=== PATIENT | male | born 1955 | race African-American/Black ===

== ENCOUNTER 2017-02-03 13:48 | Inpatient (IN) | payer OTHER ==
[~2017-02-03] VITALS: Ht 180.3 cm; Wt 88.6 kg
--- NOTE | ~2017-02-03 | CT57 ---
[facility] A Service of [facility] & [facility] RADIOLOGY TEXT RESULTS PATIENT: JOSUE RODRÍGUEZ LOCATION: [address]-18 : 55 UNIT #: [id number] AGE: [address]: Morenita Caballero MD SEX: M ORDER DR: [id number] [facility] [address] [facility]. [place], [place] [address] [id number] I MR#: [id number] Acc #: [id number] NAME: JOSUE RODRÍGUEZ : 1955 SEX: M STUDY DATE/TIME: 02/14/2017 11:12 UNIT: [facility] ROOM: [facility] STUDY DESCRIPTION: CT Chest Wo Cont Attending Physician: Morenita Caballero M.D. Ordering Physician: Morenita Caballero M.D. Primary Care Physician: Primary Care Physician No MEDICAL IMAGING REPORT This report is preliminary unless electronic signature is present EXAM CT of the chest without contrast INDICATIONS Respiratory failure since February 08, 2017. TECHNIQUE Axial CT images were obtained from the thoracic inlet through the dome of the diaphragm. No intravenous contrast material was administered. This CT exam was performed with one or more of the following radiation dose reduction techniques: automatic control, adjustment of mA and/or kV according to patient size, and iterative reconstruction. FINDINGS Endotracheal tube terminates at the level of the juanito. The thyroid gland appears unremarkable. Patient has a weighted enteric feeding tube which is seen extending at least as far as the stomach. There is a right subclavian central venous line as well as a right internal jugular vein catheter. Thoracic aorta measures within normal size limits. Main pulmonary artery is dilated as can be seen in the setting of pulmonary arterial hypertension. This was not present on February 03, 2017. Patient is noted to have a small pericardial effusion also new when compared to that examination. Patient does have patchy multifocal infiltrates seen throughout both lungs as well as dense bibasilar consolidation small bilateral pleural effusions. These are new when compared to the exam from February 03, 2017. Patient's CT of the abdomen and pelvis will be dictated separately. Patient is noted to have some body wall edema which is new when compared to the prior exam. No aggressive osseous abnormalities are seen. IMPRESSION 1. Patient is noted to have patchy multifocal infiltrates, within STS. [facility] A Service of [facility] & [facility] RADIOLOGY TEXT RESULTS PATIENT: JOSUE RODRÍGUEZ LOCATION: [facility]3-18 : 55 UNIT #: [id number] AGE: [address]: Morenita Caballero MD SEX: M ORDER DR: both lungs as well as bibasilar consolidation; some of the appearance may simply reflect some atelectasis but the possibility of multifocal pneumonia should be considered. ARDS would be another consideration in the appropriate clinical setting. 2. Enlargement of the main pulmonary artery new when compared to the prior study. The appearance can be seen in the setting of pulmonary arterial hypertension. Please see the separately dictated report for findings within the abdomen and pelvis Dictated by... Comfort Henderson M.D. THIS IS AN ELECTRONICALLY VERIFIED REPORT Comfort Henderson M.D. at 02/15/2017 6:09 PM AFF/rnr TD: 02/14/2017 17:16 JOB #: [id number] MEDICAL IMAGING REPORT Page 1 of 1 COPY
--- NOTE | ~2017-02-03 | CR72 ---
[facility] A Service of [facility] RADIOLOGY TEXT RESULTS PATIENT: JOSUE RODRÍGUEZ LOCATION: [facility]-29 : 55 UNIT #: [id number] AGE: [address]: Morenita Caballero MD SEX: M ORDER DR: [id number] [address] [address] [id number] I MR#: [id number] Acc #: [id number] NAME: JOSUE RODRÍGUEZ : 1955 SEX: M STUDY DATE/TIME: 02/17/2017 6:26 UNIT: [facility] ROOM: [facility] STUDY DESCRIPTION: CR Chest Single View Portable Attending Physician: Morenita Caballero M.D. Ordering Physician: Matias Michaud M.D. Primary Care Physician: Primary Care Physician No MEDICAL IMAGING REPORT This report is preliminary unless electronic signature is present EXAM Portable chest INDICATION Respiratory failure today. PROCEDURE Frontal view chest. COMPARISON 02/16/2017. FINDINGS Heart size stable. ET tube unchanged. Interstitial and alveolar opacity in both lungs is minimally increased. No visible pleural fluid or pneumothorax. IMPRESSION Slightly increased interstitial and alveolar opacity in both lungs, suspicious for edema but could also represent worsening pneumonia. Otherwise stable. Dictated by... Mike Wise M.D. THIS IS AN ELECTRONICALLY VERIFIED REPORT Mike Wise M.D. at 02/18/2017 8:16 AM EED/mattie TD: 02/17/2017 07:43 JOB #: [id number] [facility] A Service of [facility] RADIOLOGY TEXT RESULTS PATIENT: JOSUE RODRÍGUEZ LOCATION: [facility]09-29 : 55 UNIT #: [id number] AGE: [address]: Morenita Caballero MD SEX: M ORDER DR: MEDICAL IMAGING REPORT Page 1 of 1 COPY
--- NOTE | ~2017-02-03 | CO ---
Unit #: [id number] #: [id number] Patient: JOSUE RODRÍGUEZ [id number] [facility] [address] [facility]. [place], [place] [address] [id number] I MR#: [id number] NAME: JOSUE RODRÍGUEZ ROOM: [facility] Age: 61 Sex: M Admission Date: 02/03/2017 : 1955 Attending Physician: Morenita Caballero M.D. Primary Care Physician: Milli Primary Care Physician Consultation Date: 02/07/2017 CONSULTATION REPORT REASON FOR CONSULTATION Agitation, confusion, delirium. HISTORY OF PRESENT ILLNESS Mr. Josue Rodríguez is a 61-year-old male seen in CCU 2, bed 8 on 02/07/[address] [facility]. Patient became agitated this morning, aggressive, and hostile and security was called. Code (1) was called. Patient was given Haldol 5 and Cogentin 0.5 intramuscularly, which was repeated after an hour. Patient received Geodon 10 mg, which was ineffective. Patient also received Ativan 1 mg IM. Patient was confused and unable to give any information. Agitated and aggressive. Patient unable to give any reliable information. Most of the information obtained from the nursing staff as well as from the chart. Patient continues to be agitated and needed restraint of bilateral arms. Patient was admitted with shortness of air and respiratory failure. Patient was admitted on 02/03. Patient, according to the reports, no history of any alcohol abuse, drug abuse, depression/anxiety. Patient's vital signs: 103, 133, 155/95, and oxygen saturation 95%. PAST PSYCHIATRIC HISTORY Unremarkable for history of depression, anxiety, or any substance abuse. MEDICAL HISTORY AND MEDICATION HISTORY Medical history is remarkable for history of coronary artery disease diagnosed recently and history of depression. Medications: Patient is on: 1. Lopressor 75 mg b.i.d. 2. Hydralazine. 3. Wellbutrin XL 150 mg daily. 4. Ambien 5 mg q.h.s. p.r.n. for sleep. FAMILY HISTORY AND SOCIAL HISTORY Patient has a good support system. No history of abuse. No history of any substance abuse known at this time. REVIEW OF SYSTEMS Complete review of systems unremarkable, except as mentioned above. MENTAL STATUS EXAMINATION VITAL SIGNS: Please see above. GENERAL APPEARANCE: Patient dressed in hospital attire. Needing restraint. Agitated. Incoherent. ATTENTION SPAN AND CONCENTRATION: Poor. Unit #: [id number] #: [id number] Patient: JOSUE RODRÍGUEZ SPEECH: Unable to assess. ORIENTATION: Unable to assess. MOOD AND AFFECT: Labile. THOUGHT PROCESS/THOUGHT CONTENT: Unable to assess. RECENT AND REMOTE MEMORY/LANGUAGE/FUND OF KNOWLEDGE/INSIGHT AND JUDGEMENT: Impaired. DIAGNOSES PSYCHIATRIC: Delirium, F05. SECONDARY DIAGNOSIS: Deferred. MEDICAL DIAGNOSIS: Please refer to H and P. STRESSORS: Psychosocial stressor. ASSESSMENT/PLAN Advised to continue with the current treatment in CCU 2, bed 8. Patient received Haldol, Cogentin, and Geodon this morning. Patient is on CINM protocol. We will try to obtain collateral information. If needed, consider further adjustment of medication. Dictated by... Otilia Philip/lisandra TD: 02/08/2017 08:47 JOB #: [id number] CONSULTATION REPORT Page 1 of 1 X Ismael Navarro MD X CONSULTATION REPORT
--- NOTE | ~2017-02-03 | CR7 ---
[facility] A Service of [facility] & [facility] RADIOLOGY TEXT RESULTS PATIENT: JOSUE RODRÍGUEZ [address] UNIT #: [id number] AGE: [address]: Morenita Caballero MD SEX: M ORDER DR: [id number] [facility] [address] [facility]. [place], [place] [address] [id number] I MR#: [id number] Acc #: [id number] NAME: JOSUE RODRÍGUEZ : 1955 SEX: M STUDY DATE/TIME: 02/18/2017 15:43 [facility] STUDY DESCRIPTION: CR Abdomen Single AP View Attending Physician: Morenita Caballero M.D. Ordering Physician: Morenita Caballero M.D. Primary Care Physician: Primary Care Physician No MEDICAL IMAGING REPORT This report is preliminary unless electronic signature is present EXAM KUB INDICATIONS Abdominal pain and distension since February 18, 2017. FINDINGS Weighted enteric feeding tube is identified which probably is located within the proximal body of the stomach. Patient has some gaseous distension of loops of bowel, although the bowel gas pattern is certainly not frankly obstructive. Ospina catheter is present within the urinary bladder. Dictated by... Comfort Henderson M.D. THIS IS AN ELECTRONICALLY VERIFIED REPORT Comfort Henderson M.D. at 02/20/2017 4:22 PM AFF/psc TD: 02/19/2017 02:00 JOB #: [id number] MEDICAL IMAGING REPORT Page 1 of 1 COPY
--- NOTE | ~2017-02-03 | NM21 ---
[facility] A Service of [facility] & [facility] RADIOLOGY TEXT RESULTS PATIENT: JOSUE RODRÍGUEZ LOCATION: [facility] 548- : 55 UNIT #: [id number] AGE: [address]: Morenita Caballero MD SEX: M ORDER DR: [id number] [facility] [address] [facility]. [place], [place] [address] [id number] I MR#: [id number] Acc #: [id number] NAME: JOSUE RODRÍGUEZ : 1955 SEX: M STUDY DATE/TIME: 02/21/2017 18:40 [facility] STUDY DESCRIPTION: NM Hepatobiliary W GB Attending Physician: Morenita Caballero M.D. Ordering Physician: Morenita Caballero M.D. Primary Care Physician: Primary Care Physician No MEDICAL IMAGING REPORT This report is preliminary unless electronic signature is present EXAM Hepatobiliary scan HISTORY Abdominal pain and elevated liver enzymes; symptom duration is [address] abdomen and pelvis dated 02/14/2017. FINDINGS There is prompt uptake by hepatocytes, clearance from the blood pool, excretion of the biliary tree and filling of small bowel. There is no filling of the gallbladder. IMPRESSION Nonfilling of the gallbladder suggesting cystic duct obstruction. Dictated by... Caesar Barroso M.D. THIS IS AN ELECTRONICALLY VERIFIED REPORT Caesar Barroso M.D. at 03/01/2017 4:55 PM TEV/psc TD: 02/22/2017 02:26 JOB #: [id number] MEDICAL IMAGING REPORT Page 1 of 1 COPY
--- NOTE | ~2017-02-03 | CR6 ---
[facility] A Service of [facility] & [facility] RADIOLOGY TEXT RESULTS PATIENT: JOSUE RODRÍGUEZ LOCATION: [address]18 : 55 UNIT #: [id number] AGE: [address]: Morenita Caballero MD SEX: M ORDER DR: [id number] [facility] [address] [facility]. [place], [place] [address] [id number] I MR#: [id number] Acc #: [id number] NAME: JOSUE RODRÍGUEZ : 1955 SEX: M STUDY DATE/TIME: 02/17/2017 9:20 UNIT: [facility] ROOM: [facility] STUDY DESCRIPTION: CR Abdomen Portable Sng View Attending Physician: Morenita Caballero M.D. Ordering Physician: Matias Michaud M.D. Primary Care Physician: Primary Care Physician No MEDICAL IMAGING REPORT This report is preliminary unless electronic signature is present EXAM Abdominal radiograph INDICATION Dobbhoff tube placement. Abdominal distension since 02/13/2017. FINDINGS The enteric tube is stable in position positioned in the proximal stomach. Nonobstructive pattern. IMPRESSION Stable from 02/16/2017 with enteric tube in the proximal stomach. Dictated by... Mike Wise M.D. THIS IS AN ELECTRONICALLY VERIFIED REPORT Mike Wise M.D. at 02/18/2017 8:15 AM PRISCA/mattie TD: 02/17/2017 09:44 JOB #: [id number] MEDICAL IMAGING REPORT Page 1 of 1 COPY
--- NOTE | ~2017-02-03 | CO ---
Unit #: [id number] #: [id number] Patient: JOSUE RODRÍGUEZ [id number] [address] [place], [place] [address] [id number] I MR#: [id number] NAME: JOSUE RODRÍGUEZ ROOM: 549 Age: 61 Sex: M Admission Date: 02/03/2017 : 1955 Attending Physician: Morenita Caballero M.D. Primary Care Physician: No Primary Care Physician Consultation Date: 02/06/2017 CONSULTATION REPORT REASON FOR CONSULTATION Gross hematuria and urinary retention. HISTORY This 61-year-old man presented to the emergency department with chest pain. He was heparinized and the following day, 2 days ago, proceeded to cardiac catheterization with significant coronary disease, for which he received 3 XIENCE stents. Candie-procedurally he had catheter placed, which was subsequently removed yesterday. After the catheterization, there was brief gross hematuria, which spontaneously resolved. He has had no hematuria before. He does have a significant smoking history of 45 years, always less than a pack per day, most recently 8 cigarettes per day, and he decides that he will never smoke again. He has no history of kidney stones or urinary tract infection. CT scans as noted below. He does complain of more difficulty urinating now than before hospitalization with the sense of straining, but he is going good amounts, clear. He denies any hesitancy or trouble emptying but does have some increased frequency. At home, he has nocturia 2 to 3 times nightly but good stream, no hesitancy, no frequency or urgency by day. PAST MEDICAL HISTORY Coronary disease now diagnosed. No chronic prehospital illnesses. SURGERIES None. MEDICATIONS None on admission. ALLERGIES None known. FAMILY HISTORY Father diagnosed with prostate cancer, age 88. SOCIAL HISTORY Smoking, as noted. REVIEW OF SYSTEMS Chest pain, resolved, in addition to the history of present illness. Unit #: [id number] #: [id number] Patient: JOSUE RODRÍGUEZ PHYSICAL EXAMINATION GENERAL: The patient is lying in bed in the ICU, alert, comfortable. ABDOMEN: Abdomen is large, soft, full. No masses, tenderness, hernias or scars. GENITALIA: Phallus normal circumcised. Testes and epididymides normal, descended. RECTAL: He refuses a digital examination. EXTREMITIES: No edema. NEUROLOGIC: Intact. VITAL SIGNS: Temperature 98.8, pulse 97, blood pressure 143/72, respirations 25. Height 5'11", weight 194 pounds. DIAGNOSTIC STUDIES LABORATORY: Urinalysis shows 50-100 red cells, 2-5 white cells, no bacteria. BUN 26, creatinine 1.1, improved from admission values. Hemoglobin 12.5, WBC 9.1, platelets 249. Urine culture, preliminary - No growth. X-RAYS: CT angiogram on 02/03 urologically notable for a questionable right adrenal nodule. No pulmonary embolus. CT scan of the abdomen and pelvis without and with IV contrast with thin cuts from 02/05 rules out an adrenal nodule, although there may be some adrenal hyperplasia. Large prostate is noted. Otherwise is urologically normal. Films personally reviewed. Specifically, no masses or filling defects in the urinary system. Again, some BPH noted. IMPRESSION 1. Gross hematuria secondary to Ospina catheter placement and anticoagulation and has probably resolved. 2. Mild lower urinary tract symptoms consistent with BPH. 3. Family history of prostate cancer at an advanced age. 4. Noncompliance with examination and cystoscopy recommendations. PLAN Will check a PSA and start him on tamsulosin. Will follow up on culture results. Follow urinalysis. At some appropriate also to rule out stronger indication for cystoscopic exam in the future. He is advised, certainly, to have this done should the hematuria reoccur even if while chronically anticoagulated. Thank you, Morenita, for the consult. We will follow with you. Dictated by... Marlon Deleon M.D. HEMALATHA/arcelia TD: 02/07/2017 08:35 JOB #: [id number] Unit #: [id number] #: [id number] Patient: JOSUE RODRÍGUEZ CONSULTATION REPORT Page 1 of 1 X Marlon Deleon MD X CONSULTATION REPORT
--- NOTE | ~2017-02-03 | CR72 ---
[facility] A Service of [facility] RADIOLOGY TEXT RESULTS PATIENT: JOSUE RODRÍGUEZ LOCATION: [address] : 55 UNIT #: [id number] AGE: [address]: Morenita Caballero MD SEX: M ORDER DR: [id number] [facility] [address] [facility]. [place], [place] [address] [id number] I MR#: [id number] Acc #: [id number] NAME: JOSUE RODRÍGUEZ : 1955 SEX: M STUDY DATE/TIME: UNIT: [facility] ROOM: [facility] STUDY DESCRIPTION: CR Chest Single View Portable Attending Physician: Morenita Caballero M.D. Ordering Physician: Matias Michaud M.D. Primary Care Physician: Primary Care Physician No MEDICAL IMAGING REPORT This report is preliminary unless electronic signature is present EXAM Chest portable 02/21/2017 0628 hours HISTORY 61-year-old with 1-month history of respiratory failure, shortness of air, atrial fibrillation, hypertension and coronary stents. COMPARISON 02/21/2017 FINDINGS 2 upright portable views demonstrate a stable right PICC line and right-sided pacer wire. There is an enteric tube present with tip extending to the mid body of the stomach. There is stable cardiomegaly and tortuous aorta. Lung volumes are improved with interval decrease in bilateral mixed interstitial and airspace changes suggesting improved edema. No pneumothorax or effusion. IMPRESSION 1. Stable satisfactory positioning of support equipment. 2. Stable cardiomegaly. 3. Improved lung volumes with decrease in bilateral parenchymal changes likely improving edema. No effusion or pneumothorax. Dictated by... Carlene Gallegos M.D. THIS IS AN ELECTRONICALLY VERIFIED REPORT Carlene Gallegos M.D. at 02/22/2017 9:32 AM SMM/to TD: 02/21/2017 16:11 JOB #: [id number] [facility] A Service of [facility] RADIOLOGY TEXT RESULTS PATIENT: JOSUE RODRÍGUEZ LOCATION: [address]05 : 55 UNIT #: [id number] AGE: [address]: Morenita Caballero MD SEX: M ORDER DR: MEDICAL IMAGING REPORT Page 1 of 1 COPY
--- NOTE | ~2017-02-03 | CR72 ---
[facility] A Service of [facility] RADIOLOGY TEXT RESULTS PATIENT: JOSUE RODRÍGUEZ LOCATION: [address]-18 : 55 UNIT #: [id number] AGE: [address]: Morenita Caballero MD SEX: M ORDER DR: [id number] [facility] [address] [facility]. [place], [place] [address] [id number] I MR#: [id number] Acc #: [id number] NAME: JOSUE RODRÍGUEZ : 1955 SEX: M STUDY DATE/TIME: 02/13/2017 20:15 UNIT: [facility] ROOM: [facility] STUDY DESCRIPTION: CR Chest Single View Portable Attending Physician: Morenita Caballero M.D. Ordering Physician: Erik Brown M.D. MEDICAL IMAGING REPORT This report is preliminary unless electronic signature is present EXAM Chest portable, 02/13/2017 2015 hours CLINICAL HISTORY Respiratory failure. Shortness of air, chest pain. Postop pacemaker placement for atrial fibrillation today. COMPARISON 02/13/2017 at O230 hours. FINDINGS Portable upright chest demonstrates an endotracheal tube 2.5 cm above the juanito. There is a right subclavian pacer wire present with tip at the right ventricle. There is a right IJ catheter with tip at junction of SVC and right atrium. There is bilateral interstitial change which is stable. There is no pneumothorax. IMPRESSION 1. Endotracheal tube 2.5 cm above the juanito. There is a right subclavian pacer wire present with tip terminating over the right ventricle. There is a right IJ catheter unchanged with tip at junction of SVC and right atrium. There is an enteric tube with tip in the proximal stomach. 2. Stable cardiomegaly and bilateral interstitial changes. 3. No pleural effusion or pneumothorax. Dictated by... Carlene Gallegos M.D. THIS IS AN ELECTRONICALLY VERIFIED REPORT Carlene Gallegos M.D. at 02/14/2017 2:38 PM [facility] A Service of [facility] RADIOLOGY TEXT RESULTS PATIENT: JOSUE RODRÍGUEZ LOCATION: [facility]3-18 : 55 UNIT #: [id number] AGE: [address]: Morenita Caballero MD SEX: M ORDER DR: Luanne TD: 02/13/2017 21:11 JOB #: [id number] MEDICAL IMAGING REPORT Page 1 of 1 COPY
--- NOTE | ~2017-02-03 | CR7 ---
[facility] A Service of [facility] & [facility] RADIOLOGY TEXT RESULTS PATIENT: JOSUE RODRÍGUEZ LOCATION: [facility] 548-01 : 55 UNIT #: [id number] AGE: [address]: Morenita Caballero MD SEX: M ORDER DR: [id number] [facility] [address] [facility]. [place], [place] [address] [id number] I MR#: [id number] Acc #: [id number] NAME: JOSUE RODRÍGUEZ : 1955 SEX: M STUDY DATE/TIME: 02/24/2017 5:43 UNIT: [facility] ROOM: [facility] STUDY DESCRIPTION: CR Abdomen Single AP View Attending Physician: Morenita Caballero M.D. Ordering Physician: Morenita Caballero M.D. Primary Care Physician: Primary Care Physician No MEDICAL IMAGING REPORT This report is preliminary unless electronic signature is present EXAM Abdomen AP single view HISTORY Feeding tube placement, second of two x-rays. COMMENT Supine view of the upper abdomen shows a feeding tube terminating expected location mid stomach directed laterally. The film is timed 05:43 on 02/24/2017. Visualized bowel gas pattern is unremarkable. Cardiac silhouette enlargement is partly seen with serafin of pacemaker leads. IMPRESSION Feeding tube terminates expected location of mid stomach directed laterally on film timed 05:43 on 02/24/2017. Dictated by... Frida Silveira M.D. THIS IS AN ELECTRONICALLY VERIFIED REPORT Frida Silveira M.D. at 02/25/2017 4:50 PM SWAPNA/mamta TD: 02/24/2017 22:27 JOB #: [id number] MEDICAL IMAGING REPORT Page 1 of 1 COPY
--- NOTE | ~2017-02-03 | CR72 ---
[facility] A Service of [facility] RADIOLOGY TEXT RESULTS PATIENT: JOSUE RODRÍGUEZ LOCATION: [facility] : 55 UNIT #: [id number] AGE: [address]: Morenita Caballero MD SEX: M ORDER DR: [id number] [facility] [address] [facility]. [place], [place] [address] [id number] I MR#: [id number] Acc #: [id number] NAME: JOSUE RODRÍGUEZ : 1955 SEX: M STUDY DATE/TIME: 02/05/2017 8:03 UNIT: [facility] ROOM: [facility] STUDY DESCRIPTION: CR Chest Single View Portable Attending Physician: Morenita Caballero M.D. Ordering Physician: Morenita Caballero M.D. Primary Care Physician: No Primary Care Physician MEDICAL IMAGING REPORT This report is preliminary unless electronic signature is present EXAM AP portable chest. Date: 02/05/2017. HISTORY Chest pain, shortness breath since 02/03/2017. COMPARISON AP portable chest 02/03/2017, CT chest 02/03/2017. FINDINGS Stable ouwt-gv-ftjdakju cardiac enlargement. New right basilar airspace disease has developed, favored to represent atelectasis. Left lung appears clear. No pleural effusion. Stable asymmetric elevation right hemidiaphragm. IMPRESSION 1. Development mild right basilar airspace disease, favored to represent atelectasis. 2. Stable cardiomegaly without overt changes of pulmonary edema at this time. Dictated by... Torie Jackson M.D. THIS IS AN ELECTRONICALLY VERIFIED REPORT Torie Jackson M.D. at 02/06/2017 11:56 AM LLH/gz TD: 02/05/2017 13:58 JOB #: [id number] [facility] A Service of [facility] RADIOLOGY TEXT RESULTS PATIENT: JOSUE RODRÍGUEZ LOCATION: [facility] : 55 UNIT #: [id number] AGE: [address]: Morenita Caballero MD SEX: M ORDER DR: MEDICAL IMAGING REPORT Page 1 of 1 COPY
--- NOTE | ~2017-02-03 | EKG ---
PATIENT: JOSUE RODRÍGUEZ UNIT #: [id number] Ventricular Rate: 82 BPM Atrial Rate: 74 BPM QRS Duration: 86 ms Q-T Interval: 368 ms QTC Calculation(Bezet): 429 ms Calculated R [place]: 58 degrees Calculated T [place]: 42 degrees Diagnosis Line: Atrial fibrillation Diagnosis Line: Left ventricular hypertrophy Diagnosis Line: Marked T wave abnormality, consider lateral Diagnosis Line: ischemia Diagnosis Line: Abnormal ECG Diagnosis Line: When compared with ECG of 04-FEB-2017 06:14, Diagnosis Line: (unconfirmed) Diagnosis Line: QT has shortened Diagnosis Line: Confirmed by ORQUIDEA PAULSON MD ([id number]) on Diagnosis Line: 02/04/2017 8:30:36 PM INTERPRETING MD: CARLIN
--- NOTE | ~2017-02-03 | EKG ---
PATIENT: JOSUE RODRÍGUEZ UNIT #: [id number] Ventricular Rate: 109 BPM Atrial Rate: 111 BPM QRS Duration: 94 ms Q-T Interval: 306 ms QTC Calculation(Bezet): 412 ms Calculated R Lincoln: 80 degrees Calculated T Lincoln: -103 degrees Diagnosis Line: Atrial fibrillation with rapid ventricular Diagnosis Line: response Diagnosis Line: Left ventricular hypertrophy Diagnosis Line: ST and T wave abnormality, consider inferolateral Diagnosis Line: ischemia Diagnosis Line: Abnormal ECG Diagnosis Line: Diagnosis Line: Confirmed by ANTOINETTE BOWIE MD ([id number]) on 02/13/2017 Diagnosis Line: 7:28:05 AM INTERPRETING MD: JAMIR TEAGUE
--- NOTE | ~2017-02-03 | CR72 ---
[facility] A Service of [facility] RADIOLOGY TEXT RESULTS PATIENT: JOSUE RODRÍGUEZ LOCATION: [address] : 55 UNIT #: [id number] AGE: [address]: Morenita Caballero MD SEX: M ORDER DR: [id number] [facility] [address]. [place], [place] [address] [id number] I MR#: [id number] Acc #: [id number] NAME: JOSUE RODRÍGUEZ : 1955 SEX: M STUDY DATE/TIME: 02/23/2017 04:27 UNIT: [facility] ROOM: [facility] STUDY DESCRIPTION: CR Chest Single View Portable Attending Physician: Morenita Caballero M.D. Ordering Physician: Matias Michaud M.D. Primary Care Physician: No Primary Care Physician MEDICAL IMAGING REPORT This report is preliminary unless electronic signature is present EXAM Portable chest 02/23 at 04:27 INDICATIONS Respiratory failure, shortness of air for 20 days. FINDINGS AP portable chest compared with 02/22/2017. FINDINGS Cardiomegaly stable. Bilateral interstitial infiltrates are stable probably reflect mild edema. Right arm PICC in the right atrial level. Transvenous pacing lead is projecting over the RV. No pneumothorax. Dictated by... Marlon Urrutia Jr., M.D. THIS IS AN ELECTRONICALLY VERIFIED REPORT Marlon Urrutia Jr., M.D. at 02/24/2017 4:57 AM NANCY/jin TD: 02/23/2017 23:45 JOB #: [id number] MEDICAL IMAGING REPORT Page 1 of 1 COPY
--- NOTE | ~2017-02-03 | CR6 ---
[facility] A Service of [facility] RADIOLOGY TEXT RESULTS PATIENT: JOSUE RODRÍGUEZ LOCATION: [facility] 548-01 : 55 UNIT #: [id number] AGE: [address]: Morenita Caballero MD SEX: M ORDER DR: [id number] [facility] [address] [facility]. [place], [place] [address] [id number] I MR#: [id number] Acc #: [id number] NAME: JOSUE RODRÍGUEZ : 1955 SEX: M STUDY DATE/TIME: 02/25/2017 18:00 UNIT: [facility] ROOM: [facility] STUDY DESCRIPTION: CR Abdomen Portable Sng View Attending Physician: Morenita Caballero M.D. Ordering Physician: Morenita Caballero M.D. Primary Care Physician: No Primary Care Physician MEDICAL IMAGING REPORT This report is preliminary unless electronic signature is present EXAM Portable abdomen HISTORY Dobbhoff tube placement. Abdomen pain today. FINDINGS Portable radiograph of the mid and upper abdomen demonstrates feeding tube is curled in the left upper quadrant with its tip in the proximal gastric body 13 cm beyond the EG junction. Moderate amount of contrast material in the partly visualized colon and small amount of contrast in mid abdominal small bowel. No bowel dilatation is identified. Dictated by... Zaid Queen M.D. THIS IS AN ELECTRONICALLY VERIFIED REPORT Zaid Queen M.D. at 02/26/2017 11:42 PM DFL/df TD: 02/26/2017 08:20 JOB #: [id number] MEDICAL IMAGING REPORT Page 1 of 1 COPY
--- NOTE | ~2017-02-03 | CO ---
Unit #: [id number] #: [id number] Patient: JOSUE RODRÍGUEZ [id number] [address] [place], [place] [address] [id number] I MR#: [id number] NAME: JOSEU RODRÍGUEZ ROOM: [facility] Age: 61 Sex: M Admission Date: 02/03/2017 : 1955 Attending Physician: Morenita Caballero M.D. Primary Care Physician: No Primary Care Physician CONSULTATION REPORT REASON FOR CONSULTATION Shortness of breath, respiratory failure. HISTORY OF PRESENT ILLNESS The patient is a 61-year-old gentleman who denies any past medical history, really has not seen a physician. Presents with chest pain and ultimately found to have an acute DE, has undergone cardiac catheterization with percutaneous intervention. He has had increasing shortness of breath and increasing oxygen needs. CT angiogram was performed. Unfortunately, that study is unavailable for me to review because the DR system is malfunctioning. However, according to the report, there was a question of right lower lobe pneumonitis. There was no PE. CT of the abdomen performed today I was allowed to view the images, and there is an apparent right lower lobe area of consolidation consistent with pneumonia. He really denies sputum production. He does have some chest discomfort when breathing; however, it is mainly on the left side and anterior. No wheezing or hemoptysis. PAST MEDICAL HISTORY He denies lung disease, heart disease, diabetes, cancer of any type, hypertension. MEDICINES AT HOME None. ALLERGIES None. SOCIAL HISTORY He does smoke. 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 FAMILY HISTORY Brother of lung cancer. REVIEW OF SYSTEMS No fever, chills, weight loss. Did have shortness of breath. Pulmonary review of systems as above. No anginal chest pain. Did have some chest discomfort anteriorly related to deep breathing and movement. No abdominal pain, melena, hematochezia. He did have some hematuria. Urology is consulted. No focal weakness, paraesthesias, leg pain, swelling. He had no wheezing, chronic cough, sputum production prior to this. He did state in the spring he had one episode of "a severe cold" with cough and sputum but he got over it with ostd-ezf-lzeuxpy remedies. Unit #: [id number] #: [id number] Patient: JOSUE RODRÍGUEZ PHYSICAL EXAMINATION GENERAL: Examination reveals a gentleman who is in no acute distress. He is on a 50% face mask. VITAL SIGNS: He is afebrile. Pulse is 102, respiratory rate 21, blood pressure 168/98. Height 5 foot 11 inches, weight 194 pounds. BMI is 27. HEENT: Pupils equal, round, and reactive to light. Sclerae anicteric. Head atraumatic. Mucous membranes moist. He does have natural teeth. They are in good dentition. NECK: Supple. No supraclavicular or cervical adenopathy appreciated. CHEST: No wheeze, stridor. He does have egophony, right lower lobe. CARDIAC: Reveals an irregular rhythm. Soft murmur. No gallop. ABDOMEN: Soft, nontender. No hepatomegaly or rebound. EXTREMITIES: Reveal no clubbing, cyanosis, or edema. No calf tenderness. SKIN: Warm and dry without rash or diaphoresis. NEUROLOGIC: Grossly intact. No focal muscle or sensory deficits. DIAGNOSTIC STUDIES LABORATORY: BUN 31, creatinine 1.5, sodium 129. Troponin 11.88. BNP 191. INR normal. White blood cell count 11.8, hemoglobin 11.9, platelet count normal. Urine culture pending. I do not see a urinalysis, although urology has been consulted. IMAGING: Radiographs as above. IMPRESSION 1. Acute myocardial infarction. 2. Acute hypoxemic respiratory failure. 3. Right lower lobe pneumonia. 4. Tobacco use, consider possible underlying chronic obstructive pulmonary disease. 5. Atrial fibrillation. 6. Hematuria. PLAN Certainly, no smoking is of great benefit. This has been discussed with the patient. Will start antibiotics NADIA. I think he fits the risk category of community-acquired pneumonia. Oxygen to maintain adequate saturations. I will check a strep and legionella urinary antigen as well as a urine for urinalysis. Ultimately, he would benefit from outpatient PFTs and insurance that this infiltrate clears. Thank you very much for allowing me to participate in the care of Mr. Rodríguez. ADDITIONAL JOB #: [id number] Dictated by... Matias Michaud M.D. YEE/rosalie TD: 02/06/2017 10:31 JOB #: [id number] Unit #: [id number] #: [id number] Patient: JOSUE RODRÍGUEZ CONSULTATION REPORT Page 1 of 1 X Matias Michaud MD CONSULTATION REPORT
--- NOTE | ~2017-02-03 | MR122 ---
[facility] A Service of [facility] RADIOLOGY TEXT RESULTS PATIENT: JOSUE RODRÍGUEZ LOCATION: [address] : 55 UNIT #: [id number] AGE: [address]: Morenita Caballero MD SEX: M ORDER DR: [id number] [facility] [address] [place], [place] [address] [id number] I MR#: [id number] Acc #: [id number] NAME: JOSUE RODRÍGUEZ : 1955 SEX: M STUDY DATE/TIME: 02/12/2017 20:44 UNIT: [facility] ROOM: [facility] STUDY DESCRIPTION: MR MRA Head Wo Contrast Attending Physician: Morenita Caballero M.D. Ordering Physician: Alexandria Puri A.P.R.N. Primary Care Physician: No Primary Care Physician MRI CENTER REPORT This report is preliminary unless electronic signature is present. EXAM MR angiogram brain, without contrast. HISTORY Left-side weakness for 3 days. Decreased level of consciousness. FINDINGS MR angiogram of the brain was performed without contrast. Exam sensitivity is partly limited by motion. No major intracranial arterial occlusion is identified. There are questionable areas of short segment dazn-qf-jsaqpozp arterial stenosis in the distal right P2, in the proximal left P2, and in the M1 segments bilaterally and in the left proximal and distal A1 segment. These findings could alternatively be artifactual secondary to motion. No aneurysm or vascular malformation is identified, but again sensitivity is limited by motion. The intracranial internal carotid arteries and distal intracranial vertebral arteries and basilar artery are patent with no major stenosis. IMPRESSION 1. No major intracranial arterial occlusion. 2. Questionable yjjr-ek-ulsijgnx multifocal short segment stenoses as detailed above, could be artifactual secondary to the patient motion. 3. No major vessel displacement. Dictated by... Zaid Queen M.D. THIS IS AN ELECTRONICALLY VERIFIED REPORT Zaid Queen M.D. at 02/13/2017 3:19 PM CARLOS EDUARDO/seble STS. [facility] A Service of [facility] RADIOLOGY TEXT RESULTS PATIENT: JOSUE RODRÍGUEZ LOCATION: [facility]3-18 : 55 UNIT #: [id number] AGE: [address]: Morenita Caballero MD SEX: M ORDER DR: TD: 02/13/2017 00:38 JOB #: [id number] MRI CENTER REPORT Page 1 of 1 COPY
--- NOTE | ~2017-02-03 | CT15 ---
[facility] A Service of [facility] RADIOLOGY TEXT RESULTS PATIENT: JOSUE RODRÍGUEZ LOCATION: [address]18 : 55 UNIT #: [id number] AGE: [address]: Morenita Caballero MD SEX: M ORDER DR: [id number] [facility] [address] [facility]. [place], [place] [address] [id number] I MR#: [id number] Acc #: [id number] NAME: JOSUE RODRÍGUEZ : 1955 SEX: M STUDY DATE/TIME: 02/03/2017 15:49 UNIT: [facility] ROOM: [facility] STUDY DESCRIPTION: CT Angio Chest Attending Physician: Morenita Caballero M.D. Ordering Physician: Steven Barnes D.O. Primary Care Physician: Primary Care Physician No MEDICAL IMAGING REPORT This report is preliminary unless electronic signature is present EXAM CT chest PE protocol HISTORY Chest pain since 2 o'clock this morning. FINDINGS Axial images performed through the chest following IV contrast. 3-D multiplanar reconstructions. TECHNIQUE This CT exam was performed with one or more of the following radiation dose reduction techniques: automatic exposure control, adjustment of mA and/or kV according to patient size, and iterative reconstruction. FINDINGS Ground-glass opacity noted in the dependent aspect of the right lower lobe probably represents atelectasis or less likely focal pneumonitis. No dense consolidation or effusions. Mild prominence of the peripheral interstitium and thickening of the interlobular septa could reflect mild CHF. There is cardiomegaly. No evidence of pulmonary embolus. No significant adenopathy. Aorta free of dissection or aneurysm. Upper abdomen unremarkable except for a small right adrenal nodule measuring about 1.2 cm, indeterminate by CT. Osseous structures and thoracic inlet appear normal. IMPRESSION 1. No evidence of pulmonary embolus. 2. Parenchymal opacity dependent aspect right lower lobe with a ground-glass opacity. This may be related atelectasis though an area of focal pneumonitis not excluded. Due to its nonsegmental distribution and dependent distribution I suspect this represents [facility] A Service of [facility] RADIOLOGY TEXT RESULTS PATIENT: JOSUE RODRÍGUEZ LOCATION: [facility]3 [facility]3-18 : 55 UNIT #: [id number] AGE: [address]: Morenita Caballero MD SEX: M ORDER DR: atelectasis. 3. Mild interstitial prominence and cardiomegaly could reflect early CHF but no overt signs of heart failure. 4. Incidental right adrenal nodule indeterminate on this contrasted CT. Dictated by... Jc Rod M.D. THIS IS AN ELECTRONICALLY VERIFIED REPORT Jc Rod M.D. at 02/04/2017 7:15 AM IZA/mamta TD: 02/04/2017 03:40 JOB #: [id number] MEDICAL IMAGING REPORT Page 1 of 1 COPY
--- NOTE | ~2017-02-03 | CT4 ---
[facility] A Service of [facility] RADIOLOGY TEXT RESULTS PATIENT: JOSUE RODRÍGUEZ LOCATION: [facility]318 : 55 UNIT #: [id number] AGE: [address]: Morenita Caballero MD SEX: M ORDER DR: [id number] [facility] [address] [facility]. [place], [place] [address] [id number] I MR#: [id number] Acc #: [id number] NAME: JOSUE RODRÍGUEZ : 1955 SEX: M STUDY DATE/TIME: 02/14/2017 11:12 UNIT: [facility] ROOM: [facility] STUDY DESCRIPTION: CT Abd and Pelv Wo Cont Attending Physician: Morenita Caballero M.D. Ordering Physician: Matias Michaud M.D. Primary Care Physician: No Primary Care Physician MEDICAL IMAGING REPORT This report is preliminary unless electronic signature is present EXAM CT abdomen and pelvis without contrast. INDICATION Recent myocardial infarction. Abdominal distension today. PROCEDURE Unenhanced CT abdomen and pelvis. This CT exam was performed with one or more of the following radiation dose reduction techniques: automatic exposure control, adjustment of mA and/or kV according to patient size, and iterative reconstruction. COMPARISON 02/05/2017 FINDINGS Refer to the separately dictated chest CT for thoracic findings. ABDOMEN WITHOUT CONTRAST: The liver, spleen, kidneys, adrenal glands, pancreas show no acute abnormality. There is high-attenuation material in the gallbladder similar to the prior. No CT evidence for acute inflammation. An enteric tube is in the stomach. Bowel loops are nondilated. Moderate colonic stool. PELVIS WITHOUT CONTRAST: Ospina catheter in the bladder. There is a small to moderate amount of urine in the bladder. No pelvic mass or free fluid. No aggressive appearing bone lesions. IMPRESSION 1. High-attenuation material in the gallbladder similar to the prior but no CT evidence for acute inflammation. 2. Moderate colonic stool burden. [facility] A Service of [facility] RADIOLOGY TEXT RESULTS PATIENT: JOSUE RODRÍGUEZ LOCATION: [facility]318 : 55 UNIT #: [id number] AGE: [address]: Morenita Caballero MD SEX: M ORDER DR: 3. Ospina catheter in the bladder. Small to moderate amount of urine in the bladder. Correlate with catheter function. 4. Refer to the separately dictated chest CT. Dictated by... Mike Wise M.D. THIS IS AN ELECTRONICALLY VERIFIED REPORT Mike Wise M.D. at 02/18/2017 8:20 AM PRISCA/efrain TD: 02/14/2017 15:23 JOB #: [id number] MEDICAL IMAGING REPORT Page 1 of 1 COPY
--- NOTE | ~2017-02-03 | CO ---
Unit #: [id number] #: [id number] Patient: JOSUE RODRÍGUEZ [id number] [address] [place], [place] [address] [id number] I MR#: [id number] NAME: JOSUE RODRÍGUEZ ROOM: [facility] Age: 61 Sex: M Admission Date: 02/03/2017 : 1955 Attending Physician: Morenita Caballero M.D. Primary Care Physician: Primary Care Physician No Consultation Date: 02/21/2017 CONSULTATION REPORT REASON FOR CONSULTATION Leukocytosis. HISTORY OF PRESENT ILLNESS The patient is a 61-year-old male, who is very lethargic, unable to give any specifics on the history, all of this is from the chart. Apparently, the patient was admitted with shortness of breath, pulmonary symptoms, found to have acute myocardial infarction, underwent cardiac cath with percutaneous intervention, also had rapid rate atrial fibrillation and now has a transvenous pacemaker. As mentioned above, he went into respiratory failure, requiring mechanical ventilation. At one point, he had acute kidney injury. There were some questions of pneumonia. He has gotten bilateral pulmonary infiltrates. His multiple sputum and blood cultures have been negative. He had been on steroids since the 3rd of this month. His WBC count is increasing. He had some right upper quadrant tenderness. HIDA scan is ordered. A CT scan in the past has been negative for any gallbladder disease. Today is, I think, day 17 of . He has a sputum culture that came back positive for Fariba, so high dose fluconazole was started yesterday. At some point, he had also been on vancomycin and doxycycline, which had been stopped since. Infectious Disease consultation is requested for further evaluation and antibiotic management. PAST MEDICAL HISTORY Unremarkable. SOCIAL HISTORY Noncontributory. FAMILY HISTORY Noncontributory. ALLERGIES No known drug allergies. CURRENT MEDICATIONS List reviewed. Antibiotics, as noted above. PHYSICAL EXAMINATION GENERAL: Awake, but lethargic. VITAL SIGNS: Temperature 99.1, pulse 85, respirations 13, blood pressure 143/77. HEENT: Unremarkable. NECK: Supple. Pupils are round, regular, and reactive to light and Unit #: [id number] #: [id number] Patient: JOSUE RODRÍGUEZ accommodation. CHEST: Clear to auscultation. Good air movements bilaterally. HEART: Normal S1, S2. No S3, S4. No murmurs appreciated. ABDOMEN: Soft, nontender. Bowel sounds positive. No organomegaly. Some discomfort on the right upper quadrant, but was much less pronounced when he was engaged in conversation. EXTREMITIES: Show trace bipedal edema. He has a Cordis in the subclavian on the right side for his transvenous pacemaker. He has right upper extremity PICC line. DIAGNOSTIC STUDIES IMAGING STUDIES: Chest x-ray shows bilateral infiltrates without any significant change. A CT scan of the abdomen and pelvis done on the 3rd of this month shows some edema in the gallbladder similar to previous studies, but no acute inflammation, some stool burden. CT scan of the chest on the same day shows patchy multifocal infiltrates. LABORATORY RESULTS: BUN 61, creatinine 1.6, glucose 168, sodium 152, total protein 6.2, total bilirubin 0.9. AST 45, ALT 38, alkaline phosphatase 73. BNP 428. Procalcitonin 48 hours ago was 0.08. WBC 20.1, it was 17.2 yesterday, hemoglobin 9.9, platelets 343. Multiple blood cultures, sputum cultures, urine cultures have been negative so far. ASSESSMENT 1. Leukocytosis. 2. Respiratory failure. 3. Bilateral pulmonary infiltrates, possibly acute respiratory distress syndrome. 4. Acute kidney injury. 5. Altered mental status, resolving. 6. Acute myocardial infarction. 7. Atrial fibrillation. PLAN At this time, the most likely cause of patient's increased WBC count is steroids. No evidence of acute infection except for the fact that the patient has diarrhea, so we will go and check stool for C difficile toxin. The sputum Fariba is a colonization. The patient does not need high dose Diflucan, in fact does not need any antifungal therapy. It has been more than 2 weeks for the Zosyn. All cultures are negative. The patient clinically stable. Therefore, we will go ahead and discontinue Zosyn also and observe. Further recommendation depending upon the course. I would like thank Dr. Paredes for asking us to participate in the care of this patient. We will follow this patient along with you. Dictated by.Kae. Otilia Reyez TD: 02/22/2017 06:11 JOB #: [id number] Unit #: [id number] #: [id number] Patient: ANNE,JOSUE CONSULTATION REPORT Page 1 of 1 X Santi Rutherford MD CONSULTATION REPORT
--- NOTE | ~2017-02-03 | CR72 ---
[facility] A Service of [facility] RADIOLOGY TEXT RESULTS PATIENT: JOSUE RODRÍGUEZ LOCATION: [facility] : 55 UNIT #: [id number] AGE: [address]: Morenita Caballero MD SEX: M ORDER DR: [id number] [facility] [address] [facility]. [place], [place] [address] [id number] I MR#: [id number] Acc #: [id number] NAME: JOSUE RODRÍGUEZ : 1955 SEX: M STUDY DATE/TIME: 02/16/2017 4:31 UNIT: [facility] ROOM: [facility] STUDY DESCRIPTION: CR Chest Single View Portable Attending Physician: Morenita Caballero M.D. Ordering Physician: Matias Michaud M.D. Primary Care Physician: Primary Care Physician No MEDICAL IMAGING REPORT This report is preliminary unless electronic signature is present EXAM AP portable chest 02/16/2017 HISTORY Respiratory failure. Patient on ventilator. Follow up cardiopulmonary status. TECHNIQUE AP portable chest x-ray. FINDINGS The exam shows mild diffuse interstitial edema or infiltrate throughout both lungs with mild improvement since yesterday. No dense airspace consolidation. No visible pleural effusion. Cardiomegaly is stable. Endotracheal tube, right arm PICC, right arm subclavian central venous catheter and Dobbhoff feeding tube remain in good position. IMPRESSION 1. Slight radiographic improvement in mild diffuse interstitial infiltrate or edema since yesterday. 2. Support equipment in good position. Dictated by... Tristin Morris M.D. THIS IS AN ELECTRONICALLY VERIFIED REPORT Trisitn Morris M.D. at 02/16/2017 9:59 PM JAYESH/mattie TD: 02/16/2017 07:45 JOB #: [id number] [facility] A Service of [facility] RADIOLOGY TEXT RESULTS PATIENT: JOSUE RODRÍGUEZ LOCATION: [facility] : 55 UNIT #: [id number] AGE: [address]: Morenita Caballero MD SEX: M ORDER DR: MEDICAL IMAGING REPORT Page 1 of 1 COPY
--- NOTE | ~2017-02-03 | CO ---
Unit #: [id number] #: [id number] Patient: JOSUE RODRÍGUEZ [id number] [facility] [address] [facility]. [place], [place] [address] [id number] I MR#: [id number] NAME: JOSUE RODRÍGUEZ ROOM: [facility]3 Age: 61 Sex: M Admission Date: 02/03/2017 : 1955 Attending Physician: Morenita Caballero M.D. Consultation Date: 02/09/2017 CONSULTATION REPORT PRIMARY CARE PHYSICIAN Not listed. CONSULTING PHYSICIAN Cardiology, Dr. Caballero. REASON FOR CONSULTATION Mental status changes. PATIENT IDENTIFICATION This is a 61-year-old male evaluated in ICU 18 at [facility]. SOURCE OF INFORMATION Obtained from the medical record. HISTORY OF PRESENT ILLNESS This is a 61-year-old male with a past medical history of tobacco use, but otherwise no real known past medical history as he has not seen a physician in quite some time per the medical record. He presented to [facility] on 02/03/2017 with chest pain and was admitted for an acute non-STEMI. He underwent a cardiac catheterization with percutaneous intervention and multiple stents. He has been followed by Cardiology and also by Pulmonology as he apparently had some increasing shortness of breath and increasing oxygen needs. He is being treated for respiratory failure and apparently there is workup that revealed some areas of consolidation. He has also been followed by, seen by Urology for hematuria and DVT prophylaxis with Lovenox was stopped. He does remain on Brilinta and aspirin given his cardiac status. Apparently, the patient had become increasingly confused and agitated on the January 2017. The patient became agitated, aggressive, and hostile security had to be called. The patient was given Haldol and Cogentin as well as Geodon, which was essentially ineffective. He received some IM Ativan and Psychiatry was asked to evaluate. He was sent to the ICU on CIWA protocol out of concern for alcohol withdrawal although the family reports that he has not had any recent history of alcohol abuse though there is a question of whether he may have had a history of remote alcohol abuse. He ended up being intubated on the and remains intubated. At this time, Neurology is asked to further evaluate. Of note, it looks like the patient was started on Wellbutrin ER 150 mg on the and it was stopped on the . Neurology was asked to evaluate further for mental status changes. The patient is intubated and sedated. He is on propofol 40 mcg. On sedation vacation, I evaluated the patient. He does not follow commands. He does not visually track. However, several minutes of Unit #: [id number] #: [id number] Patient: JOSUE RODRÍGUEZ allowing the propofol to be off, he becomes very tachypneic and diaphoretic. He does not follow commands and responses to noxious stimuli. He appears to have more response on the right and decreased response on the left. I repeatedly elicited noxious stimuli with deep nail bed pressure to evaluate and he did seem to have more response over time, but again he had less ever response on the left compared to the right in both upper and lower extremities. I am unable to evaluate for any facial weakness due to his intubation. He has positive eye signs. His pupils are small, but reactive and equal. He has positive corneals. He is definitely over breathing the vent. He is quite tachypneic, off sedation. He does not follow commands. He seems to be have a more robust tone on the right side as well. No seizure activity seen. He has been afebrile. The patient is unable to provide any history or review of systems. PAST MEDICAL HISTORY Tobacco use, otherwise no known past medical history. ALLERGIES No known drug allergies. HOME MEDICATIONS None reported. HOSPITAL MEDICATIONS As per chart have been reviewed. FAMILY HISTORY Unknown. SOCIAL HISTORY The patient apparently has a history of tobacco abuse. I do not know if he was currently smoking on admission. He apparently had denied alcohol use and illicit drug use per the medical record when he was awake and able to provide a history. His urine tox screen done today shows benzodiazepines though he has received benzodiazepines on this admission. Apparently, there is a question that he may have had alcohol abuse in the remote past, but family reports none recently that they know of. I believe the patient lives alone, I am unable to obtain any history or review of systems from the patient as he is intubated and sedated, and there is no family available at this time. REVIEW OF SYSTEMS Unable to obtain from the patient given his mental status. PHYSICAL EXAMINATION VITAL SIGNS: Temperature 98.4, he has been afebrile. He has not been hyperthermic or hypothermic. Pulse 127, respirations documented this morning was 39. He is sitting at about 25 when sedated. Blood pressure 152/90, oxygen saturation 97% on the vent. Height 5 feet and 11 inches. Weight 198 pounds. BMI 26. NEUROLOGIC: The patient is intubated and sedated. On sedation vacation with propofol off for about 10 minutes, the patient does become more awake, again as discussed above, he becomes diaphoretic and tachypneic. He does not follow commands. He does not visually track. He has positive eye signs. He does withdraw from noxious stimuli, but more so on the right compared to the left. He certainly has a decreased response on the left compared to the right and has more robust tone on the right compared to the left. Cranial nerve exam unable to Unit #: [id number] #: [id number] Patient: JOSUE RODRÍGUEZ evaluate hudd[place] of vision. Eyes are conjugate without ptosis or nystagmus or hippus. Extraocular movements intact. Unable to evaluate sensation of face and scalp, and strength of muscles of facial expression at this time due to intubation in place. Unable to assess hearing, tongue, uvula, or palate. Head turning or shoulder shrug. Neck does appear to be supple motor exam as discussed above. Sensory exam as discussed above in response to noxious stimuli. No posturing seen. No triple flexion seen. Gait and Romberg deferred. Reflexes, 1/4. Toes are mute. Coordination, unable to assess. DIAGNOSTIC STUDIES CT of the head done without contrast on 02/07, impression per Radiology report, normal noncontrast head CT. Labs: Troponin 1.86 most recent prior to that was 1.57. Urine drug screen positive for benzodiazepine which he did receive in the hospital in the urine tox from today. Preliminary blood cultures from yesterday are negative after 24 hours x2 sets. Ammonia 12, CK 345. Sodium 141, potassium 3.7, chloride 110, CO2 of 23, glucose 117, BUN 29, creatinine 1.5, estimated GFR 57.4, calcium 8.7. PT 11.4, INR 1.1, and PTT 30.3. White blood cell count 8.4, hemoglobin 11.4, hematocrit 39.6, and platelet count 311. Urinalysis shows 1+ leukocyte esterase, 2+ protein, 4+ blood, 100 to 200 red blood cells, 2 to 5 white cells, negative for bacteria. B12, 531. Other labs and diagnostic studies are as per chart, have been reviewed. EKGs done have shown atrial fibrillation with rapid ventricular response per Cardiology, he is being maintained on rhythm control medications. IMPRESSION 1. Altered mental status with decreased response on the right side. We will request MRI of the brain. Nursing states the patient is clinically stable to go for imaging. 2. Left lower lobe infiltrate, per Pulmonology. 3. Acute respiratory failure. 4. Atrial fibrillation/tachy/mello. Cardiology following. 5. Hematuria, deep venous thrombosis prophylaxis, Lovenox held. 6. Emr-NG-pjqackmjt myocardial infarction, status post catheterization with PCI and stenting. Cardiology following. PLAN I discussed the case at length with Dr. Guillaume. Request MRI of the brain, which is recommended nothing to suggest a sudden acute primary neurologic change that would be amenable to intervention as his last normal from a neurologic status is apparently at least 24 to 48 hours ago. Nothing at this time to suggest seizure, status epilepticus, BUS AIDE infection, or neuroleptics malignant syndrome. The patient was recently started on Wellbutrin, and was stopped yesterday, which can cause agitation and other adverse reaction, but would not explain the patient's focal decreased response on the left side. Examination is limited as the patient is not able to cooperate, but at this point, MRI imaging would be helpful in excluding or including certain diagnoses. Again, he is not a candidate for acute intervention with alteplase or thrombectomy and examination is limited. We will continue medications. Would avoid high-dose anticoagulation given hematuria and also pending ruling out very large infarct given that would put him at risk for hemorrhagic conversion, but if he does have an infarct, we have to consider that as he is in atrial fibrillation which was present on admission, but has a variable rate. Further recommendations to be made pending workup and further Unit #: [id number] #: [id number] Patient: JOSUE RODRÍGUEZ clinical course. We thank you for allowing us to assist in the care of this patient. We will follow along with you. Case was discussed with Dr. Guillaume at length and imaging and labs were reviewed and discussed with him, and he agrees with the plan of care and above recommendations. Dictated by... Alexandria Puri A.P.R.N. for Otilia Apodaca/luzma TD: 02/09/2017 19:28 JOB #: [id number] CONSULTATION REPORT Page 1 of 1 X Alexandria Puri EXTRUDER OPERATOR HELPER X CONSULTATION REPORT
--- NOTE | ~2017-02-03 | CR72 ---
[facility] A Service of [facility] RADIOLOGY TEXT RESULTS PATIENT: JOSUE RODRÍGUEZ LOCATION: [facility] : 55 UNIT #: [id number] AGE: [address]: Morenita Caballero MD SEX: M ORDER DR: [id number] [facility] [address] [facility]. [place], [place] [address] [id number] I MR#: [id number] Acc #: [id number] NAME: JOSUE RODRÍGUEZ : 1955 SEX: M STUDY DATE/TIME: 02/06/2017 7:12 UNIT: [facility] ROOM: [facility] STUDY DESCRIPTION: CR Chest Single View Portable Attending Physician: Morenita Caballero M.D. Ordering Physician: Morenita Caballero M.D. Primary Care Physician: Primary Care Physician No MEDICAL IMAGING REPORT This report is preliminary unless electronic signature is present EXAM Frontal chest, 02/06/2017 INDICATION 61-year-old male with shortness of air, worsening symptoms. Non-ST elevation myocardial infarct with chest pain. Symptoms began this morning. TECHNIQUE Frontal chest COMPARISON 02/05/2017 FINDINGS The heart is enlarged. There is vascular congestion and interstitial edema. There may be trace amount of pleural fluid bilaterally. No pneumothorax. Lung volumes are low. IMPRESSION Cardiomegaly with volume overload. There may be a trace amount pleural fluid bilaterally. Dictated by... Reji Woodward M.D. THIS IS AN ELECTRONICALLY VERIFIED REPORT Reji Woodward M.D. at 02/06/2017 1:44 PM Perry TD: 02/06/2017 11:06 JOB #: [id number] MEDICAL IMAGING REPORT [facility] A Service [facility] RADIOLOGY TEXT RESULTS PATIENT: JOSUE RODRÍGUEZ LOCATION: [address] : 55 UNIT #: [id number] AGE: [address]: Morenita Caballero MD SEX: M ORDER DR: Page 1 of 1 COPY
--- NOTE | ~2017-02-03 | FU ---
[facility] Nutrition Therapy DATE: 02/14/17 Patient: JOSUE RODRÍGUEZ Physician: ATTPRE Address: [address] [place] [address] Room/Bed: [address], Zip: [place] [address] Admit Date: 02/03/17 Date of : 55 Height: 5 11 Weight: 229 104 NUTRITION MONITORING/FOLLOW-UP: Reason: ENTERAL NUTRITION RECOMMENDATION CHANGED- PT RECEIVING PROPOFOL Labs: K+ 3.3 Cl- 114 Gluc 142 BUN 58 Creat 1.8 Accuchecks 134-139 GFR 46.1 Meds: Propofol @ 23.9 mL/hr, sodium bicarbonate, bumex, pepcid, phenergan, novolog, lipitor, versed, MVI + minerals Assessment: Chart reviewed, events noted. See change in enteral nutrition recommendations, as the pt is now receiving propofol. Recommendations: 1. While the pt is receiving propofol, decrease Jevity 1.5 to 35 mL/hr + 30 mL Prostat BID to provide: 2091 kcals/ 84 grams protein/ 638 mL free H20 2. When propofol is discontinued, discontinue Prostat and increase Jevity 1.5 to 55 mL/hr to provide: 1980 kcals/ 84 grams protein/ [address] will continue to follow hospital course per protocol. Respectfully, JANELLE STEVENS RD, LD [employer] [facility] [place] [facility] cc: client file
--- NOTE | ~2017-02-03 | OR ---
Unit #: [id number] #: [id number] Patient: JOSUE RODRÍGUEZ [id number] [place], [place] [address] [id number] I MR#: [id number] NAME: JOSUE RODRÍGUEZ ROOM: [facility] Date of Procedure: 02/13/2017 Admission Date: 02/03/2017 Surgeon: Erik Brown M.D. : 1955 Attending Physician: Morenita Caballero M.D. Primary Care Physician: Primary Care Physician No OPERATIVE REPORT PROCEDURE PERFORMED Temporary transvenous pacemaker insertion. INDICATION FOR PROCEDURE Sinus arrest. DESCRIPTION OF PROCEDURE Under aseptic precautions and local anesthesia, the right subclavian vein was punctured and a 6-Tamazight Hemaquet sheath was placed over a J-tipped guidewire. A 5-Tamazight bipolar catheter was then advanced under fluoroscopic vision and its tip placed in the right ventricular apex. Excellent pacing thresholds were obtained, Hemaquet sheath and the pacemaker was sutured in place. No complications were encountered. PACEMAKER SETTINGS Heart rate 60, mod demand, output 5 milliamps. FINAL IMPRESSION Successful insertion of temporary transvenous pacemaker via the right subclavian vein. Dictated by... Otilia Foley/luzma TD: 02/14/2017 11:19 JOB #: [id number] CC: Morenita Caballero M.D. OPERATIVE REPORT Page 1 of 1 X Erik Brown MD X PROCEDURE OPERATIVE NOTE
--- NOTE | ~2017-02-03 | DS ---
Unit #: [id number] #: [id number] Patient: JOSUE RODRÍGUEZ [id number] [address] [address] [id number] I MR#: [id number] NAME: JOSUE RODRÍGUEZ ROOM: 548 Age: 61 Sex: M Admission Date: 02/03/2017 : 1955 Discharge Date: 03/04/2017 Attending Physician: Morenita Caballero M.D. Primary Care Physician: No Primary Care Physician DISCHARGE SUMMARY ADDENDUM HOSPITAL COURSE The patient was not discharged as anticipated on 03/01/2017 due to awaiting bed certification for a bed at [facility]. Today this bed has been approved. [facility] DISCHARGE MEDICATIONS No change. DISCHARGE DIAGNOSES No change. PHYSICAL EXAMINATION VITALS: Temperature 99.5, heart rate 82, respiratory rate 19, blood pressure 127/76. GENERAL: This is an awake and alert 61-year-old male resting in bed, in no acute distress. HEART: S1 and S2. Regular rate and rhythm. No significant murmurs, rubs or gallops. LUNGS: Clear. Nonlabored respirations. ABDOMEN: Soft, nontender and nondistended. EXTREMITIES: No pedal edema. Pulses are palpable. No cyanosis. DIAGNOSTIC DATA LABORATORY: Sodium 135, potassium 3.7, chloride 99, BUN 42, creatinine 1.5, glucose 92, PT 30.8, INR 2.8, hemoglobin 11.3, hematocrit 34.3, white blood cell count 10.6, platelets 252. DISCHARGE INSTRUCTIONS 1. [facility]. 2. Daily PT/INR. 3. Hold Coumadin for INR greater than 3. 4. Follow up with Dr. Caballero on 04/09/2017 at 1 p.m. 5. Medications per medication reconciliation sheet. Dictated by... Tamela Amin APRN for Otilia Person TD: 03/04/2017 15:40 JOB #: [id number] Unit #: [id number] #: [id number] Patient: JOSUE RODRÍGUEZ DISCHARGE SUMMARY Page 1 of 1 X X DISCHARGE SUMMARY
--- NOTE | ~2017-02-03 | CR7 ---
[facility] A Service of [facility] RADIOLOGY TEXT RESULTS PATIENT: JOSUE RODRÍGUEZ LOCATION: [facility] [id number] : 55 UNIT #: [id number] AGE: [address]: Morenita Caballero MD SEX: M ORDER DR: [id number] [place], [place] [address] [id number] I MR#: [id number] Acc #: [id number] NAME: JOSUE RODRÍGUEZ : 1955 SEX: M STUDY DATE/TIME: 02/20/2017 14:36 UNIT: [facility] ROOM: [facility] STUDY DESCRIPTION: CR Abdomen Single AP View Attending Physician: Morenita Caballero M.D. Ordering Physician: Morenita Caballero M.D. Primary Care Physician: No Primary Care Physician MEDICAL IMAGING REPORT This report is preliminary unless electronic signature is present EXAM Supine abdomen, one view, 02/20/2017, at 14:36. CLINICAL HISTORY Dobbhoff tube insertion. FINDINGS Distal weight and tip of a feeding tube is seen in the proximal to mid-stomach. Dictated by... Caesar Barroso M.D. THIS IS AN ELECTRONICALLY VERIFIED REPORT Caesar Barroso M.D. at 03/01/2017 4:58 PM JEANNE/seble TD: 02/20/2017 22:53 JOB #: [id number] MEDICAL IMAGING REPORT Page 1 of 1 COPY
--- NOTE | ~2017-02-03 | EKG ---
PATIENT: JOSUE RODRÍGUEZ UNIT #: [id number] Ventricular Rate: 82 BPM Atrial Rate: 81 BPM QRS Duration: 106 ms Q-T Interval: 458 ms QTC Calculation(Bezet): 535 ms Calculated R [place]: 52 degrees Calculated T [place]: 136 degrees Diagnosis Line: Atrial fibrillation Diagnosis Line: Left ventricular hypertrophy Diagnosis Line: ST and T wave abnormality, consider inferolateral Diagnosis Line: ischemia or digitalis effect Diagnosis Line: Prolonged QT Diagnosis Line: Abnormal ECG Diagnosis Line: When compared with ECG of 08-FEB-2017 13:33, Diagnosis Line: (unconfirmed) Diagnosis Line: No significant change was found Diagnosis Line: Confirmed by ANTOINETTE BOWIE MD ([id number]) on 02/13/2017 Diagnosis Line: 7:33:54 AM INTERPRETING MD: JAMIR TEAGUE
--- NOTE | ~2017-02-03 | CR72 ---
[facility] A Service of [facility] RADIOLOGY TEXT RESULTS PATIENT: JOSUE RODRÍGUEZ LOCATION: [facility] [id number] : 55 UNIT #: [id number] AGE: [address]: Morenita Caballero MD SEX: M ORDER DR: [id number] [facility] [address] [facility]. [place], [place] [address] [id number] I MR#: [id number] Acc #: [id number] NAME: JOSUE RODRÍGUEZ : 1955 SEX: M STUDY DATE/TIME: 02/20/2017 14:29 UNIT: [facility] ROOM: [facility] STUDY DESCRIPTION: CR Chest Single View Portable Attending Physician: Morenita Caballero M.D. Ordering Physician: Morenita Caballero M.D. Primary Care Physician: Primary Care Physician No MEDICAL IMAGING REPORT This report is preliminary unless electronic signature is present EXAM Portable chest 02/20/2017 at 14:29 p.m. COMPARISON 02/20/2017 at 3:05 a.m. CLINICAL HISTORY Dobbhoff tube insertion. FINDINGS There is a catheter in the mid chest with its distal tip just below the level of the juanito. It does not appear to be in the airway. Bilateral interstitial infiltrates are seen and are improved when compared to the earlier exam of 02/20. There is no new infiltrate or pneumothorax. There is a right subclavian central venous line present and the distal tip is near the RV apex and may represent a transvenous electrode pacemaker lead. Dictated by... Caesar Barroso M.D. THIS IS AN ELECTRONICALLY VERIFIED REPORT Caesar Barroso M.D. at 03/01/2017 4:57 PM TEV/psc TD: 02/20/2017 22:40 JOB #: [id number] MEDICAL IMAGING REPORT Page 1 of 1 COPY
--- NOTE | ~2017-02-03 | EKG ---
PATIENT: JOSUE RODRÍGUEZ UNIT #: [id number] Ventricular Rate: 72 BPM Atrial Rate: 81 BPM QRS Duration: 90 ms Q-T Interval: 484 ms QTC Calculation(Bezet): 529 ms Calculated R [place]: 70 degrees Calculated T [place]: -7 degrees Diagnosis Line: Atrial fibrillation Diagnosis Line: Left ventricular hypertrophy Diagnosis Line: ST and T wave abnormality, consider inferolateral Diagnosis Line: ischemia or digitalis effect Diagnosis Line: Prolonged QT Diagnosis Line: Abnormal ECG Diagnosis Line: When compared with ECG of 03-FEB-2017 15:32, Diagnosis Line: ST no longer depressed in Lateral leads Diagnosis Line: Confirmed by ORQUIDEA PAULSON MD ([id number]) on Diagnosis Line: 02/04/2017 8:26:34 PM INTERPRETING MD: CARLIN
--- NOTE | ~2017-02-03 | CR72 ---
[facility] A Service of [facility] RADIOLOGY TEXT RESULTS PATIENT: JOSUE RODRÍGUEZ LOCATION: [facility] : 55 UNIT #: [id number] AGE: [address]: Morenita Caballero MD SEX: M ORDER DR: [id number] [place], [place] [address] [id number] I MR#: [id number] Acc #: [id number] NAME: JOSUE RODRÍGUEZ : 1955 SEX: M STUDY DATE/TIME: 02/12/2017 5:39 UNIT: [facility] ROOM: [facility] STUDY DESCRIPTION: CR Chest Single View Portable Attending Physician: Morenita Caballero M.D. Ordering Physician: Matias Michaud M.D. Primary Care Physician: No Primary Care Physician MEDICAL IMAGING REPORT This report is preliminary unless electronic signature is present EXAM AP portable chest. DATE 02/12/2017 HISTORY 61-year-old male respiratory failure with atrial fibrillation and hypertension, symptoms began 9 days ago. Additional history of smoking, coronary artery disease, and hypertension. COMPARISON AP portable chest, 02/11/2017. FINDINGS ET tube, Dobbhoff tube, and right IJ central line are stable. Moderate cardiomediastinal enlargement, stable. Retrocardiac left basilar consolidation appears improved with better delineation of the diaphragm margin. More ill-defined scattered infiltrates in both lungs otherwise appear unchanged. No visible pneumothorax. IMPRESSION 1. The retrocardiac left lower lobe consolidation appears improved. Scattered airspace disease changes elsewhere within both lungs are stable. 2. Supporting lines and tubes unchanged. 3. Stable cardiomegaly. Dictated by... Torie Jackson M.D. [facility] A Service of [facility] RADIOLOGY TEXT RESULTS PATIENT: JOSUE RODRÍUGEZ [facility] : 55 UNIT #: [id number] AGE: [address]: Morenita Caballero MD SEX: M ORDER DR: THIS IS AN ELECTRONICALLY VERIFIED REPORT Torie Jackson M.D. at 02/12/2017 9:52 PM OUSMANE/efrain TD: 02/12/2017 10:10 JOB #: [id number] MEDICAL IMAGING REPORT Page 1 of 1 COPY
--- NOTE | ~2017-02-03 | CR7 ---
[facility] A Service of [facility] RADIOLOGY TEXT RESULTS PATIENT: JOSUE RODRÍGUEZ LOCATION: [address] : [birth year] UNIT #: [id number] AGE: [address]: Morenita Caballero MD SEX: M ORDER DR: [id number] [facility] [address] [facility]. [place], [place] [address] [id number] I MR#: [id number] Acc #: [id number] NAME: JOSUE RODRÍGUEZ : 1955 SEX: M STUDY DATE/TIME: 02/21/2017 23:31 UNIT: [facility] ROOM: [facility] STUDY DESCRIPTION: CR Abdomen Single AP View Attending Physician: Morenita Caballero M.D. Ordering Physician: Morenita Caballero M.D. Primary Care Physician: No Primary Care Physician MEDICAL IMAGING REPORT This report is preliminary unless electronic signature is present EXAM Portable abdomen for Dobbhoff tube placement, 02/21/2017. HISTORY Dobbhoff tube placement. TECHNIQUE AP portable radiograph of the upper abdomen. FINDINGS Dobbhoff tube tip is in good position in the mid to distal stomach at 2331 hours on 02/21/2017. Dictated by... Tristin Morris M.D. THIS IS AN ELECTRONICALLY VERIFIED REPORT Tristin Morris M.D. at 02/22/2017 5:05 PM GIRISHW/efrain TD: 02/22/2017 09:22 JOB #: [id number] MEDICAL IMAGING REPORT Page 1 of 1 COPY
--- NOTE | ~2017-02-03 | CO ---
Unit #: [id number] #: [id number] Patient: JOSUE RODRÍGUEZ [id number] [address] [address] [id number] I MR#: [id number] NAME: JOSUE RODRÍGUEZ ROOM: [facility]3 Age: 61 Sex: M Admission Date: 02/03/2017 : 1955 Attending Physician: Morenita Caballero M.D. Primary Care Physician: Primary Care Physician No Consultation Date: 02/17/2017 CONSULTATION REPORT REASON FOR CONSULTATION Followup. DISCUSSION Mr. Neves is a 61-year-old male, seen in room 18, CCU-3 on 02/17/2017. The patient dressed in hospital attire, lying in a propped up position. The patient still intubated, but more alert, awake as the patient's propofol was discontinued this morning and currently on Precedex 0.3 mg. The patient is not showing any agitation at this time, but still confused, unable to give any reliable information. Information obtained from the nursing staff and family who are at the bedside. The patient's vital signs; pulse 100, respirations 27, blood pressure 157/80, oxygen saturation 97%. REVIEW OF SYSTEMS Complete review of system is unremarkable except as mentioned above. MENTAL STATUS EXAMINATION General appearance; the patient dressed in hospital attire, still intubated, but more alert, awake, able to follow commands, and no agitation. Attention span and concentration, poor. Speech, unable to assess. Orientation, unable to assess. Mood and affect, flat. Thought process, unable to assess. Thought content, unable to assess. Recent and remote memory, unable to assess. Language, unable to assess. Fund of knowledge, unable to assess. Insight and judgment, impaired. DIAGNOSIS Psychiatric: Delirium, F05. ASSESSMENT/PLAN 1. Supportive psychotherapy and psychoeducation provided to the patient and family, but the patient is unable to comprehend much at this time. 2. Advised to continue with current treatment. If needed, we will consider medications such as Seroquel or Geodon or haloperidol to control agitation. Once the patient is extubated, we will continue to follow and make necessary adjustment of medication. Please feel free to call if any questions, telephone #[phone]. Dictated by... Otilia Philip/luzma Unit #: [id number] #: [id number] Patient: JOSUE RODRÍGUEZ TD: 02/18/2017 06:08 JOB #: [id number] CONSULTATION REPORT Page 1 of 1 X Ismael Navarro MD X CONSULTATION REPORT
--- NOTE | ~2017-02-03 | CT71 ---
[facility] A Service of [facility] RADIOLOGY TEXT RESULTS PATIENT: JOSUE RODRÍGUEZ LOCATION: [place] [address] : 55 UNIT #: [id number] AGE: [address]: Morenita Caballero MD SEX: M ORDER DR: [id number] [facility] [address] [facility]. [place], [place] [address] [id number] I MR#: [id number] Acc #: [id number] NAME: JOSUE RODRÍGUEZ : 1955 SEX: M STUDY DATE/TIME: 02/07/2017 11:45 UNIT: [facility] ROOM: [facility] STUDY DESCRIPTION: CT Head Wo Contrast Attending Physician: Morenita Caballero M.D. Ordering Physician: Bernice Samuel M.D. Primary Care Physician: Primary Care Physician No MEDICAL IMAGING REPORT This report is preliminary unless electronic signature is present EXAM Head CT without contrast HISTORY Confusion beginning this morning. TECHNIQUE Axial images were obtained without contrast. This CT exam was performed with one or more of the following radiation dose reduction techniques: automatic exposure control, adjustment of mA and/or kV according to patient size, and iterative reconstruction. FINDINGS Axial noncontrast images were obtained from the skull base to the vertex. Ventricular size and configuration are normal. There is no evidence of acute infarct or hemorrhage. There are no extra-axial fluid collections. No mass lesion or mass effect is seen. There are no skull fractures. IMPRESSION Normal noncontrast head CT. STAT * RESULT Dictated by... Marlon Rosas M.D. THIS IS AN ELECTRONICALLY VERIFIED REPORT Marlon Rosas M.D. at 02/07/2017 3:38 PM Sravanthi TD: 02/07/2017 12:10 JOB #: [id number] [facility] A Service of [facility] RADIOLOGY TEXT RESULTS PATIENT: JOSUE RODRÍGUEZ LOCATION: [address] : 55 UNIT #: [id number] AGE: [address]: Morenita Caballero MD SEX: M ORDER DR: MEDICAL IMAGING REPORT Page 1 of 1 COPY
--- NOTE | ~2017-02-03 | CO ---
Unit #: [id number] #: [id number] Patient: JOSUE RODRÍGUEZ [id number] [address] [address] [id number] I MR#: [id number] NAME: JOSUE RODRÍGUEZ ROOM: [facility]IC3 Age: 61 Sex: M Admission Date: 02/03/2017 : 1955 Attending Physician: Morenita Caballero M.D. Primary Care Physician: Primary Care Physician No Consultation Date: 02/08/2017 CONSULTATION REPORT REASON FOR CONSULTATION Followup. DISCUSSION Mr. Josue Rodríguez is a 61-year-old male, seen in CCU-2, bed 8 on 02/08/2017. The patient still requiring bilateral arms restraints, agitated, unable to give coherent history, confused, mood lability. The patient's information obtained from the physician on the unit as well as from the nursing staff and chart reviewed. The patient's vital signs; temperature 97.5, pulse 82, respirations 24, blood pressure 121/74, oxygen saturations 99. The patient needing restraints for safety. REVIEW OF SYSTEMS Complete review of systems is unremarkable. MENTAL STATUS EXAMINATION General appearance, the patient dressed in hospital attire, continues to be agitated. Attention span and concentration, unable to assess. Speech, unable to assess. Orientation, unable to assess. Mood and affect, labile. Thought process, thought content, recent and remote memory, language, fund of knowledge, insight and judgment, impaired. DIAGNOSES Psychiatric: Delirium, F05. ASSESSMENT AND PLAN Recommending at this time to continue with current medication. Recommending at this time to cut back on the dosage of Ativan as the patient received more than 15 mg of Ativan yesterday, which may be causing disinhibition and also consider adding Haldol on a scheduled basis. If needed, please feel free to call if any questions telephone #[phone]. Dictated by... Ismael Navarro M.D. PAUL/luzma TD: 02/09/2017 13:55 JOB #: [id number] Unit #: [id number] #: [id number] Patient: JOSUE RODRÍGUEZ CONSULTATION REPORT Page 1 of 1 X Ismael Navarro MD CONSULTATION REPORT
--- NOTE | ~2017-02-03 | CO ---
Unit #: [id number] #: [id number] Patient: JOSUE RODRÍGUEZ [id number] [facility]. [place], [place] [address] [id number] I MR#: [id number] NAME: JOSUE RODRÍGUEZ ROOM: [facility]3 Age: 61 Sex: M Admission Date: 02/03/2017 : 1955 Attending Physician: Morenita Caabllero M.D. Primary Care Physician: Milli Primary Care Physician Consultation Date: 02/14/2017 CONSULTATION REPORT REASON FOR CONSULT Renal insufficiency. Thank you very much for asking me to see this patient in consultation. HISTORY OF PRESENT ILLNESS Mr. Rodríguez is a 61-year-old -[place] male who presented on February 03, 2017 with complaints of chest pain, subsequently found to have an acute ID, underwent a cardiac catheterization, (1) with stents on the . Subsequently, complicated hospital stay included hematuria seen by . He subsequently became combative, really confused, apparently had a very small CVA although neurology feels that is not contributing to his confusion. Subsequently, he was intubated and was diagnosed with pneumonia as well. Developed atrial fibrillation as well. Patient upon presentation noted to have creatinine of 1.2. It got as low as 1.1 and in the last few days, it has been ranging 1.3 to 1.5. However, this morning urine output has significantly decreased with an increased creatinine of 1.8. Because of this, I was asked to see the patient. Patient is decreased response currently on vent, has a feeding tube in place currently, also on a Cardizem drip. He was started for possible meningitis although apparently did not do a LP due to his Brilinta. He was started on Zovirax and vancomycin with a vancomycin "trough" 55.6 today. His vancomycin subsequently has been discontinued. Again, he is decreased response on the vent. PAST MEDICAL HISTORY Apparently no significant past medical history best we can tell. No family is at bedside but here in the hospital, acute ID status post (2) /stents. History of CVA. History of atrial fibrillation. History of respiratory failure/pneumonia. SOCIAL HISTORY He is a positive smoker in the past. Unknown if any alcohol. ALLERGIES No known drug allergies. MEDICATIONS His medicines currently include: 1. Diltiazem. 2. Protonix. 3. Zovirax. 4. Doxycycline. 5. Brilinta. Unit #: [id number] #: [id number] Patient: JOSUE RODRÍGUEZ 6. Aspirin. 7. Hydralazine. 8. Norvasc. 9. Zosyn. 10. Flomax. 11. Lipitor. 12. Vancomycin, which was discontinued. REVIEW OF SYSTEMS As mentioned in HPI, otherwise unable to obtain. PHYSICAL EXAMINATION GENERAL: Again, decreased responsiveness, sedated. VITAL SIGNS: T-max 98.9, pulse 79-108, blood pressure 102 to 182 over 50s to 90s. He has had 4541 in and out 955 over the last one week. He has had approximately 15 L more in than out. HEENT: Normocephalic and atraumatic. Pupils appear to be reactive to light. Again, feeding is in place. He is orally intubated. NECK: Supple. No adenopathy. CARDIAC: He is irregular and tachycardic. His lungs have some bilateral rhonchi. ABDOMEN: Distended. Bowel sounds are positive. Positive body edema. Some mild scrotal edema. EXTREMITIES: He has positive lower extremity edema. NEUROLOGIC: Again, decreased responsiveness. GENITOURINARY: Ospina catheter is in place. SKIN: No acute rashes. DIAGNOSTIC STUDIES LABORATORY: Laboratory data this morning showed a sodium of 143, potassium 3.3, chloride 114, bicarbonate 19, BUN 58, creatinine 1.8, glucose 142. Hemoglobin 9.6, white count 12,100, platelets 365,000. His UA upon the showed 2+ protein, 100-200 RBCs. Negative urine culture. His CVP this morning was 30. Lactic acid 1.3. vancomycin level is 55. BNP is 412. Magnesium 2.8. Calcium 8.4. ABG showed a pH of 7.399, pCO2 of 31, pO2 of 63 on 60%. IMAGING: Chest x-ray last chest showed bilateral infiltrates. ASSESSMENT AND PLAN Acute kidney injury: This patient appears to have some acute renal failure, possibly on some chronic kidney disease stage 3 with creatinine of 1.2 upon admission, now up to 1.8. He certainly could be acute interstitial nephritis versus is kind of late for contrast induced since it was over a week ago but I guess theoretically he could have some injury from that versus acute tubular necrosis versus vancomycin and Zovirax versus other. He is getting a CT scan of his abdomen and pelvis today without contrast. Will check a urinalysis culture and sensitivity again, check urine eosinophils. Will reduce his Zovirax to 24 hours. He does appear to have increased third space fluid and with increased CVP and 15 L over the last week, will go ahead and give him a large dose of Bumex. Start him on a Bumex drip at 1 mg/hr. Will also discontinue his Protonix and switch him over to Pepcid, certainly with the risk of acute interstitial nephritis with this as well as will replace just a couple doses of potassium and start him on some feeding tube, bicarbonate. Will check in the morning. Unit #: [id number] #: [id number] Patient: JOSUE RODRÍGUEZ Dictated by.Otilia Barnett/rosalie TD: 02/14/2017 10:59 JOB #: [id number] CONSULTATION REPORT Page 1 of 1 X Radha Perdue MD X CONSULTATION REPORT
--- NOTE | ~2017-02-03 | FU ---
[facility] Nutrition Therapy DATE: 02/12/17 Patient: JOSUE RODRÍGUEZ Physician: ATTPRE Address: [address] [place] [address] Room/Bed: [address], Zip: [place] [address] Admit Date: 02/03/17 Date of : 55 Height: 5 11 Weight: 210 95.5 NUTRITION MONITORING/FOLLOW-UP: Reason: Enteral nutrition follow-up Admitting dx: 61 y/o male admitted with acute NSTEMI, s/p 3 stents Anthropometrics: Ht: 71", admission wt: 86.1 kg, current wt: 95.5 kg, BMI: 27 (overweight; based on admission wt) Labs: glucose 136, POC 169, BUN 34, creat 1.5, GFR 57.4, lytes WNL Meds: MVI + thiamine, PPI, prn sedation with fentanyl/versed, precedex, SSI per accucheks GI: BM 02/11, minimal GRV Skin: no significant issues, 1+ edema BUE noted Estimated Nutrition Needs: 0750-6992 kcals/day (20-25 kcals/kg admission wt) ~85 g protein/day (1.0 g/kg admission wt) Fluids consistent with kcal needs or per MD Assessment: Chart reviewed, events noted. Patient intubated, on precedex with additional prn sedation ordered. RN unavailable to round today. Pt remains on CIWA protocol. Has enteral feeds running via DHT with Jevity 1.5 @ goal rate of 55 ml/hr with minimal GRV noted. See nutrition dx and goals below, RD will continue to follow. Dx: Inadequate energy intake r/t nutrition not yet initiated AEB NPO x 2 days, need for EN - RESOLVED New nutrition dx: Inadequate oral intake r/t vent dependence AEB need for EN. Intervention: Continue current EN regimen Monitoring, Evaluation and Goals: 1. EN consistent with estimated nutritional needs - MET (EN @ goal rate) 2. Glucose, lytes WNL - IN PROGRESS (lytes WNL, glucose mildly elevated) New goal: EN to provide > 80% goal volume x 24 hours. Monitor: per protocol, criteria to determine if above goals met [facility] Nutrition Therapy DATE: 02/12/17 Patient: JOSUE RODRÍGUEZ Physician: ATTPRE Address: [address] [place] [address] Room/Bed: [address], Zip: [place] [address] Admit Date: 02/03/17 Date of : [birth year] Height: 5 11 Weight: 210 95.5 Recommendations: 1. Continue enteral nutrition via DHT with Jevity 1.5 @ goal rate of 55 ml/hr to meet estimated nutritional needs. 2. If pt is extubated please keep DHT in place until he is evaluated by [employer]. Advance to PO diet per [employer] recs only. Status: Moderate nutrition risk Respectfully, Juli Pérez RD, LD [facility] cc: client file
--- NOTE | ~2017-02-03 | EKG ---
PATIENT: JOSUE RODRÍGUEZ UNIT #: [id number] Ventricular Rate: 97 BPM Atrial Rate: 108 BPM QRS Duration: 92 ms Q-T Interval: 306 ms QTC Calculation(Bezet): 388 ms P [place]: 62 degrees Calculated R [place]: 67 degrees Calculated T [place]: -142 degrees Diagnosis Line: Atrial fibrillation Diagnosis Line: Left ventricular hypertrophy with repolarization Diagnosis Line: abnormality Diagnosis Line: Abnormal ECG Diagnosis Line: When compared with ECG of 13-FEB-2017 18:28, Diagnosis Line: T wave inversion more evident in Lateral leads Diagnosis Line: QT has shortened Diagnosis Line: Confirmed by ANTOINETTE BOWIE MD ([id number]) on 02/19/2017 Diagnosis Line: 6:53:33 AM INTERPRETING MD: JAMIR TEAGUE
--- NOTE | ~2017-02-03 | CO ---
Unit #: [id number] #: [id number] Patient: JOSUE RODRÍGUEZ [id number] [address] [place], [place] [address] [id number] MR#: [id number] NAME: JOSUE RODRÍGUEZ ROOM: 548 Age: 61 Sex: M Admission Date: 02/03/2017 : 1955 Attending Physician: Morenita Caballero M.D. Consultation Date: 03/01/2017 CONSULTATION REPORT REASON FOR CONSULTATION Followup. DISCUSSION Mr. Josue Rodríguez is a 61-year-old male, seen on 03/01/2017. The patient compliant with medication. Started on Zyprexa recently. No side effects from medication. Slept good. Able to take his medication this morning. The patient's vital signs; temperature 98.0, pulse 93, respirations 16, blood pressure 125/69, oxygen saturation 100%. The patient was able to answer questions coherently, but still reported feeling weak. Denied any thoughts of harming self or others. REVIEW OF SYSTEMS Complete review of systems unremarkable. MENTAL STATUS EXAMINATION General appearance, the patient dressed casually, sitting in a recliner. Attention span and concentration, fair. Speech, regular rate, slow in volume. Oriented in time, place, and person. Mood and affect, sad and dysphoric. Thought process, coherent. Thought content, the patient denied any thoughts of harming self or others or any hallucination. Recent and remote memory, fair. Language, intact. Fund of knowledge, fair. Insight and judgment, fair to slightly impaired. DIAGNOSES Psychiatric: Psychosis, not otherwise specified, F29.0; mood disorder, not otherwise specified, F32.9; history of delirium, F05, resolved. ASSESSMENT/PLAN 1. Supportive psychotherapy and psychoeducation provided to the patient. 2. Educated about benefits and side effects of medication and course and prognosis of illness. 3. Advised to continue with current combination of medication. If needed, consider further adjustment of medication. The patient is currently on Zyprexa Zydis 10 mg at bedtime, Prozac 20 mg daily. Dictated by... Ismael Navarro M.D. PAUL/luzma TD: 03/02/2017 18:28 JOB #: [id number] Unit #: [id number] #: [id number] Patient: JOSUE RODRÍGUEZ CONSULTATION REPORT Page 1 of 1 X Ismael Navarro MD CONSULTATION REPORT
--- NOTE | ~2017-02-03 | CR72 ---
[facility] A Service of [facility] RADIOLOGY TEXT RESULTS PATIENT: JOSUE RODRÍGUEZ LOCATION: [facility] : 55 UNIT #: [id number] AGE: [address]: Morenita Caballero MD SEX: M ORDER DR: [id number] [facility] [address] [facility]. [place], [place] [address] [id number] I MR#: [id number] Acc #: [id number] NAME: JOSUE RODRÍGUEZ : 1955 SEX: M STUDY DATE/TIME: 02/08/2017 19:00 UNIT: [facility] ROOM: [facility] STUDY DESCRIPTION: CR Chest Single View Portable Attending Physician: Morenita Caballero M.D. Ordering Physician: Morenita Caballero M.D. Primary Care Physician: No Primary Care Physician MEDICAL IMAGING REPORT This report is preliminary unless electronic signature is present EXAM Portable chest x-ray 02/08/2017 HISTORY Central line placement. TECHNIQUE AP radiograph chest presented. COMPARISON 02/08/2017, 13:38 hours. FINDINGS Right internal jugular approach central venous catheter terminates in superior vena cava. The enteric tube and endotracheal tube unchanged. Stable cardiac enlargement. Lung volumes low. No change in appearance of pulmonary parenchyma. Mild interstitial and central peribronchial prominence. Some patchy infrahilar densities bilaterally. The appearance is somewhat nonspecific and could be a reflection of mild pulmonary edema or mild pneumonitis/bronchitis. There is no dense airspace disease. No definite pleural effusion and no pneumothorax. No suspicious nodule. Dictated by... Eduardo Rodriguez M.D. THIS IS AN ELECTRONICALLY VERIFIED REPORT Eduardo Rodriguez M.D. at 02/09/2017 2:37 PM STAR/estephania TD: 02/09/2017 09:58 JOB #: [id number] [facility] A Service of [facility] RADIOLOGY TEXT RESULTS PATIENT: JOSUE RODRÍGUEZ LOCATION: [facility] : 55 UNIT #: [id number] AGE: [address]: Morenita Caballero MD SEX: M ORDER DR: MEDICAL IMAGING REPORT Page 1 of 1 COPY
--- NOTE | ~2017-02-03 | CR72 ---
[facility] A Service of [facility] RADIOLOGY TEXT RESULTS PATIENT: JOSUE RODRÍGUEZ LOCATION: [address] : [birth year] UNIT #: [id number] AGE: [address]: Morenita Caballero MD SEX: M ORDER DR: [id number] [facility] [address] [facility]. [place], [place] [address] [id number] I MR#: [id number] Acc #: [id number] NAME: JOSUE RODRÍGUEZ : 1955 SEX: M STUDY DATE/TIME: 02/07/2017 09:59 UNIT: [facility] ROOM: [facility] STUDY DESCRIPTION: CR Chest Single View Portable Attending Physician: Morenita Caballero M.D. Ordering Physician: Physician Non-Staff Primary Care Physician: Primary Care Physician No MEDICAL IMAGING REPORT This report is preliminary unless electronic signature is present EXAM Chest portable, 02/07/2017 09:59 hours HISTORY Shortness of air with chest pain, recent RI. Symptoms began 02/03/2017. COMPARISON 02/06/2017 FINDINGS Portable upright chest is a lordotic projection. There is stable cardiomegaly when allowing for this positioning. Pulmonary vascularity is decreased. There is no residual edema. Stable elevation of the right hemidiaphragm. IMPRESSION Film is limited by lordotic positioning. There is stable cardiomegaly. There is decrease in pulmonary venous distension and no residual interstitial change. No effusions. Stable elevation of the right hemidiaphragm. Dictated by... Carlene Gallegos M.D. THIS IS AN ELECTRONICALLY VERIFIED REPORT Carlene Gallegos M.D. at 02/08/2017 9:24 AM Zach TD: 02/07/2017 10:42 JOB #: [id number] MEDICAL IMAGING REPORT [facility] A Service of [facility] RADIOLOGY TEXT RESULTS PATIENT: OJSUE RODRÍGUEZ LOCATION: [address] : [birth year] UNIT #: [id number] AGE: [address]: Morenita Caballero MD SEX: M ORDER DR: Page 1 of 1 COPY
--- NOTE | ~2017-02-03 | CT71 ---
[facility] A Service [facility] RADIOLOGY TEXT RESULTS PATIENT: JOSUE RODRÍGUEZ [facility] 55 UNIT #: [id number] AGE: [address]: Morenita Caballero MD SEX: M ORDER DR: [id number] [facility] [address] [facility]. [place], [place] [address] [id number] I MR#: [id number] Acc #: [id number] NAME: JOSUE RODRÍGUEZ : 1955 SEX: M STUDY DATE/TIME: 02/09/2017 20:44 UNIT: [facility] ROOM: [facility] STUDY DESCRIPTION: CT Head Wo Contrast Attending Physician: Morenita Caballero M.D. Ordering Physician: Alexandria Puri A.P.R.N. Primary Care Physician: No Primary Care Physician MEDICAL IMAGING REPORT This report is preliminary unless electronic signature is present EXAM Head CT, no contrast; 02/09/2017. INDICATIONS 61-year-old male with sudden onset left-sided weakness today. TECHNIQUE Noncontrast CT brain was performed. This CT exam was performed with one or more of the following radiation dose reduction techniques: automatic exposure control, adjustment of mA and/or kV according to patient size, and iterative reconstruction. COMPARISON 02/07/[address] BRAIN: There is motion degradation. Images were repeated. This was the best study possible. Sulci and ventricles unremarkable. No midline shift. No evidence of acute intracranial hemorrhage. There is no mass, mass effect or edema to suggest acute infarct and no extraaxial fluid collections are identified. Globes are intact. Bones are intact. There is mild ethmoid sinus disease. Incidental basal ganglia calcifications present and physiologic. IMPRESSION 1. No clearly acute intracranial process. No evidence of acute intracranial hemorrhage. 2. Physiologic basal ganglia calcifications. 3. Ethmoid sinus disease. Dictated by... Reji Woodward M.D. [facility] A Service [facility] RADIOLOGY TEXT RESULTS PATIENT: JOSUE RODRÍGUEZ [facility]: [facility] : [facility] UNIT #: [id number] AGE: [address]: Morenita Caballero MD SEX: M ORDER DR: THIS IS AN ELECTRONICALLY VERIFIED REPORT Reji Woodward M.D. at 02/10/2017 2:26 PM Ruma TD: 02/10/2017 14:20 JOB #: [id number] MEDICAL IMAGING REPORT Page 1 of 1 COPY
--- NOTE | ~2017-02-03 | CO ---
Unit #: [id number] #: [id number] Patient: JOSUE RODRÍGUEZ [id number] [address] [address] [id number] I MR#: [id number] NAME: JOSUE RODRÍGUEZ ROOM: [facility] Age: 61 Sex: M Admission Date: 02/03/2017 : 1955 Attending Physician: Morenita Caballero M.D. Primary Care Physician: Primary Care Physician No Consultation Date: 02/20/2017 CONSULTATION REPORT REASON FOR CONSULTATION Followup. DISCUSSION Mr. Neves is a 61-year-old male, seen in room CCU-3, bed 18 on 02/20/2017. The patient dressed in hospital attire, lying comfortably in bed, in a propped up position, receiving BiPAP. The patient was calm, cooperative, and no restrains at this time. Decrease in agitation. The patient however still confused and unable to give any reliable information. Vital signs, pulse 94, respiratory rate 23, blood pressure 160/80, oxygen saturation 92%. REVIEW OF SYSTEMS Complete review of systems unremarkable. MENTAL STATUS EXAMINATION General appearance, the patient dressed in hospital attire, lying comfortably in a propped up position. Attention span and concentration, poor. Speech, slow. Oriented in self. Mood and affect, flat. Thought process and thought content; disorganized. Recent and remote memory, poor. Language, poor. Fund of knowledge, impaired. Insight and judgment, impaired. DIAGNOSES 1. Delirium, F05. 2. Mood disorder, not otherwise specified. 3. Rule out major depressive disorder, recurrent, severe, 33.2. ASSESSMENT AND PLAN Recommending at this time to continue with current treatment in CCU. At this time, the patient was started on haloperidol 2 mg b.i.d. The patient is making progress slowly. If needed, consider further adjustment of medication. Please feel free to call if any questions telephone #[phone]. Dictated by... Otilia Philip/luzma TD: 02/21/2017 18:25 JOB #: [id number] Unit #: [id number] #: [id number] Patient: JOSUE RODRÍGUEZ CONSULTATION REPORT Page 1 of 1 X Ismael Navarro MD CONSULTATION REPORT
--- NOTE | ~2017-02-03 | CR72 ---
[facility] A Service of [facility] RADIOLOGY TEXT RESULTS PATIENT: JOSUE RODRÍGUEZ LOCATION: [facility] : 55 UNIT #: [id number] AGE: [address]: Morenita Caballero MD SEX: M ORDER DR: [id number] [facility] [address] [facility]. [place], [place] [address] [id number] I MR#: [id number] Acc #: [id number] NAME: JOSUE RODRÍGUEZ : 1955 SEX: M STUDY DATE/TIME: 02/18/2017 2:18 UNIT: [facility] ROOM: [facility] STUDY DESCRIPTION: CR Chest Single View Portable Attending Physician: Morenita Caballero M.D. Ordering Physician: Matias Michaud M.D. Primary Care Physician: Primary Care Physician No MEDICAL IMAGING REPORT This report is preliminary unless electronic signature is present EXAM Chest x-ray, 02/18/2017 HISTORY Respiratory failure. Followup cardiopulmonary status. TECHNIQUE AP portable chest x-ray. FINDINGS The patient has been extubated since yesterday. The exam is otherwise unchanged. Ukrx-xb-wweskpos diffuse, predominately interstitial opacity throughout both lungs most likely representing pulmonary edema. Cardiomegaly is stable. No dense airspace consolidation or visible pleural effusion. Right subclavian transvenous pacer lead in the right ventricle. Right arm PICC tip in the low SVC or upper right atrium. Feeding tube extends below the diaphragm. IMPRESSION Stable portable chest radiograph following extubation since yesterday. Dictated by... Tristin Morris M.D. THIS IS AN ELECTRONICALLY VERIFIED REPORT Tristin Morris M.D. at 02/18/2017 6:08 AM JAYESH/mamta TD: 02/18/2017 03:44 JOB #: [id number] [facility] A Service [facility] RADIOLOGY TEXT RESULTS PATIENT: JOSUE RODRÍGUEZ LOCATION: [facility] : 55 UNIT #: [id number] AGE: [address]: Morenita Caballero MD SEX: M ORDER DR: MEDICAL IMAGING REPORT Page 1 of 1 COPY
--- NOTE | ~2017-02-03 | CR72 ---
[facility] A Service of [facility] & [facility] RADIOLOGY TEXT RESULTS PATIENT: JOSUE RODRÍGUEZ LOCATION: [address] : 55 UNIT #: [id number] AGE: [address]: Morenita Caballero MD SEX: M ORDER DR: [id number] [facility] [address] [facility]. [place], [place] [address] [id number] I MR#: [id number] Acc #: [id number] NAME: JOSUE RODRÍGUEZ : 1955 SEX: M STUDY DATE/TIME: 02/19/2017 7:49 UNIT: [facility] ROOM: [facility] STUDY DESCRIPTION: CR Chest Single View Portable Attending Physician: Morenita Caballero M.D. Ordering Physician: Morenita Caballero M.D. Primary Care Physician: Primary Care Physician No MEDICAL IMAGING REPORT This report is preliminary unless electronic signature is present EXAM Portable chest, 02/19 INDICATION Respiratory failure, hypertension, atrial fibrillation today. FINDINGS AP portable chest is compared with 02/18/2017. Cardiomegaly is stable. Right arm PICC at the right atrial level. Diffuse bilateral pulmonary infiltrates have worsened since yesterday and presumably reflect pulmonary edema. No pneumothorax. Dictated by... Marlon Urrutia Jr., M.D. THIS IS AN ELECTRONICALLY VERIFIED REPORT Marlon Urrutia Jr., M.D. at 02/19/2017 5:11 PM NANCY/juan c TD: 02/19/2017 13:41 JOB #: [id number] MEDICAL IMAGING REPORT Page 1 of 1 COPY
--- NOTE | ~2017-02-03 | CR72 ---
[facility] A Service of [facility] & [facility] RADIOLOGY TEXT RESULTS PATIENT: JOSUE RODRÍGUEZ LOCATION: [address] : [birth year] UNIT #: [id number] AGE: [address]: Morenita Caballero MD SEX: M ORDER DR: [id number] [facility] [address] [facility]. [place], [place] [address] [id number] I MR#: [id number] Acc #: [id number] NAME: JOSUE RODRÍGUEZ : 1955 SEX: M STUDY DATE/TIME: 02/07/2017 22:45 UNIT: [facility] ROOM: [facility] STUDY DESCRIPTION: CR Chest Single View Portable Attending Physician: Morenita Caballero M.D. Ordering Physician: Morenita Caballero M.D. Primary Care Physician: Primary Care Physician No MEDICAL IMAGING REPORT This report is preliminary unless electronic signature is present EXAM Chest x-ray, 02/07 at 22:45 INDICATIONS Feeding tube placement. FINDINGS AP portable chest compared with 02/07/2017 at 09:59. Cardiomegaly is stable. Tip of a feeding tube is present in the tmx-lg-rwhge thoracic esophagus. Mild bilateral infiltrates would suggest a mild degree of edema. No pneumothorax. Dictated by... Marlon Urrutia Jr., M.D. THIS IS AN ELECTRONICALLY VERIFIED REPORT Marlon Urrutia Jr., M.D. at 02/08/2017 6:53 AM REZAK/mark TD: 02/07/2017 23:16 JOB #: [id number] MEDICAL IMAGING REPORT Page 1 of 1 COPY
--- NOTE | ~2017-02-03 | CR72 ---
[facility] A Service of [facility] RADIOLOGY TEXT RESULTS PATIENT: JOSUE RODRÍGUEZ LOCATION: [address] : 55 UNIT #: [id number] AGE: [address]: Morenita Caballero MD SEX: M ORDER DR: [id number] [facility] [address] [facility]. [place], [place] [address] [id number] I MR#: [id number] Acc #: [id number] NAME: JOSUE RODRÍGUEZ : 1955 SEX: M STUDY DATE/TIME: 02/11/2017 3:33 UNIT: [facility] ROOM: [facility] STUDY DESCRIPTION: CR Chest Single View Portable Attending Physician: Morenita Caballero M.D. Ordering Physician: Pratik Sears M.D. Primary Care Physician: Primary Care Physician No MEDICAL IMAGING REPORT This report is preliminary unless electronic signature is present EXAM AP portable chest 02/11/2017 HISTORY Respiratory failure. Hypertension. Chest pain. Symptoms began 02/02/2017. Atrial fibrillation. Right lower lobe pneumonia. COMPARISON AP portable chest 02/10/2017. FINDINGS Moderate cardiomegaly. Ill-defined right basilar infiltrate and medial left basilar airspace disease, without significant change. ET tube, Dobbhoff tube, right IJ central line appear stable. No visible pneumothorax. IMPRESSION 1. Retrocardiac left basilar consolidation and ill-defined right basilar infiltrate, without significant change. 2. Supporting lines and tubes appear stable. No visible pneumothorax. Dictated by... Torie Jackson M.D. THIS IS AN ELECTRONICALLY VERIFIED REPORT Torie Jackson M.D. at 02/11/2017 9:59 PM [facility]/shreyas TD: 02/11/2017 11:38 JOB #: [id number] [facility] A Service of [facility] RADIOLOGY TEXT RESULTS PATIENT: JOSUE RODRÍGUEZ LOCATION: [facility] : 55 UNIT #: [id number] AGE: [address]: Morenita Caballero MD SEX: M ORDER DR: MEDICAL IMAGING REPORT Page 1 of 1 COPY
--- NOTE | ~2017-02-03 | EKG ---
PATIENT: JOSUE RODRÍGUEZ UNIT #: [id number] Ventricular Rate: 105 BPM Atrial Rate: 125 BPM QRS Duration: 92 ms Q-T Interval: 360 ms QTC Calculation(Bezet): 475 ms Calculated R [place]: 62 degrees Calculated T [place]: -97 degrees Diagnosis Line: Atrial fibrillation with rapid ventricular Diagnosis Line: response Diagnosis Line: Voltage criteria for left ventricular hypertrophy Diagnosis Line: Marked ST abnormality, possible lateral Diagnosis Line: subendocardial injury Diagnosis Line: Abnormal ECG Diagnosis Line: No previous ECGs available Diagnosis Line: Confirmed by AMY REHMAN MD ([id number]) on Diagnosis Line: 02/03/2017 11:17:28 PM INTERPRETING MD: SHERIE TEAGUE
--- NOTE | ~2017-02-03 | EKG ---
PATIENT: JOSUE RODRÍGUEZ UNIT #: [id number] Ventricular Rate: 81 BPM Atrial Rate: 82 BPM QRS Duration: 88 ms Q-T Interval: 394 ms QTC Calculation(Bezet): 457 ms Calculated R [place]: 60 degrees Calculated T [place]: 166 degrees Diagnosis Line: Atrial fibrillation with a competing junctional Diagnosis Line: pacemaker Diagnosis Line: T wave abnormality, consider lateral ischemia or Diagnosis Line: digitalis effect Diagnosis Line: Abnormal ECG Diagnosis Line: When compared with ECG of 11-FEB-2017 06:36, Diagnosis Line: QT has lengthened Diagnosis Line: Confirmed by ANTOINETTE BOWIE MD ([id number]) on 02/16/2017 Diagnosis Line: 8:08:10 AM INTERPRETING MD: JAMIR TEAGUE
--- NOTE | ~2017-02-03 | CR72 ---
[facility] A Service of [facility] & [facility] RADIOLOGY TEXT RESULTS PATIENT: JOSUE RODRÍGUEZ LOCATION: [address] : 55 UNIT #: [id number] AGE: [address]: Morenita Caballero MD SEX: M ORDER DR: [id number] [facility] [address] [facility]. [place], [place] [address] [id number] I MR#: [id number] Acc #: [id number] NAME: JOSUE RODRÍGUEZ : 1955 SEX: M STUDY DATE/TIME: 02/20/2017 3:05 UNIT: [facility] ROOM: [facility] STUDY DESCRIPTION: CR Chest Single View Portable Attending Physician: Morenita Caballero M.D. Ordering Physician: Matias Michaud M.D. Primary Care Physician: No Primary Care Physician MEDICAL IMAGING REPORT This report is preliminary unless electronic signature is present EXAM Chest x-ray: 02/20/2017. HISTORY 61-year-old male hospital inpatient with respiratory failure, shortness of air. Post-acute [place]. TECHNIQUE AP portable chest x-ray. FINDINGS Moderately dense diffuse interstitial and airspace opacity throughout both lungs with some sparing of the subpleural periphery. Pulmonary edema is likely. ARDS is a consideration. Cardiomegaly is stable. Right arm PICC in good position. Feeding tube below the diaphragm. Right subclavian transvenous pacer lead in the right ventricle. IMPRESSION Stable portable chest radiograph, unchanged since yesterday. Dictated by... Tristin Morris M.D. THIS IS AN ELECTRONICALLY VERIFIED REPORT Tristin Morris M.D. at 02/20/2017 10:03 PM RGW/chad TD: 02/20/2017 10:48 JOB #: [id number] MEDICAL IMAGING REPORT Page 1 of 1 COPY
--- NOTE | ~2017-02-03 | EKG ---
PATIENT: JOSUE RODRÍGUEZ UNIT #: [id number] Ventricular Rate: 93 BPM Atrial Rate: 101 BPM QRS Duration: 96 ms Q-T Interval: 422 ms QTC Calculation(Bezet): 524 ms Calculated R [place]: 51 degrees Calculated T [place]: 148 degrees Diagnosis Line: Atrial fibrillation Diagnosis Line: Left ventricular hypertrophy Diagnosis Line: ST and Marked T-wave abnormality, consider Diagnosis Line: inferolateral ischemia Diagnosis Line: Prolonged QT Diagnosis Line: Abnormal ECG Diagnosis Line: When compared with ECG of 08-FEB-2017 06:53, Diagnosis Line: (unconfirmed) Diagnosis Line: No significant change was found Diagnosis Line: Confirmed by ANTOINETTE BOWIE MD ([id number]) on 02/13/2017 Diagnosis Line: 7:33:27 AM INTERPRETING MD: JAMIR TEAGUE
--- NOTE | ~2017-02-03 | MR18 ---
[facility] A Service of [facility] RADIOLOGY TEXT RESULTS PATIENT: JOSUE RODRÍGUEZ LOCATION: [address] : 55 UNIT #: [id number] AGE: [address]: Morenita Caballero MD SEX: M ORDER DR: [id number] [facility] [address] [facility]. [place], [place] [address] [id number] I MR#: [id number] Acc #: [id number] NAME: JOSUE RODRÍGUEZ : 1955 SEX: M STUDY DATE/TIME: 02/12/2017 20:44 UNIT: [facility] ROOM: [facility] STUDY DESCRIPTION: MR Brain Wo Contrast Attending Physician: Morenita Caballero M.D. Ordering Physician: Alexandria Puri A.P.R.N. Primary Care Physician: Primary Care Physician No MRI CENTER REPORT This report is preliminary unless electronic signature is present. EXAM MRI brain without contrast HISTORY Encephalopathy and decreased left-sided response, and decreased responsiveness, left side weakness for 3 days. FINDINGS MRI brain was performed without contrast. Exam sensitivity is partly limited by motion. There is a subcentimeter area of restricted diffusion in the posterior margin of the right globus pallidus, with corresponding increased T2 and FLAIR signal, suggesting recent infarct. No additional restricted diffusion. Minimal chronic ischemic changes in the deep white matter bilaterally. No intracranial mass. No midline shift or ventricular dilatation or extraaxial fluid collection. Opacification of multiple mastoid air cells bilaterally. IMPRESSION 1. 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 2. No additional acute findings. 3. Minimal chronic ischemic changes in the deep white matter bilaterally. 4. Mucosal thickening and opacification of multiple mastoid air cells bilaterally. Dictated by... Zaid Queen M.D. THIS IS AN ELECTRONICALLY VERIFIED REPORT Zaid Queen M.D. at 02/13/2017 3:19 PM DFL/ljd [facility] A Service of [facility] RADIOLOGY TEXT RESULTS PATIENT: JOSUE RODRÍGUEZ LOCATION: [facility]18 : 55 UNIT #: [id number] AGE: [address]: Morenita Caballero MD SEX: M ORDER DR: TD: 02/13/2017 00:33 JOB #: [id number] MRI CENTER REPORT Page 1 of 1 COPY
--- NOTE | ~2017-02-03 | DS ---
Unit #: [id number] #: [id number] Patient: JOSUE RODRÍGUEZ [id number] [facility] [address] [facility]. [place], [place] [address] [id number] I MR#: [id number] NAME: JOSUE RODRÍGUEZ ROOM: 548 Age: 61 Sex: M Admission Date: 02/03/2017 : 1955 Discharge Date: 03/01/2017 Attending Physician: Morenita Caballero M.D. Primary Care Physician: No Primary Care Physician DISCHARGE SUMMARY TRANSFER DIAGNOSES 1. Acute non-ST elevation myocardial infarction. 2. Status post cardiac catheterization, 02/04/2017, per Dr. Dye at [facility] that revealed the following results: a. Left main normal. b. Left anterior descending artery with midvessel stenosis with 2 tandem lesions of 50% to 60%. c. Circumflex artery large caliber, codominant vessel with ostial proximal first obtuse marginal branch stenosis of 30%. Second obtuse marginal branch had ostial proximal stenosis of 30% to 40%. Mid and distal left circumflex artery with 30% to 40% stenosis. d. Right coronary artery large caliber dominant vessel with proximal diffuse disease with stenosis worst up to 99%. Mid right coronary artery 70% to 80%. A small caliber posterior left ventricular branch. There was a large caliber right posterior descending artery with ostial stenosis of 50%. 3. Status post percutaneous coronary intervention with 2 overlapping drug-eluting stents to the proximal right coronary artery and percutaneous coronary intervention with drug-eluting stent to the mid right coronary artery, 02/04/2017 4. Echocardiogram 02/08/2017 shows an ejection fraction of 40% to 45% with [id number]-[id number] concentric left ventricular hypertrophy. There is grade 1 diastolic dysfunction. Mild mitral regurgitation. Right ventricular systolic pressure 30 millimeters of mercury. 5. Repeat two-dimensional echocardiogram, 02/20/2017, shows ejection fraction of 50% to 55% with moderate concentric left ventricular hypertrophy (limited study). 6. Hypertensive urgency, resolved. 7. Acute diastolic heart failure, resolved. 8. Acute hypoxic respiratory failure, resolved. 9. Atrial fibrillation with rapid ventricular response, converted to controlled ventricular rate. 10. Tachybrady syndrome. 11. Sick sinus syndrome with sinus arrest pauses with temporary pacemaker placed, later removed. 12. Left lower lobe hospital-acquired pneumonia. 13. Chronic obstructive pulmonary disease exacerbation. 14. Acute kidney injury on chronic kidney disease stage 3. 15. Blood loss anemia. 16. Hematuria. 17. Acute/subacute ischemic right globus pallidus cerebrovascular accident. Unit #: [id number] #: [id number] Patient: JOSUE RODRÍGUEZ 18. Hyponatremia, resolved. 19. Hypokalemia, resolved. 20. Altered mental status/metabolic encephalopathy, resolved. 21. Dysphagia, resolved. 22. Nonsustained ventricular tachycardia. 23. Ethanol abuse. 24. Nicotine abuse. 25. Supratherapeutic International Normalized Ratio. 26. Depression. 27. Deconditioning. TRANSFER MEDICATIONS 1. Combivent unit dose q.i.d. 2. Combivent unit dose q.i.d. p.r.n. dyspnea. 3. Prednisone 40 mg daily. 4. Flomax 0.4 mg daily. 5. Acetaminophen 650 mg q.4 hours p.r.n. 6. Coumadin 3 mg daily starting 03/03/2017. 7. Bumex 2 mg daily. 8. Lipitor 80 mg q.h.s. 9. Lisinopril 10 mg daily. 10. Multivitamin 1 tablet daily. 11. Aspirin 81 mg daily. 12. Plavix 75 mg daily. 13. Protonix 40 mg daily. 14. Zyprexa 10 mg q.h.s. 15. Potassium chloride 20 mEq daily. 16. Isosorbide dinitrate 40 mg b.i.d. 17. Nitroglycerin 0.4 mg sublingual q.5 minutes x3 p.r.n. chest pain. 18. Prozac 20 mg daily. 19. Nystatin powder topically b.i.d. and p.r.n. to the groin and axilla. 20. Nicotine transdermal patch 7 mg daily. 21. Metoprolol tartrate 50 mg q.6 hours. HOSPITAL COURSE This is a 61-year-old male who has had a prolonged hospitalization. He originally came in for an acute non-ST elevation myocardial infarction where his troponin peaked at 10.2. He was treated with aspirin and full dose Lovenox. His blood pressure was uncontrolled, as high as 232/128 mmHg. Hypertension was controlled with addition of beta-juan and hydralazine. Cardiac catheterization was recommended. The following day the patient went to the cardiac catheterization lab where he was found to have nonobstructive lesions to the LAD and first and second obtuse marginal branch. The mid and distal left circumflex artery had nonobstructive disease of 30% to 40%. Right coronary artery, which was the culprit vessel, had AMY 2 flow with proximal stenosis of 99%. In the mid segment there was a long segment of stenosis of 70% to 80%. Right PDA had 50% stenosis. There was successful deployment of 2 overlapping drug-eluting stents measuring 3.5 x 38 mm and 4 x 15 mm that were inserted into the proximal right coronary artery. The stenosis was reduced to 0%. The mid right coronary artery was dilated using a 3.25 x 38 mm XIENCE drug-eluting stent. The patient was continued on dual antiplatelet therapy with aspirin and Brilinta. He was also started on high-dose statin. Lipid level showed control of his lipid levels. He had elevated LVEDP and was started on diuretics. The patient was also noted to be in atrial fibrillation with rapid ventricular response with the rates up to 125 beats per minute that Unit #: [id number] #: [id number] Patient: JOSUE RODRÍGUEZ was found on admission. The rate was controlled after institution of beta-juan. He was started on anticoagulation with Lovenox for both atrial fibrillation and myocardial infarction. He developed hematuria at one point. The hematuria resolved, and the patient was started on Flomax. The patient also had altered mental status with agitation that was treated with Ativan. His agitation became so severe that he required 4-point restraints. It was initially felt the patient had alcohol withdrawal. He developed acute respiratory failure and was intubated. He had copious amount of blood at the time. X-ray revealed questionable left lower lobe pneumonia with infiltrates. Dr. Michaud was asked to see the patient. His anticoagulation was held. Neurology was consulted because of altered mental status and agitation. [facility] protocol was instituted. MRI of the brain revealed a recent infarct in the right globus pallidus with focal restricted diffusion. The cerebrovascular accident did not explain altered mental status. It was felt that his encephalopathy was toxic versus metabolic. During the course of his stay the patient developed episodes of tachy-bradycardia. Because of bradycardia, Metoprolol was discontinued. The patient was started on low-dose Cardizem. He then developed multiple episodes of sinus arrest with pauses up to 9.4 seconds. Cardizem drip was discontinued, and the patient was treated with atropine. Temporary pacemaker was inserted. He was restarted on IV Cardizem at 10 mg an hour to control tachyarrhythmias. He also had an episode of nonsustained ventricular tachycardia of 14 beats and was temporarily started on amiodarone drip that was later discontinued. Creatinine increased with urinary output decreased. Creatinine peaked at 2.3. Dr. Perdue was asked to see the patient. He felt that the elevation of creatinine was from acute tubular necrosis versus acute interstitial nephritis. The patient was diuresed with IV diuretics and was given bicarbonate. Urinalysis was also done with no evidence of urinary tract infection. Was positive for yeast. He later developed hypernatremia with sodium level of 162. This was treated with free water. The patient was restarted on anticoagulation with heparin drip for atrial fibrillation. There was bloody drainage from the Dobbhoff tube. The heparin drip was discontinued. His hemoglobin dropped from 8.9. No transfusion was required. His hemoglobin stabilized. The patient was improving. He was eventually weaned off the ventilator. Heart rate improved. Cardizem drip was discontinued, and the patient was started on Metoprolol. He was doing well but later developed agitation. His heart rate and blood pressure were elevated. Blood pressure was controlled on hydralazine and Isordil. The patient had another episode of acute respiratory failure and was placed on BiPAP. Pulmonary started the patient on IV steroids. Because of agitation, Dr. Navarro saw the patient and felt he had an element of depression. He was started on Zyprexa and fluoxetine. His respiratory status eventually improved. Speech pathology did bedside swallow eval on the patient and felt he was high risk for dysphagia and was kept NPO. Dobbhoff tube was replaced. He eventually progressed to pureed, honey-thickened to mechanical soft diet as his dysphagia improved. The patient's hospital course was complicated with elevated white count. Blood cultures were done, which were negative. ID, Dr. Rodríguez, jackson Unit #: [id number] #: [id number] Patient: JOSUE RODRÍGUEZ the patient. Sputum cultures were positive for yeast, and the patient was started on oral Diflucan. All antibiotics were discontinued. His white count improved. The patient clinically improved. The pacemaker was discontinued. No permanent pacemaker was needed because his rate was stable. He was eventually transferred to the floor. Physical therapy and occupational therapy saw the patient because of deconditioning and suggested rehab. The patient has a [id number] score of 4 and needs long-term anticoagulation. Heparin and Lovenox were discontinued, and the patient was started on Coumadin. His INR is supratherapeutic today at 5.0. Coumadin will be withheld today with a decreased dose. He was changed from Brilinta to Plavix. His renal function improved. All consults agree that the patient is stable for transfer to [facility]. CONSULTATIONS 1. Dr. Matias Michaud, pulmonology. 2. Dr. Deleon, urology. 3. Dr. Navarro, psychiatry. 4. Dr. Guillaume, neurology. 5. Dr. Kody Perdue, nephrology. 6. Dr. Rutherford, infectious disease. 7. Dr. Ricketts, internal medicine with [facility]. ASSESSMENT VITAL SIGNS: Blood pressure 102/81, heart rate 96, temperature 98.2. CHEST: Clear with diminished breath sounds in both lung bases. HEART: S1, S2 with irregularly irregular rhythm. No murmurs. No rubs. No clicks. ABDOMEN: Soft, nontender. Bowel sounds are present. EXTREMITIES: Without leg edema. DIAGNOSTIC STUDIES LABORATORY STUDIES: Hemoglobin 11.5, hematocrit 33.3, platelet count 272, white count 12.3. Sodium 137, potassium 3.9, BUN 33, creatinine 1.3, glucose 97, magnesium 2.1. INR 5. Cholesterol 136, triglycerides 36, LDL 86, HDL 43. TSH 0.81. IMAGING: CT of the head, 02/09/2017, shows no intracranial process. MRI of the brain, 02/12/2017, shows subcentimeter recent infarct in the right globus pallidus with focal restricted diffusion. MRA of the brain shows no major intracranial artery occlusion. There is questionable negw-ia-hqynqsfi multifocal short segment stenosis in the distal right P2, in the proximal left P2, and in the M1 segments bilaterally. MRA of the neck shows both vertebral arteries to be patent. Common carotid arteries, carotid bulbs and cervical internal carotid arteries are patent bilaterally. CT of the chest, 02/14/2017, showed patchy multifocal infiltrates within both lungs. CARDIOVASCULAR: Electrocardiogram, 02/19/2017, shows atrial fibrillation with a rate of 107 blood pressure with left ventricular hypertrophy. There is T wave inversion in the lateral leads. Unit #: [id number] #: [id number] Patient: JOSUE RODRÍGUEZ Rhythm strips show atrial fibrillation (1) ventricular rate. DISPOSITION [facility]. DISCHARGE INSTRUCTIONS 1. The patient will be discharged to rehab because of deconditioning. 2. He will follow up with Dr. Michaud after rehab in 6-8 weeks. He will need a chest x-ray in the office. 3. Follow up with Dr. Caballero on April 09 at 1 p.m. 4. Will withhold Coumadin today and tomorrow because of "subtherapeutic" INR. Will start Coumadin 3 mg daily with daily PT-INR for goal INR of 2 to 3 for anticoagulation for atrial fibrillation. 5. Continue dual antiplatelet therapy with aspirin and Plavix for at least one year. 6. The patient will be discharged home on BENITA inhibitor, beta-juan and high-intensity statin with Lipitor. 7. As per Dr. Michaud's note, prednisone should be continued at 40 mg daily for 2-3 months if tolerated, and if not, consider taper. Dictated by... Wilian Nicole A.P.R.N. for Morenita Caballero M.D. AEP/db TD: 03/01/2017 15:38 JOB #: [id number] CC: Otilia Ac M.D. DISCHARGE SUMMARY Page 1 of 1 X Wilian Nicole APRN X DISCHARGE SUMMARY
--- NOTE | ~2017-02-03 | CR72 ---
[facility] A Service of [facility] RADIOLOGY TEXT RESULTS PATIENT: JOSUE RODRÍGUEZ LOCATION: [address] : [birth year] UNIT #: [id number] AGE: [address]: Morenita Caballero MD SEX: M ORDER DR: [id number] [facility] [address] [facility] [place], [place] [address] [id number] MR#: [id number] #: [id number] NAME: JOSUE RODRÍGUEZ : 1955 SEX: M STUDY DATE/TIME: 02/21/2017 22:45 UNIT: [facility] ROOM: [facility] STUDY DESCRIPTION: CR Chest Single View Portable Attending Physician: Morenita Caballero M.D. Ordering Physician: Morenita Caballero M.D. Primary Care Physician: Primary Care Physician No MEDICAL IMAGING REPORT This report is preliminary unless electronic signature is present EXAM Frontal chest 02/21/2017 INDICATIONS Shortness of air. Dobbhoff tube placement. TECHNIQUE Frontal chest compared with 0758 hours today. FINDINGS What appears to represent an enteric tube is present and the tip is below the level of the juanito. Recommend advancement on the order of about 20 cm for reassessment of positioning prior to usage. Right-sided PICC line unchanged. Transvenous pacemaker unchanged. The heart is enlarged. There has been interval decrease in vascular congestion and interstitial edema. No pneumothorax. IMPRESSION 1. The tip of the enteric tube is inferior to the juanito. Suggest advancement on the order about 20 cm with a repeat radiograph to document appropriate positioning prior to usage. Findings called to the patient's nurse at the time of this dictation. 2. Interval improvement of vascular congestion and interstitial edema. No pneumothorax or other significant change. STAT * RESULT Dictated by... Reji Woodward M.D. [facility] A Service of [facility] RADIOLOGY TEXT RESULTS PATIENT: JOSUE RODRÍGUEZ LOCATION: [address] : [birth year] UNIT #: [id number] AGE: [address]: Morenita Caballero MD SEX: M ORDER DR: THIS IS AN ELECTRONICALLY VERIFIED REPORT Reji Woodward M.D. at 02/22/2017 11:29 AM [place] TD: 02/21/2017 23:25 JOB #: [id number] MEDICAL IMAGING REPORT Page 1 of 1 COPY
--- NOTE | ~2017-02-03 | CT3 ---
[facility] A Service [facility] RADIOLOGY TEXT RESULTS PATIENT: JOSUE RODRÍGUEZ LOCATION: [address] : [birth year] UNIT #: [id number] AGE: [address]: Morenita Caballero MD SEX: M ORDER DR: [id number] [place] [address] [facility]. [place], [place] [address] [id number] I MR#: [id number] Acc #: [id number] NAME: JOSUE RODRÍGUEZ : 1955 SEX: M STUDY DATE/TIME: 02/05/2017 12:02 UNIT: [facility] ROOM: [facility] STUDY DESCRIPTION: CT Abd and Pelv WWo Cont Attending Physician: Morenita Caballero M.D. Ordering Physician: Micah Cole Jr., M.D. Primary Care Physician: Primary Care Physician No MEDICAL IMAGING REPORT This report is preliminary unless electronic signature is present EXAM CT abdomen and pelvis without and with contrast, adrenal mass protocol. DATE 02/05/2017 HISTORY Right adrenal mass seen on CTA chest 02/03/2017 for which additional diagnostic imaging was recommended. Elevated white blood cell count. Currently with hematuria. COMPARISON CTA of the chest 02/03/2017. No prior abdominal imaging at this institution. PROCEDURE Precontrast and dynamic postcontrast imaging was obtained of the abdomen with attention to the kidneys and adrenal glands. Postcontrast imaging was extended through the pelvis. Enteric contrast was not administered. Sagittal and coronal reformatted images were obtained. This CT exam was performed with one or more of the following radiation dose reduction techniques: Automatic exposure control, adjustment of mA and/or kV according to patient size, and iterative reconstruction. FINDINGS ABDOMEN FINDINGS: High-density material is seen within the gallbladder on the noncontrast portion of the examination, which could represent vicariously excreted contrast from previous CT exam or retained stones or sludge. Additionally, presumed excreted contrast material is seen within the urinary bladder. On postcontrast imaging, there is mild bilateral renal cortical scarring [facility] A [facility] RADIOLOGY TEXT RESULTS PATIENT: JOSUE RODRÍGUEZ [facility]ATION[facility] [id number] : 55 UNIT #: [id number] AGE: [address]: Morenita Caballero MD SEX: M ORDER DR: in the upper poles. A 9 mm hyperdense lesion in the posterior right mid kidney measures 9 mm (precontrast Hounsfield units 31, postcontrast Hounsfield units 27.6), consistent with a benign hemorrhagic or proteinaceous cyst. No suspicious enhancing solid renal masses are identified on today's exam. There is diffuse bilateral adrenal thickening on today's examination without discrete nodularity, most in keeping with the appearance of benign adrenal hyperplasia. No suspicious enhancing adrenal mass lesion is identified. Dense right lower lobe airspace disease is present with small right, trace left pleural effusions. Mild posterior left basilar atelectasis is noted. Mild cardiomegaly with coronary artery calcification. The liver, spleen, pancreas are within normal limits. There is small-quantity pericholecystic fluid. No biliary dilation is evident. Appendix is normal. Tiny umbilical hernia contains only fat. PELVIS FINDINGS: Mild prostatic enlargement protruding into the urinary bladder base. Rectum is normal. No pelvic adenopathy or free fluid. Small amount of induration in the right groin likely represents attempts at vascular access. IMPRESSION 1. No suspicious adrenal nodules seen on today's examination. There is slight diffuse thickening of the bilateral adrenal glands, which maintain normal adreniform shape, suggesting the presence of adrenal hyperplasia. 2. High-density material is seen within the gallbladder, which could represent vicariously excreted contrast from previous contrasted study versus sludge and/or gallstones. 3. There is small-quantity pericholecystic fluid. Cholecystitis cannot be excluded. Correlate with clinical symptoms. Gallbladder ultrasound may prove helpful for further evaluation. 4. Dense posterior right lower lobe airspace disease is nonspecific. Correlate clinically for pneumonia. Mild posterior left basilar atelectasis. 5. Small right, trace left pleural effusions. 6. Small right renal cyst. 7. No urinary tract stone or hydronephrosis. 8. Mild prostatic enlargement. Dictated by... Torie Jackson M.D. THIS IS AN ELECTRONICALLY VERIFIED REPORT Torie Jackson M.D. at 02/06/2017 11:57 AM [facility] A Service of [facility] RADIOLOGY TEXT RESULTS PATIENT: JOSUE RODRÍGUEZ LOCATION: C[facility]3 CICCU3-18 : 55 UNIT #: [id number] AGE: [address]: Morenita Caballero MD SEX: M ORDER DR: OUSMANE/mark TD: 02/06/2017 02:23 JOB #: [id number] MEDICAL IMAGING REPORT Page 1 of 1 COPY
--- NOTE | ~2017-02-03 | FU ---
[facility] Nutrition Therapy DATE: 02/22/17 Patient: JOSUE RODRÍGUEZ Physician: ATTPRE Address: [address] [place] [address] Room/Bed: [address], Zip: [place] [address] Admit Date: 02/03/17 Date of : 55 Height: 5 11 Weight: 196 89 NUTRITION MONITORING/FOLLOW-UP: Reason: PT SEEN FOR FOLLOW-UP/ENTERAL NUTRITION SUPPORT DX: ACUTE NSTEMI Anthropometrics: 5'11", WT: 196# ( 89 KG), BMI: 27.3 -ADMIT WEIGHT: 190-194# Labs: GLU: 178, BUN: 60, CREAT: 1.6, CA+:8.0, ALB: 2.5, PHOS: 4.8, GFR: 53.1, NA+:146 Meds: SOLU-MEDROL, PROTONIX, KCL, LOPRESSOR, NOVOLOG, MVI, NACL, PHENERGAN, LIPITOR I&O's: 5745/4999, 4 BMs NOTED Skin: SCATTERED BRUISES EDEMA: BUE/BLE/SCROTUM TRACE EDEMA Estimated Nutrition Needs: [phone] KCAL ~85 G PRO Assessment: CHART REVIEWED AND EVENTS NOTED. PT SEEN FOR ENTERAL NUTRITION SUPPORT FOLLOW-UP. PT EXTUBATED, ASLEEP AT TIME OF VISIT (RD ATTEMPTED TO WAKE PT WITH VERBAL CUES). PER RN AND CHART, TREE CHIPPER DEEMED PT APPROPRIATE FOR DIET ADVANCEMENT THIS AM -PUREED + HONEY THICK LIQUID. PT CONTINUES ON ENTERAL NUTRITION SUPPORT OF JEVITY 1.5 @ 55 ML/HR (GOAL RATE). PER RN AND CHART, PT TOLERATING ENTERAL NUTRITION, NOTING NO ISSUES. PER PUMP HISTORY, PT RECEIVED ~39% GOAL VOLUME OVER THE PAST 24 HOURS. PT ALSO RECEIVING FREE H20 FLUSHES OF 300 ML q 6 HOURS 2' ELEVATED NA+ LEVELS. RD TO CONTINUE TO FOLLOW. SEE RECOMMENDATIONS BELOW. Dx: INADEQUATE ORAL INTAKE R/T CONFUSION, SLOW PROCESSING, RECENT EXTUBATION AEB NEED FOR EN, TREE CHIPPER EVALUATION, NPO STATUS.-ACTIVE/RESOLVED NEW Dx: INADEQUATE ORAL INTAKE R/T CURRENT CLINICAL CONDITION AEB AEB NEED FOR EN, TREE CHIPPER EVALUATION OF DIET ORDER. Intervention: 1. TREE CHIPPER EVAL-PUREED DIET + HONEY THICK LIQUID 2. ENTERAL NUTRITION SUPPORT Monitoring, Evaluation and Goals: 1. ENTERAL NUTRITION CONSISTENT W/ESTIMATED NEEDS/PROVIDE >80% GOAL VOLUME X 24 HOURS-NOT MET/IN PROGRESS 2. ORAL INTAKE; ADVANCE DIET PER TREE CHIPPER RECOMMENDATIONS WHEN APPROPRIATE-MET 3. IMPROVE LABS; NA+, PHOS, GLUCOSE, CREAT-IN PROGRESS [facility] Nutrition Therapy DATE: 02/22/17 Patient: JOSUE RODRÍGUEZ Physician: ATTPRE Address: [address] [place] [address] Room/Bed: [address], Zip: [place] [address] Admit Date: 02/03/17 Date of : [birth year] Height: 5 11 Weight: 196 89 NEW GOAL: 1. ORAL INTAKE; CONSUME/TOLERATE >50% OF MEALS MONITOR: -TF RATE/RESIDUALS/D/C? -DIET ADVANCEMENT/PO INTAKE & APPETITE -LABS -WEIGHTS Recommendations: 1. ENCOURAGE SLOW GRADUAL PO INTAKE PER TREE CHIPPER RECOMMENDATIONS-PUREED DIET + HONEY THICK LIQUIDS 2. ORDER ENSURE PUDDING BID IF PO INTAKE <50% 3. IF PT CONSUMES AT LEAST 50% OF MEALS, CONSIDER DISCONTINUING ENTERAL NUTRITION SUPPORT. IF PT CONSUMES MINIMAL INTAKE, CONTINUE CURRENT ENTERAL NUTRITION SUPPORT OF JEVITY 1.5 @ 55 ML/HR + FREE H20 FLUSHES PER MD 4. CONTINUE TO MONITOR ELECTROLYTES DAILY FOR MONITORING PURPOSES 5. CONTINUE TO MONITOR BLOOD SUGAR CONTROL-ELEVATED BLOOD SUGARS NOTED RD WILL F/U PER PROTOCOL PT IS MODERATELY COMPROMISED Respectfully, TAYA TUBBS MS, RD, LD [employer] Nutrition[employer] Services [facility] cc: client file
--- NOTE | ~2017-02-03 | CR7 ---
[facility] A Service of [facility] & [facility] RADIOLOGY TEXT RESULTS PATIENT: JOSUE RODRÍGUEZ LOCATION: [address]18 : [birth year] UNIT #: [id number] AGE: [address]: Morenita Caballero MD SEX: M ORDER DR: [id number] [facility] [address] [facility]. [place], [place] [address] [id number] MR#: [id number] Acc #: [id number] NAME: JOSUE RODRÍGUEZ : 1955 SEX: M STUDY DATE/TIME: 02/16/2017 12:30 UNIT: [facility] ROOM: [facility] STUDY DESCRIPTION: CR Abdomen Single AP View Attending Physician: Morenita Caballero M.D. Ordering Physician: Morenita Caballero M.D. Primary Care Physician: Primary Care Physician No MEDICAL IMAGING REPORT This report is preliminary unless electronic signature is present EXAM AP abdomen INDICATION Dobbhoff tube placement. FINDINGS This view of the upper abdomen shows the Dobbhoff tube has been advanced from the previous study and the tip is in the fundus of the stomach. The visible bowel gas pattern is normal. Dictated by... Justin Zhang M.D. THIS IS AN ELECTRONICALLY VERIFIED REPORT Justin Zhang M.D. at 02/17/2017 10:45 AM YANDY/mattie TD: 02/16/2017 15:22 JOB #: [id number] MEDICAL IMAGING REPORT Page 1 of 1 COPY
--- NOTE | ~2017-02-03 | CR72 ---
[facility] A Service of [facility] RADIOLOGY TEXT RESULTS PATIENT: JOSUE RODRÍGUEZ LOCATION: [facility]318 : 55 UNIT #: [id number] AGE: [address]: Morenita Caballero MD SEX: M ORDER DR: [id number] [facility] [address] [facility]. [place], [place] [address] [id number] I MR#: [id number] Acc #: [id number] NAME: JOSUE RODRÍGUEZ : 1955 SEX: M STUDY DATE/TIME: 02/09/2017 5:09 UNIT: [facility] ROOM: [facility] STUDY DESCRIPTION: CR Chest Single View Portable Attending Physician: Morenita Caballero M.D. Ordering Physician: Matias Michaud M.D. Primary Care Physician: No Primary Care Physician MEDICAL IMAGING REPORT This report is preliminary unless electronic signature is present EXAMINATION AP portable chest. DATE 02/09/2017 at 05:09. HISTORY 61-year-old male with shortness of breath, and respiratory failure today. Symptoms began 02/03/2017. History of congestive heart failure. COMPARISON AP portable chest, 02/08/2017. FINDINGS Stable moderate cardiac enlargement. New airspace disease in medial left lung base partially obscures the diaphragmatic margin. Mild central vascular congestion. Right IJ central line extends to the SVC. No visible pneumothorax. IMPRESSION 1. New airspace disease in the medial left lower lobe may represent atelectasis or evolving pneumonia. 2. Stable cardiomegaly with mild central vascular congestion. 3. No visible pneumothorax. Dictated by... Torie Jackson M.D. THIS IS AN ELECTRONICALLY VERIFIED REPORT Torie Jackson M.D. at 02/09/2017 9:41 PM [facility]/seble [facility] A Service of [facility] RADIOLOGY TEXT RESULTS PATIENT: JOSUE RODRÍGUEZ LOCATION: [facility]318 : 55 UNIT #: [id number] AGE: [address]: Morenita Caballero MD SEX: M ORDER DR: TD: 02/09/2017 20:26 JOB #: [id number] MEDICAL IMAGING REPORT Page 1 of 1 COPY
--- NOTE | ~2017-02-03 | HP ---
Unit #: [id number] #: [id number] Patient: JOSUE RODRÍGUEZ 110016 [address] [place], [place] [address] [id number] I MR#: [id number] NAME: JOSUE RODRÍGUEZ ROOM: [facility]3 Age: 61 Sex: M Admission Date: 02/03/2017 : 1955 Attending Physician: Morenita Caballero M.D. HISTORY AND PHYSICAL HISTORY OF PRESENT ILLNESS This is a pleasant 61-year-old male, who presented to the emergency room with complaints of chest pain. Chest pain apparently started last night. It was a sudden, but persistent. The patient took 2 baby aspirin. His pain was described as a tightness and heaviness. It was associated with palpitations, nausea, and vomiting as well as shortness of breath. It was relieved by nothing, therefore, leading him to seek medical attention. On arrival to the emergency room, the patient was noted to be in hypertensive urgency with blood pressures as high as 226/135, he was started on IV nitroglycerin drip and also given stat medications for blood pressure control. The patient was also noted to have a point of care troponin of 10. Initial EKG showed atrial fibrillation with rapid ventricular response with a rate of 105 beats per minute, marked ST abnormality in the lateral leads. He was also started on nitroglycerin drip. At present, he is chest pain-free. PAST MEDICAL HISTORY Tobacco abuse. Otherwise, no past medical history. ALLERGIES No known drug allergies. HOME MEDICATIONS No reported home medicines. SOCIAL HISTORY He is employed. He denies tobacco use. Denies alcohol or illicit drugs. FAMILY HISTORY Negative for coronary artery disease. REVIEW OF SYSTEMS Negative except for what is stated above in the HPI. PHYSICAL EXAMINATION GENERAL: This is a pleasant 61-year-old male, in no acute distress. VITAL SIGNS: Temperature 98.1, respiratory rate 18, pulse 106, blood pressure 226/135. HEENT: Head is atraumatic and normocephalic. Pupils are equal and round. NECK: Supple. No JVD. No lymphadenopathy. Carotid upstrokes are normal. CHEST: Lungs are clear to auscultation. No rales, rhonchi, or wheezes. Unit #: [id number] #: [id number] Patient: JOSUE RODRÍGUEZ CARDIAC: S1, S2. Irregularly irregular. No murmurs, gallops, or rubs. ABDOMEN: Soft, nontender, nondistended. Bowel sounds are present. EXTREMITIES: Positive pulses. No clubbing, cyanosis, or edema. SKIN: Warm and dry. NEUROLOGIC: The patient is awake, alert, and oriented. Follows commands. Moves all extremities equally. DIAGNOSTIC STUDIES LABORATORY RESULTS: Point of care troponin is 10.2, glucose 102, sodium 138, potassium 2.9, creatinine is 1.2. BNP is 299. IMAGING STUDIES: Chest x-ray shows skbj-ql-vqbjfwug cardiac silhouette enlargement, and suspicion of some vascular congestion and interstitial edema centrally, however, there are no comparison films. No pleural effusion, pneumothorax, or focal alveolar infiltrate is appreciated. CTA of the chest shows no evidence of PE, parenchymal opacity dependent aspect right lower lobe with a ground-glass opacity may be related atelectasis through an area of focal pneumonitis, though an area focal pneumonitis is not excluded. Due to its nonsegmental distribution and dependent distribution, I suspect this represents atelectasis. Mild interstitial prominence and cardiomegaly could reflect early CHF. No overt signs of CHF. No overt signs of heart failure. Incidental right adrenal nodule indeterminate on this CT. CARDIOVASCULAR STUDIES: EKG; atrial fibrillation with rapid ventricular response rate of 105 beats per minute. Voltage criteria for LVH. ST abnormality and possible lateral injury, QTc interval of 475 msec. IMPRESSION 1. Acute non-ST elevated myocardial infarction. 2. Atrial fibrillation with rapid ventricular response. 3. Hypertensive urgency. 4. Tobacco abuse. 5. Hypokalemia. PLAN The patient will be started on a nitroglycerin drip as well as a Cardizem drip. We will also get a chest CT to rule out aortic dissection stat. If there is no dissection, we will start the patient on heparin and Integrilin drips. He has been given aspirin, will be started on Lopressor 25 mg p.o. q.6 with parameters as well as hydralazine q.6 with parameters. The patient will also undergo 2D echocardiogram stat. The patient's potassium was also found to be low. This will be supplemented. We will check CBC, CMP, TSH, fasting lipid, and continue to trend cardiac enzymes. We will repeat EKG in the a.m. The patient has been started on high-dose statin therapy. He will be kept n.p.o. after midnight for cardiac catheterization tomorrow per Dr. Dye. This has been explained to the patient including risk and benefits and he is willing and agreeable to proceed. Further recommendations pending the outcome of the cardiac catheterization. Dictated by Charles Zambrano/luzma TD: 02/09/2017 04:13 Unit #: [id number] #: [id number] Patient: JOSUE RODRÍGUEZ JOB #: [id number] HISTORY AND PHYSICAL Page 1 of 1 X Martha Moss CLINIC DIRECTOR X HISTORY AND PHYSICAL
--- NOTE | ~2017-02-03 | CO ---
Unit #: [id number] #: [id number] Patient: JOSUE RODRÍGUEZ [id number] [facility] [address] [facility]. [place], [place] [address] [id number] I MR#: [id number] NAME: JOSUE RODRÍGUEZ ROOM: CIC2 Age: 61 Sex: M Admission Date: 02/03/2017 : 1955 Attending Physician: Morenita Caballero M.D. Primary Care Physician: Primary Care Physician No Consultation Date: 02/21/2017 CONSULTATION REPORT REASON FOR CONSULTATION Followup. DISCUSSION Mr. Neves is a 61-year-old male, seen in CCU-3, bed 18, on 02/21/2017 at [facility]. The patient is more alert and awake, receiving BiPAP. The patient showing decrease in agitation and anxiety. Able to answer some questions, but still confused. Unable to give any reliable information. Information obtained from nursing staff. The patient tolerating Haldol fairly well. Vital signs; heart rate 85, respiratory rate 12, blood pressure 113/76, and oxygen saturation 96%. REVIEW OF SYSTEMS Complete review of systems unremarkable except as mentioned above. MENTAL STATUS EXAMINATION General appearance; the patient dressed in hospital attire, lying in a propped up position, receiving BiPAP, but able to answer some questions. Attention span and concentration, poor. Speech, slow. Orientation in self. Mood and affect, labile. Thought process, circumstantial. Thought content; guarded and paranoid, but denied any thoughts of harming self or others. Recent and remote memory, poor. Language, fair. Fund of knowledge, unable to assess. Insight and judgment, impaired. DIAGNOSIS Psychiatric: Delirium, F05. ASSESSMENT/PLAN Supportive psychotherapy and psychoeducation provided to the patient, but the patient unable to comprehend much. Continue with current treatment. If needed, consider further adjustment of medication. Please feel free to call if any questions, telephone #[phone]. Dictated by... Ismael Navarro M.D. PAUL/luzma TD: 02/24/2017 17:18 JOB #: [id number] Unit #: [id number] #: [id number] Patient: JOSUE RODRÍGUEZ CONSULTATION REPORT Page 1 of 1 X Ismael Navarro MD CONSULTATION REPORT
--- NOTE | ~2017-02-03 | FU ---
[facility] Nutrition Therapy DATE: 02/18/17 Patient: JOSUE RODRÍGUEZ Physician: ATTPRE Address: [address] [place] [address] Room/Bed: [address], Zip: [place] [address] Admit Date: 02/03/17 Date of : [birth year] Height: 5 11 Weight: 211 96 NUTRITION MONITORING/FOLLOW-UP: Reason: Nutrition follow up Anthropometrics: Ht: 71" Adm wt: 86.1 kg BMI: 27 Wt 02/18: 96 kg Labs: Na+ 161 Cl- 127 Gluc 152 Creat 1.9 Alb 2.6 Accuchecks 134-153 GFR 43.1 Phos (from 02/16): 6.1 Meds: Phenergan, novolog, lipitor, solu-medrol, MVI + minerals, pepcid I&O's: 8247/3532, last BM 02/18 Skin: Scattered bruising Edema: 1+ BUE/ BLE Trace- scrotum Estimated Nutrition Needs: 0329-5249 kcals (20-25 kcals/kg) ~85 grams protein daily (1.0 grams/kg) Fluids consistent with kcal needs or per MD Diet: NPO Assessment: Chart reviewed, events noted. Pt remains in ICU and was extubated yesterday. REGIONAL OPERATIONS DIRECTOR evaluated the pt this AM, and recommended that he remains NPO for now d/t confusion and slow processing. REGIONAL OPERATIONS DIRECTOR return to re-assess likely tomorrow. Pt continues on enteral nutrition with Jevity 1.5 @ 35 mL/hr + Prostat BID. Now that the pt is extubated and no longer receiving propofol, goal rate will be adjusted. Please see recommendations below. Of note, the pt's sodium is elevated, and MD added 300 mL free H20 flushes q 4 hrs. Per pump history, the pt received 65% goal enteral volume over the past [address] spoke with the pt today, and he reports that he does have an appetite. Dx: Inadequate oral intake RT ventilator dependence AEB need for EN- RESOLVING/ NO LONGER ON THE VENT New Dx: Inadequate oral intake RT confusion, slow processing, recent extubation AEB need for EN, REGIONAL OPERATIONS DIRECTOR evaluation, NPO status. Intervention: [facility] Nutrition Therapy DATE: 02/18/17 Patient: JOSUE RODRÍGUEZ Physician: ATTPRE Address: [address] [place] [address] Room/Bed: [address], Zip: [place] [address] Admit Date: 02/03/17 Date of : 55 Height: 5 11 Weight: 211 96 1. Continue enteral nutrition 2. Advance diet per REGIONAL OPERATIONS DIRECTOR Monitoring, Evaluation and Goals: 1. Enteral nutrition consistent with estimated needs/ provide >80% goal volume x 24 hrs- NOT MET/ IN PROGRESS 2. Glucose, lytes WNL- IN PROGRESS/ NOT MET (NEED NEW LABS) NEW GOALS: 3. Oral intake; advance diet per REGIONAL OPERATIONS DIRECTOR recommendations when appropriate 4. Improve labs; Na+, Phos, glucose, creat Recommendations: 1. While the pt remains NPO, increase Jevity 1.5 to 55 mL/hr and discontinue Prostat to meet the pt's estimated nutrient needs. Free H20 flushes per MD orders noting elevated sodium levels. 2. Advance diet per REGIONAL OPERATIONS DIRECTOR recommendations as appropriate. 3. If diet is advanced and the pt is consuming at least 50% of meals, consider discontinuing enteral nutrition. 4. Obtain updated electrolyte levels for monitoring purposes. Status: Pt is at moderate nutritional risk. RD will continue to follow hospital course per protocol. Respectfully, JANELLE STEVENS RD, LD [employer] [facility] cc: client file
--- NOTE | ~2017-02-03 | CR6 ---
[facility] A Service of [facility] & [facility] RADIOLOGY TEXT RESULTS PATIENT: JOSUE RODRÍGUEZ LOCATION: [address]18 : [birth year] UNIT #: [id number] AGE: [address]: Morenita Caballero MD SEX: M ORDER DR: [id number] [facility] [address] [facility] [place] [facility]. [place], [place] [address] [id number] I MR#: [id number] Acc #: [id number] NAME: JOSUE RODRÍGUEZ : 1955 SEX: M STUDY DATE/TIME: 02/13/2017 16:39 UNIT: [facility] ROOM: [facility] STUDY DESCRIPTION: CR Abdomen Portable Sng View Attending Physician: Morenita Caballero M.D. Ordering Physician: Matias Michaud M.D. Primary Care Physician: No Primary Care Physician MEDICAL IMAGING REPORT This report is preliminary unless electronic signature is present EXAM KUB 02/13/2017 INDICATIONS Abdominal distension today. FINDINGS Supine view of the abdomen was obtained. The tip of the feeding tube is present in the stomach. The bowel gas pattern is normal. Colonic gas and stool are present. There is no bowel obstruction. Ospina catheter is noted, as well. Dictated by... Marlon Urrutia Jr., M.D. THIS IS AN ELECTRONICALLY VERIFIED REPORT Marlon Urrutia Jr., M.D. at 02/14/2017 7:17 AM NANCY/estephania TD: 02/13/2017 18:07 JOB #: [id number] MEDICAL IMAGING REPORT Page 1 of 1 COPY
--- NOTE | ~2017-02-03 | EKG ---
PATIENT: JOSUE RODRÍGUEZ UNIT #: [id number] Ventricular Rate: 99 BPM Atrial Rate: 227 BPM QRS Duration: 86 ms Q-T Interval: 300 ms QTC Calculation(Bezet): 385 ms Calculated R [place]: 53 degrees Calculated T [place]: 170 degrees Diagnosis Line: Atrial fibrillation Diagnosis Line: Left ventricular hypertrophy Diagnosis Line: Cannot rule out Septal infarct , age undetermined Diagnosis Line: ST and T wave abnormality, consider lateral ischemia Diagnosis Line: or digitalis effect Diagnosis Line: Abnormal ECG Diagnosis Line: When compared with ECG of 10-FEB-2017 06:24, Diagnosis Line: (unconfirmed) Diagnosis Line: Minimal criteria for Septal infarct are now Diagnosis Line: Present Diagnosis Line: QT has shortened Diagnosis Line: Confirmed by ANTOINETTE BOWIE MD ([id number]) on 02/13/2017 Diagnosis Line: 7:56:01 AM INTERPRETING MD: JAMIR TEAGUE
--- NOTE | ~2017-02-03 | CR72 ---
[facility] A Service of [facility] RADIOLOGY TEXT RESULTS PATIENT: JOSUE RODRÍGUEZ LOCATION: [address]-18 : 55 UNIT #: [id number] AGE: [address]: Morenita Caballero MD SEX: M ORDER DR: [id number] [facility] [address] [facility]. [place], [place] [address] [id number] I MR#: [id number] Acc #: [id number] NAME: JOSUE RODRÍGUEZ : 1955 SEX: M STUDY DATE/TIME: 02/15/2017 5:05 UNIT: [facility] ROOM: [facility] STUDY DESCRIPTION: CR Chest Single View Portable Attending Physician: Morenita Caballero M.D. Ordering Physician: Matias Michaud M.D. Primary Care Physician: Primary Care Physician No MEDICAL IMAGING REPORT This report is preliminary unless electronic signature is present EXAM AP portable chest, 02/15/2017 HISTORY Respiratory failure, hypertension and atrial fibrillation. Symptoms began 02/03/2017. COMPARISON AP portable chest, 02/14/2017 FINDINGS Low volume inspiration. Diffuse alveolar changes are seen throughout both lungs, increased particularly in the right upper lobe, thought to represent worsening pneumonia. Stable cardiomegaly. ET tube, Dobbhoff tube, right IJ central line, and right subclavian approach electrode device appear unchanged. IMPRESSION Ill-defined bilateral lung airspace disease thought to represent changes of pneumonia, increased in the right upper lobe compared to one day prior. Dictated by... Torie Jackson M.D. THIS IS AN ELECTRONICALLY VERIFIED REPORT Torie Jackson M.D. at 02/18/2017 8:41 AM Kofi TD: 02/15/2017 08:04 JOB #: [id number] MEDICAL IMAGING REPORT Page 1 of 1 COPY
--- NOTE | ~2017-02-03 | CR72 ---
[facility] A Service of [facility] RADIOLOGY TEXT RESULTS PATIENT: JOSUE RODRÍGUEZ LOCATION: [address] : 55 UNIT #: [id number] AGE: [address]: Morenita Caballero MD SEX: M ORDER DR: [id number] [facility] [address] [facility]. [place], [place] [address] [id number] I MR#: [id number] Acc #: [id number] NAME: JOSUE RODRÍGUEZ : 1955 SEX: M STUDY DATE/TIME: 02/10/2017 3:11 UNIT: [facility] ROOM: [facility] STUDY DESCRIPTION: CR Chest Single View Portable Attending Physician: Morenita Caballero M.D. Ordering Physician: Pratik Sears M.D. Primary Care Physician: Primary Care Physician No MEDICAL IMAGING REPORT This report is preliminary unless electronic signature is present EXAM AP portable chest DATE 02/10/2017 at 03:11 HISTORY Respiratory failure. Symptoms began 02/03/2017. Additional history of hypertension, chest pain, atrial fibrillation. Right lower lobe pneumonia. COMPARISON AP portable chest 02/09/2017. FINDINGS Airspace disease within the retrocardiac left lower lobe appears vgpbkk-ru-zgggbekz increased. Ill-defined infiltrate within the right base appears slightly more prominent or has developed. Stable cardiac enlargement. ET tube, enteric feeding tube, right IJ central line appear stable. No visible pneumothorax. IMPRESSION 1. Stable to increased left basilar airspace disease. Correlate clinically for worsening pneumonia. Suspected developing infiltrate within the right base, as well. 2. Stable cardiomegaly. Dictated by... Torie Jackson M.D. THIS IS AN ELECTRONICALLY VERIFIED REPORT Torie Jackson M.D. at 02/10/2017 9:39 PM [facility] A Service of [facility] RADIOLOGY TEXT RESULTS PATIENT: JOSUE RODRÍGUEZ LOCATION: [address] : [birth year] UNIT #: [id number] AGE: [address]: Morenita Caballero MD SEX: M ORDER DR: TD: 02/10/2017 18:38 JOB #: [id number] MEDICAL IMAGING REPORT Page 1 of 1 COPY
--- NOTE | ~2017-02-03 | CR72 ---
[facility] A Service of [facility] & [facility] RADIOLOGY TEXT RESULTS PATIENT: JOSUE RODRÍGUEZ LOCATION: [address]18 : [birth year] UNIT #: [id number] AGE: [address]: Morenita Caballero MD SEX: M ORDER DR: [id number] [facility] [address] [facility]. [place], [place] [address] [id number] I MR#: [id number] Acc #: [id number] NAME: JOSUE RODRÍGUEZ : 1955 SEX: M STUDY DATE/TIME: 02/16/2017 12:28 UNIT: [facility] ROOM: [facility] STUDY DESCRIPTION: CR Chest Single View Portable Attending Physician: Morenita Caballero M.D. Ordering Physician: Morenita Caballero M.D. Primary Care Physician: No Primary Care Physician MEDICAL IMAGING REPORT This report is preliminary unless electronic signature is present EXAM Portable chest. INDICATIONS Dobbhoff tube placement. FINDINGS This portable view of the chest shows the Dobbhoff tube has its tip in the mid-esophagus and would need to be advanced at least 20 cm, placed in the stomach. The endotracheal tube and temporary pacemaker wire and PICC catheter is stable and faint infiltrates are unchanged. Dictated by... Justin Zhang M.D. THIS IS AN ELECTRONICALLY VERIFIED REPORT Justin Zhang M.D. at 02/18/2017 9:47 AM YANDY/seble TD: 02/16/2017 15:22 JOB #: [id number] MEDICAL IMAGING REPORT Page 1 of 1 COPY
--- NOTE | ~2017-02-03 | CR72 ---
[facility] A Service of [facility] RADIOLOGY TEXT RESULTS PATIENT: JOSUE RODRÍGUEZ LOCATION: [address]18 : 55 UNIT #: [id number] AGE: [address]: Morenita Caballero MD SEX: M ORDER DR: [id number] [facility] [address] [facility]. [place], [place] [address] [id number] I MR#: [id number] Acc #: [id number] NAME: JOSUE RODRÍGUEZ : 1955 SEX: M STUDY DATE/TIME: 02/14/2017 4:50 UNIT: [facility] ROOM: [facility] STUDY DESCRIPTION: CR Chest Single View Portable Attending Physician: Morenita Caballero M.D. Ordering Physician: Matias Michaud M.D. Primary Care Physician: Primary Care Physician No MEDICAL IMAGING REPORT This report is preliminary unless electronic signature is present EXAM AP portable chest 02/14/2017 04:50 HISTORY Respiratory failure. Hypertension. Atrial fibrillation. Symptoms began 02/03/2017. Coronary artery disease. COMPARISON AP portable chest 02/13/2017. FINDINGS Low volume inspiration. Stable cardiac enlargement. Hazy ill-defined infiltrates are present within both lungs which appear, probably stable, allowing for slight differences in technique. Right IJ central line, right subclavian approach electrode, ET tube, enteric tube appear stable. No visible pneumothorax. IMPRESSION 1. Allowing for slight differences in technique, the scattered ill-defined infiltrates in both lungs appear stable. 2. Supporting lines and tubes appear stable. No visible pneumothorax. 3. Stable cardiac enlargement. Dictated by... Torie Jackson M.D. THIS IS AN ELECTRONICALLY VERIFIED REPORT Torie Jackson M.D. at 02/14/2017 9:49 PM OUSMANE/mattie TD: 02/14/2017 06:29 JOB #: [id number] [facility] A Service of [facility] RADIOLOGY TEXT RESULTS PATIENT: JOSUE RODRÍGUEZ LOCATION: [facility]3-18 : 55 UNIT #: [id number] AGE: [address]: Morenita Caballero MD SEX: M ORDER DR: MEDICAL IMAGING REPORT Page 1 of 1 COPY
--- NOTE | ~2017-02-03 | EKG ---
PATIENT: JOSUE RODRÍGUEZ UNIT #: [id number] Ventricular Rate: 91 BPM Atrial Rate: 91 BPM QRS Duration: 94 ms Q-T Interval: 432 ms QTC Calculation(Bezet): 531 ms Calculated R [place]: 54 degrees Calculated T [place]: -95 degrees Diagnosis Line: Atrial fibrillation Diagnosis Line: Voltage criteria for left ventricular hypertrophy Diagnosis Line: Marked ST abnormality, possible lateral Diagnosis Line: subendocardial injury Diagnosis Line: Prolonged QT Diagnosis Line: Abnormal ECG Diagnosis Line: When compared with ECG of 03-FEB-2017 13:50, Diagnosis Line: (unconfirmed) Diagnosis Line: QT has lengthened Diagnosis Line: Confirmed by AMY REHMAN MD ([id number]) on Diagnosis Line: 02/03/2017 11:17:52 PM INTERPRETING MD: SHERIE TEAGUE
--- NOTE | ~2017-02-03 | EKG ---
PATIENT: JOSUE RODRÍGUEZ UNIT #: [id number] Ventricular Rate: 87 BPM Atrial Rate: 89 BPM QRS Duration: 100 ms Q-T Interval: 454 ms QTC Calculation(Bezet): 546 ms Calculated R [place]: 61 degrees Calculated T [place]: 143 degrees Diagnosis Line: Atrial fibrillation Diagnosis Line: Left ventricular hypertrophy Diagnosis Line: ST and Marked T wave abnormality, consider Diagnosis Line: anterolateral ischemia Diagnosis Line: Prolonged QT Diagnosis Line: Abnormal ECG Diagnosis Line: When compared with ECG of 07-FEB-2017 17:24, Diagnosis Line: (unconfirmed) Diagnosis Line: T wave inversion no longer evident in Inferior Diagnosis Line: leads Diagnosis Line: QT has lengthened Diagnosis Line: Confirmed by ANTOINETTE BOWIE MD ([id number]) on 02/13/2017 Diagnosis Line: 7:30:24 AM INTERPRETING MD: JAMIR TEAGUE
--- NOTE | ~2017-02-03 | CO ---
Unit #: [id number] #: [id number] Patient: JOSUE RODRÍGUEZ [id number] [facility] [address] [facility]. [place], [place] [address] [id number] I MR#: [id number] NAME: JOSUE RODRÍGUEZ ROOM: CIC3 Age: 61 Sex: M Admission Date: 02/03/2017 : 1955 Attending Physician: Morenita Caballero M.D. Primary Care Physician: Primary Care Physician No Consultation Date: 02/18/2017 CONSULTATION REPORT REASON FOR CONSULTATION Followup. DISCUSSION Mr. Neves is a 61-year-old male, seen in CCU 3, bed 18 on 02/18/2017 at [facility]. The patient was extubated, currently breathing, receiving oxygen. The patient was cooperative, oriented in place and self, able to answer questions in short sentences, single word. Vital signs; temperature 97.9, pulse 81, respirations 20, blood pressure 153/66, and oxygen saturation 98%. The patient did not show any agitation, making progress. REVIEW OF SYSTEMS Complete review of systems unremarkable. MENTAL STATUS EXAMINATION General appearance; the patient dressed casually in hospital attire, lying in a propped up position in bed, receiving oxygen and IV. Attention span and concentration, fair. Speech, slow. Orientation in self and place. Mood and affect, flat. Thought process, circumstantial. Thought content, guarded. Recent and remote memory, poor. Language, fair. Fund of knowledge, fair to slightly impaired. Insight and judgment, fair to slightly impaired. DIAGNOSIS Delirium, F05, resolving. ASSESSMENT/PLAN 1. Supportive psychotherapy and psychoeducation provided to the patient. Educated about benefits and side effects of medication and course and prognosis of illness. 2. Advised to continue with current treatment. If needed, consider further adjustment of medication such as considering Risperdal or Haldol if any agitation. We will continue to follow. Dictated by... Otilia Philip/luzma TD: 02/19/2017 08:11 JOB #: [id number] Unit #: [id number] #: [id number] Patient: JOSUE RODRÍGUEZ CONSULTATION REPORT Page 1 of 1 X Ismael Navarro MD CONSULTATION REPORT
--- NOTE | ~2017-02-03 | EKG ---
PATIENT: JOSUE RODRÍGUEZ UNIT #: [id number] Ventricular Rate: 106 BPM Atrial Rate: 108 BPM QRS Duration: 92 ms Q-T Interval: 318 ms QTC Calculation(Bezet): 422 ms Calculated R [place]: 59 degrees Calculated T [place]: -155 degrees Diagnosis Line: Atrial fibrillation with rapid ventricular Diagnosis Line: response Diagnosis Line: Left ventricular hypertrophy Diagnosis Line: ST and T wave abnormality, consider inferolateral Diagnosis Line: ischemia or digitalis effect Diagnosis Line: Abnormal ECG Diagnosis Line: When compared with ECG of 06-FEB-2017 06:16, Diagnosis Line: (unconfirmed) Diagnosis Line: No significant change was found Diagnosis Line: Confirmed by ORQUIDEA PAULSON MD ([id number]) on Diagnosis Line: 02/07/2017 7:13:46 AM INTERPRETING MD: CARLIN
--- NOTE | ~2017-02-03 | CO ---
Unit #: [id number] #: [id number] Patient: JOSUE RODRÍGUEZ [id number] [facility] [address]. [place], [place] [address] [id number] I MR#: [id number] NAME: JOSUE RODRÍGUEZ ROOM: CICCU3 Age: 61 Sex: M Admission Date: 02/03/2017 : 1955 Attending Physician: Morenita Caballero M.D. Primary Care Physician: Primary Care Physician No Consultation Date: 02/19/2017 CONSULTATION REPORT REASON FOR CONSULTATION Followup. DISCUSSION Mr. Josue Rodríguez is a 61-year-old male, seen in CCU-3, bed 18 on 02/19/2017 at [facility]. The patient still having confusion, agitation, disorganized. The patient is receiving BiPAP, still requiring mittens as he is trying to pull the IV. The patient's vital signs; temperature 99.5, heart rate 116, respiratory rate 20, blood pressure 131/81, and oxygen saturation 98%. The patient is unable to give any reliable information. Information obtained from the nursing staff, chart reviewed, labs reviewed. REVIEW OF SYSTEMS Complete review of systems is unremarkable except as mentioned above. MENTAL STATUS EXAMINATION General appearance; the patient dressed in hospital attire, lying in a propped up position, able to answer some questions. Attention span and concentration, poor. Speech, slow in volume. Oriented in self. Mood and affect; sad, dysphoric, flat. Thought process, circumstantial. Thought content, guarded but denied any thoughts of harming self or others. The patient is having agitation and requiring mittens bilateral arms and hands. Recent and remote memory, poor. Language, fair. Fund of knowledge, unable to assess. Insight and judgment, impaired. DIAGNOSES Psychiatric: Delirium, F05; psychosis, not otherwise specified, F29.0; major depressive disorder, recurrent, severe, F33.2. ASSESSMENT/PLAN Supportive psychotherapy and psychoeducation provided to the patient, but the patient unable to comprehend much at this time. I explained to the staff about treatment and also recommending to start the patient on Haldol 2 mg b.i.d. from Dobbhoff tube. If needed, we will consider further adjustment of medication. Please feel free to call if any questions, telephone #[phone]. Dictated by... Otilia Philip/luzma Unit #: [id number] #: [id number] Patient: JOSUE RODRÍGUEZ TD: 02/20/2017 22:58 JOB #: [id number] CONSULTATION REPORT Page 1 of 1 X Ismael Navarro MD X CONSULTATION REPORT
--- NOTE | ~2017-02-03 | CR72 ---
[facility] A Service of [facility] RADIOLOGY TEXT RESULTS PATIENT: JOSUE RODRÍGUEZ LOCATION: [place] [address]-18 : [birth year] UNIT #: [id number] AGE: [address]: Morenita Caballero MD SEX: M ORDER DR: [id number] [facility] [address] [facility] [place], [place] [address] [id number] I MR#: [id number] Acc #: [id number] NAME: JOSUE RODRÍGUEZ : 1955 SEX: M STUDY DATE/TIME: 02/03/2017 14:40 UNIT: [facility] ROOM: [facility] STUDY DESCRIPTION: CR Chest Single View Portable Attending Physician: Morenita Caballero M.D. Ordering Physician: Steven Barnes D.O. Primary Care Physician: Primary Care Physician No MEDICAL IMAGING REPORT This report is preliminary unless electronic signature is present EXAM Chest x-ray, single view portable. HISTORY Chest pain mid sternal starting today, smoker. COMMENT Single frontal portable view of the chest timed 14:40 02/03/2017 reviewed. No previous. Farm-ci-labntyfi cardiac silhouette enlargement seen. I have no comparison but I suspect there is some increased vascular markings and interstitial markings. No focal alveolar infiltrate. Patient has apparently scheduled for a CT chest PE protocol. No pleural effusion. No pneumothorax. IMPRESSION Ardb-sl-ciiryxyg cardiac silhouette enlargement and suspicion of some vascular congestion and interstitial edema centrally. Of note, I have no comparison chest film and some of these changes could be chronic. No pleural effusion, pneumothorax or focal alveolar infiltrate is appreciated. Dictated by... Frida Silveira M.D. THIS IS AN ELECTRONICALLY VERIFIED REPORT Frida Silveira M.D. at 02/04/2017 7:57 AM SWAPNA/mamta TD: 02/04/2017 01:10 JOB #: [id number] [facility] A Service of [facility] RADIOLOGY TEXT RESULTS PATIENT: JOSUE RODRÍGUEZ LOCATION: [facility] CICCU3-18 : [birth year] UNIT #: [id number] AGE: [address]: Morenita Caballero MD SEX: M ORDER DR: MEDICAL IMAGING REPORT Page 1 of 1 COPY
--- NOTE | ~2017-02-03 | CR72 ---
[facility] A Service of [facility] & [facility] RADIOLOGY TEXT RESULTS PATIENT: JOSUE RODRÍGUEZ [facility] [birth year] UNIT #: [id number] AGE: [address]: Morenita Caballero MD SEX: M ORDER DR: [id number] [facility] [address] [facility] [place], [place] [address] [id number] I MR#: [id number] Acc #: [id number] NAME: JOSUE RODRÍGUEZ : 1955 SEX: M STUDY DATE/TIME: 02/08/2017 13:38 [facility] ROOM: [facility] STUDY DESCRIPTION: CR Chest Single View Portable Attending Physician: Morenita Caballero M.D. Ordering Physician: Jeffery Pineda Primary Care Physician: Primary Care Physician No MEDICAL IMAGING REPORT This report is preliminary unless electronic signature is present EXAM Portable chest x-ray HISTORY Endo trach placement TECHNIQUE AP radiograph of the chest is presented. FINDINGS Endotracheal tube terminates 4.1 cm above juanito. The flexible feeding tube has been advanced to a level approximately 8 cm below diaphragm terminating near the junction of proximal and middle thirds of stomach. Stable cardiac enlargement. Pulmonary vascular congestion persists. Increased central interstitial and peribronchial markings. No change. Some patchy infrahilar airspace densities. No change. Appearance probably reflects mild central edema. Components of bronchitis could be present. There is no dense airspace disease, pleural effusion or pneumothorax clearly seen. No suspicious nodule. Dictated by... Eduardo Rodriguez M.D. THIS IS AN ELECTRONICALLY VERIFIED REPORT Eduardo Rodriguez M.D. at 02/08/2017 10:46 PM JSK/to TD: 02/08/2017 20:59 JOB #: [id number] MEDICAL IMAGING REPORT [facility] A Service of [facility] & [facility] RADIOLOGY TEXT RESULTS PATIENT: JOSUE RODRÍGUEZ [facility]ATION: [facility] : [birth year] UNIT #: [id number] AGE: [address]: Morenita Caballero MD SEX: M ORDER DR: Page 1 of 1 COPY
--- NOTE | ~2017-02-03 | CR71 ---
[facility] A Service of [facility] & [facility] RADIOLOGY TEXT RESULTS PATIENT: JOSUE RODRÍGUEZ LOCATION: [address] : [birth year] UNIT #: [id number] AGE: [address]: Morenita Caballero MD SEX: M ORDER DR: [id number] [facility] [address]. [place], [place] [address] [id number] I MR#: [id number] Acc #: [id number] NAME: JOSUE RODRÍGUEZ : 1955 SEX: M STUDY DATE/TIME: 02/22/2017 6:12 UNIT: [facility] ROOM: [facility] STUDY DESCRIPTION: CR Chest Single View Attending Physician: Morenita Caballero M.D. Ordering Physician: Matias Michaud M.D. Primary Care Physician: No Primary Care Physician MEDICAL IMAGING REPORT This report is preliminary unless electronic signature is present EXAM Portable chest INDICATION Congestion, shortness of air, follow-up central venous catheter and infiltrates. FINDINGS This portable view of the chest shows no change in very faint bilateral interstitial infiltrates. The Dobbhoff tube, PIC catheter and pacemaker are all in good position. IMPRESSION No change in faint interstitial prominence or infiltrates and the pacemaker and central venous catheter are in good position. Dobbhoff tube has its tip below the diaphragm. Dictated by... Justin Zhang M.D. THIS IS AN ELECTRONICALLY VERIFIED REPORT Justin Zhang M.D. at 02/22/2017 12:24 PM YANDY/franko TD: 02/22/2017 10:45 JOB #: [id number] MEDICAL IMAGING REPORT Page 1 of 1 COPY
--- NOTE | ~2017-02-03 | CR72 ---
[facility] A Service of [facility] RADIOLOGY TEXT RESULTS PATIENT: JOSUE RODRÍGUEZ LOCATION: [address]18 : [birth year] UNIT #: [id number] AGE: [address]: Morenita Caballero MD SEX: M ORDER DR: [id number] [facility] [address] [place], [place] [address] [id number] I MR#: [id number] Acc #: [id number] NAME: JOSUE RODRÍGUEZ : 1955 SEX: M STUDY DATE/TIME: 02/13/2017 2:30 UNIT: [facility] ROOM: [facility] STUDY DESCRIPTION: CR Chest Single View Portable Attending Physician: Morenita Caballero M.D. Ordering Physician: Matias Michaud M.D. Primary Care Physician: No Primary Care Physician MEDICAL IMAGING REPORT This report is preliminary unless electronic signature is present EXAM AP portable chest, 02/13/2017. HISTORY 61-year-old male with respiratory failure. Symptoms present since 02/11/2017. Additional history of atrial fibrillation and hypertension. Coronary artery disease. Previous smoking history. COMPARISON AP portable chest, 02/12/2017. FINDINGS Stable cardiac enlargement. ET tube tip projects about 1.8 cm above the juanito. Enteric feeding tube extends below the diaphragm with its tip not included in field of view. Right IJ central line extends to the mid SVC. The scattered airspace disease changes in both lungs appears improved. The retrocardiac left lower lobe consolidation appears largely resolved. No pleural effusion or pneumothorax. IMPRESSION 1. Resolution of left basilar retrocardiac consolidation. Ill-defined scattered airspace disease changes of both lungs appear improved, as well. Dictated by... Torie Jackson M.D. THIS IS AN ELECTRONICALLY VERIFIED REPORT Torie Jackson M.D. at 02/13/2017 9:55 PM OUSMANE/lisandra TD: 02/13/2017 06:05 [facility] A Service of [facility] RADIOLOGY TEXT RESULTS PATIENT: JOSUE RODRÍGUEZ LOCATION: [facility] CICCU3-18 : 55 UNIT #: [id number] AGE: [address]: Morenita Caballero MD SEX: M ORDER DR: JOB #: [id number] MEDICAL IMAGING REPORT Page 1 of 1 COPY
--- NOTE | ~2017-02-03 | EKG ---
PATIENT: JOSUE RODRÍGUEZ UNIT #: [id number] Ventricular Rate: 114 BPM Atrial Rate: 120 BPM QRS Duration: 96 ms Q-T Interval: 308 ms QTC Calculation(Bezet): 424 ms P [place]: 57 degrees Calculated R [place]: 74 degrees Calculated T [place]: -97 degrees Diagnosis Line: Atrial fibrillation Diagnosis Line: Left ventricular hypertrophy with repolarization Diagnosis Line: abnormality Diagnosis Line: Abnormal ECG Diagnosis Line: When compared with ECG of 08-FEB-2017 14:39, Diagnosis Line: (unconfirmed) Diagnosis Line: ST no longer elevated in Anterior leads Diagnosis Line: T wave inversion more evident in Inferior leads Diagnosis Line: T wave inversion now evident in Anterior leads Diagnosis Line: T wave inversion less evident in Lateral leads Diagnosis Line: Confirmed by ANTOINETTE BOWIE MD ([id number]) on 02/13/2017 Diagnosis Line: 7:37:18 AM INTERPRETING MD: JAMIR TEAGUE
--- NOTE | ~2017-02-03 | MR134 ---
[facility] A Service of [facility] RADIOLOGY TEXT RESULTS PATIENT: JOSUE RODRÍGUEZ LOCATION: [place] [address]-18 : 55 UNIT #: [id number] AGE: [address]: Morenita Caballero MD SEX: M ORDER DR: [id number] [facility] [address]. [place], [place] [address] [id number] I MR#: [id number] Acc #: [id number] NAME: JOSUE RODRÍGUEZ : 1955 SEX: M STUDY DATE/TIME: 02/12/2017 20:44 UNIT: [facility] ROOM: [facility] STUDY DESCRIPTION: MR MRA Neck Wo Contrast Attending Physician: Morenita Caballero M.D. Ordering Physician: Alexandria Puri A.P.R.N. Primary Care Physician: Primary Care Physician No MRI CENTER REPORT This report is preliminary unless electronic signature is present. EXAM MR angiogram of the neck without contrast HISTORY Left side weakness for 3 days. Decreased level of consciousness. FINDINGS MRI of the neck was performed without contrast. Exam sensitivity is limited by motion. The common carotid and internal and external cervical carotid arteries are patent bilaterally, and no stenosis is identified but motion limits sensitivity. In the carotid bulbs and proximal internal carotid arteries, no hemodynamically significant stenosis is identified, by NASCET criteria. Both vertebral arteries are patent. IMPRESSION 1. No significant stenosis is identified but exam sensitivity is quite limited by patient motion. The common carotid arteries and carotid bulbs and the cervical internal carotid arteries are patent bilaterally. 2. Both vertebral arteries are patent. Dictated by... Zaid Queen M.D. THIS IS AN ELECTRONICALLY VERIFIED REPORT Zaid Queen M.D. at 02/13/2017 3:19 PM CARLOS EDUARDO/mamta TD: 02/13/2017 00:47 JOB #: [id number] [facility] A Service of [facility] RADIOLOGY TEXT RESULTS PATIENT: JOSUE RODRÍGUEZ [id number] : 55 UNIT #: [id number] AGE: [address]: Morenita Caballero MD SEX: M ORDER DR: MRI CENTER REPORT Page 1 of 1 COPY
--- NOTE | ~2017-02-03 | A ---
[facility] Nutrition Therapy DATE: 02/08/17 Patient: JOSUE RODRÍGUEZ Physician: ATTPRE Address: [address] [place] [address] Room/Bed: [address], Zip: [place] [address] Admit Date: 02/03/17 Date of : [birth year] Height: 5 11 Weight: 187 85 NUTRITIONAL ASSESSMENT: REASON: Enteral nutrition recommendations per MD Admitting dx: 61 y/o male admitted with acute NSTEMI, s/p stents x 3 PMH: CAD, smoker, depression, ?ETOH/substance abuse? Anthropometrics: Ht: 71", admission wt: 86.1 kg, current wt: 85 kg, BMI: 27 (overweight) Labs: K+ 3.1, glucose 167, BUN 28, AST 58, lipid panel WNL Meds: Therapeutic formula, thiamine, folic acid, D5, PPI, loperamide, phenergan/zofran, mag-ox, ativan, IV Abx, lasix, IVF decreased to 50 ml/hr I/O & Bowel function: BM 02/08, DHT in place Skin Integrity: Nothing significant, no edema documented Estimated Nutrition Needs: 4330-7395 kcals/day (20-25 kcals/kg CBW) ~85 g protein/day (1.0 g/kg CBW) Fluids per MD Assessment: Chart reviewed, events noted. Pt transferred back to ICU yesterday due to agitation, delirium and confusion. Dr. Navarro following, pt currently on 2L nasal cannula in restraints, receiving Ativan. Has healthy heart diet ordered however nursing states he has been NPO since transferred back to ICU yesterday. He has newly diagnosed CAD and is s/p 3 stents. Has DHT in place for meds, MD requesting to start EN per RD recs. He is on CIWA protocol, no H&P available for review, info obtained from consults in [facility] which did not clearly state drug/ETOH hx. See RD recs below, will enter EN order and follow to assess tolerance. Dx: Inadequate energy intake r/t nutrition not yet initiated AEB NPO x 2 days, need for EN. Intervention: EN recs as stated below Monitoring, Evaluation and Goals: 1. EN consistent with estimated nutritional needs. 2. Glucose, lytes WNL. [facility] Nutrition Therapy DATE: 02/08/17 Patient: JOSUE RODRÍGUEZ Physician: ATTPRE Address: [address] [place] [address] Room/Bed: [address], Zip: [place] [address] Admit Date: 02/03/17 Date of : [birth year] Height: 5 11 Weight: 187 85 Monitor: per protocol, criteria to determine if above goals met Recommendations: 1. Begin enteral nutrition via DHT with Jevity 1.5 @ 25 ml/hr and increase by 10 ml q 6 hours until goal rate of 55 ml/hr is reached, to provide 1320 ml, 1980 kcals, 84 g protein and 1003 ml water. Once at goal rate add free water flushes per MD. 2. Replace lytes prn (K+ low). Continue vitamins. 3. Once appropriate suggest [employer] OPERATOR eval to determine safety of PO intake + healthy heart restriction. RD will follow Moderate nutrition risk Respectfully, Juli Pérez, AFSANEH, LD [facility] cc: client file
--- NOTE | ~2017-02-03 | CR72 ---
[facility] A Service of [facility] & [facility] RADIOLOGY TEXT RESULTS PATIENT: JOSUE RODRÍGUEZ LOCATION: [address] : [birth year] UNIT #: [id number] AGE: [address]: Morenita Caballero MD SEX: M ORDER DR: [id number] [facility] [address] [facility]. [place], [place] [address] [id number] I MR#: [id number] Acc #: [id number] NAME: JOSUE RODRÍGUEZ : 1955 SEX: M STUDY DATE/TIME: 02/21/2017 7:58 UNIT: [facility] ROOM: [facility] STUDY DESCRIPTION: CR Chest Single View Portable Attending Physician: Morenita Caballero M.D. Ordering Physician: Morenita Caballero M.D. Primary Care Physician: No Primary Care Physician MEDICAL IMAGING REPORT This report is preliminary unless electronic signature is present EXAM AP portable chest, dated 02/21/2017 at 07:58. HISTORY Shortness of breath with respiratory failure for 1 month. Smoking history. Atrial fibrillation. History of coronary stent placements. COMPARISON AP portable chest 02/20/2017. FINDINGS Diffuse interstitial and alveolar disease changes are present within both lungs, allowing for differences in positioning, the findings are not thought to be significantly changed compared to yesterday's exam. There is stable cardiac enlargement. Presumed right neck approach transvenous electrode tip or lead projects at the right ventricular level. Dobbhoff tube extends into the ewddttid-qc-tmd gastric body region. No visible pneumothorax. IMPRESSION 1. Diffuse interstitial and alveolar infiltrates appear unchanged compared to yesterday's study, allowing for slight differences in positioning and technique. 2. The enteric tube has been advanced, and now lies in the ndxiyneo-dc-vwz gastric body region, compared to 02/20/2017 at 14:29. 3. Stable cardiac enlargement. Dictated by... Torie Jackson M.D. THIS IS AN ELECTRONICALLY VERIFIED REPORT Torie Jackson M.D. at 02/22/2017 2:02 PM LLH/gz STS. [facility] A Service of [facility] & [facility] RADIOLOGY TEXT RESULTS PATIENT: JOSUE RODRÍGUEZ LOCATION: [address] : [birth year] UNIT #: [id number] AGE: [address]: Morenita Caballero MD SEX: M ORDER DR: TD: 02/21/2017 11:28 JOB #: [id number] MEDICAL IMAGING REPORT Page 1 of 1 COPY
--- NOTE | ~2017-02-03 | CR6 ---
[facility] A Service of [facility] & [facility] RADIOLOGY TEXT RESULTS PATIENT: JOSUE RODRÍGUEZ LOCATION: [address] : [birth year] UNIT #: [id number] AGE: [address]: Morenita Caballero MD SEX: M ORDER DR: [id number] [facility] [address]. [place], [place] [address] [id number] I MR#: [id number] Acc #: [id number] NAME: JOSUE RODRÍGUEZ : 1955 SEX: M STUDY DATE/TIME: 02/07/2017 23:36 UNIT: [facility] ROOM: [facility] STUDY DESCRIPTION: CR Abdomen Portable Sng View Attending Physician: Morenita Caballero M.D. Ordering Physician: Morenita Caballero M.D. Primary Care Physician: Primary Care Physician No MEDICAL IMAGING REPORT This report is preliminary unless electronic signature is present EXAM KUB, 02/07 2336 hours INDICATIONS Dobbhoff placement tonight. FINDINGS Supine view of the abdomen was obtained. Tip of a flexible feeding tube is present in the fundus of the stomach. Consider advancing the tube 5-10 cm. Dictated by... Marlon Urrutia Jr., M.D. THIS IS AN ELECTRONICALLY VERIFIED REPORT Marlon Urrutia Jr., M.D. at 02/08/2017 6:53 AM NANCY/mark TD: 02/08/2017 00:40 JOB #: [id number] MEDICAL IMAGING REPORT Page 1 of 1 COPY
--- NOTE | ~2017-02-03 | EKG ---
PATIENT: JOSUE RODRÍGUEZ UNIT #: [id number] Ventricular Rate: 96 BPM Atrial Rate: 74 BPM QRS Duration: 92 ms Q-T Interval: 372 ms QTC Calculation(Bezet): 469 ms Calculated R [place]: 47 degrees Calculated T [place]: 178 degrees Diagnosis Line: Atrial fibrillation Diagnosis Line: Left ventricular hypertrophy Diagnosis Line: ST and T wave abnormality, consider inferolateral Diagnosis Line: ischemia or digitalis effect Diagnosis Line: Prolonged QT Diagnosis Line: Abnormal ECG Diagnosis Line: When compared with ECG of 09-FEB-2017 06:04, Diagnosis Line: (unconfirmed) Diagnosis Line: Atrial fibrillation has replaced Sinus rhythm Diagnosis Line: T wave inversion less evident in Inferior leads Diagnosis Line: T wave inversion more evident in Lateral leads Diagnosis Line: Confirmed by ANTOINETTE BOWIE MD ([id number]) on 02/13/2017 Diagnosis Line: 7:43:52 AM INTERPRETING MD: JAMIR TEAGUE
--- NOTE | ~2017-02-03 | CR72 ---
[facility] A Service of [facility] & [facility] RADIOLOGY TEXT RESULTS PATIENT: JOSUE RODRÍGUEZ LOCATION: [address] : [birth year] UNIT #: [id number] AGE: [address]: Morenita Caballero MD SEX: M ORDER DR: [id number] [facility] [address] [facility]. [place], [place] [address] [id number] I MR#: [id number] Acc #: [id number] NAME: JOSUE RODRÍGUEZ : 1955 SEX: M STUDY DATE/TIME: 02/24/2017 03:28 UNIT: [facility] ROOM: [facility] STUDY DESCRIPTION: CR Chest Single View Portable Attending Physician: Morenita Caballero M.D. Ordering Physician: Morenita Caballero M.D. Primary Care Physician: Primary Care Physician No MEDICAL IMAGING REPORT This report is preliminary unless electronic signature is present EXAM Portable chest, 02/24/2017 at 03:28 INDICATION Shortness of air. Tube placement. FINDINGS AP portable chest compared with 02/23/2017. Feeding tube is at the level of the mid esophagus just below the juanito. Cardiomegaly is stable. There is increased pleural fluid on the right with increasing infiltrate or atelectasis at the right base. Right arm PICC has its tip in the right atrial level. No pneumothorax. Dictated by... Marlon Urrutia Jr., M.D. THIS IS AN ELECTRONICALLY VERIFIED REPORT Marlon Urrutia Jr., M.D. at 02/25/2017 3:14 AM NANCY/mamta TD: 02/24/2017 21:43 JOB #: [id number] MEDICAL IMAGING REPORT Page 1 of 1 COPY
--- NOTE | ~2017-02-03 | FU ---
[facility] DATE: 02/27/17 Patient: JOSUE RODRÍGUEZ Physician: ATTPRE Address: [address] [place] [address] Room/Bed: [address] [place] [address], Zip: [place] [address] Admit Date: 02/03/17 Date of : 55 Height: 5 11 Weight: 178 81 NUTRITION MONITORING/FOLLOW-UP: Reason: PT SEEN FOR FOLLOW-UP DX: ACUTE NSTEMI Anthropometrics: 5'11", WT: 178# (81 KG), BMI: 24.8 Labs: GLU: 135, BUN: 42, CA+:8.2, ALB: 2.5, AST: 76, ALT: 93 Meds: SOLU-MEDROL, PROTONIX, KCL, LOPRESSOR, NOVOLOG, PHENERGAN, LIPITOR, PREDNISONE I&O's: 1060/1600 Skin: PREVIOUSLY NOTED Assessment: CHART REVIEWED AND EVENTS NOTED. PT SEEN FOR FOLLOW-UP. PT REPORTS APPETITE SLOWLY IMPROVING, NOTING CONSUMING ~50% OF BREAKFAST THIS AM. PT ADDS THAT HE IS TOLERATING PO INTAKE. OF NOTE, PT DISPLAYED A FLAT AFFECT AND NOTED TO BE DEPRESSED AT TIME OF VISIT. THIS RD ENCOURAGED ADEQUATE PO INTAKE, PT AGREED TO ENSURE PUDDING BID, RD WILL ORDER. PT REPORTED NO DIET QUESTIONS AT THIS TIME. RD WILL FOLLOW. SEE RECOMMENDATIONS BELOW. Dx: INADQUATE ORAL INTAKE R/T CURRENT CLINICAL CONDITION AEB NEED FOR EN, [employer] EVALUATION OF DIET ORDER.-RESOLVED NEW Dx: DECREASED NUTRIENT INTAKE R/T CURRENT CLINICAL CONDITION AEB PT REPORT ABOVE. GOALS: 1. ENTERAL NUTRITION CONSISTENT W/ESTIMATED NEEDS/PROVIDE >8)% GOAL VOLUME X 24 HOURS-RESOLVED 2. ORAL INTAKE; ADVANCE DIET PER [employer]EDER RECOMMENDATIONS WHEN APPROPRIATE-MET/RESOLVED 3. IMPROVE LABS; NA+, PHOS, GLU, CREAT-IN PROGRESS 4. ORAL INTAKE; CONSUME/TOLERATE >50% OF MEALS-MET MONITOR: -PO INTAKE/APPETITE -SUPPLELEMENT INTAKE RECOMMENDATIONS: 1. PLEASE ORDER [place] ENSURE PUDDING BID W/MEALS 2. CONTINUE TO OPTIMIZE BLOOD SUGAR CONTROL REGIMEN [facility] DATE: 02/27/17 Patient: JOSUE RODRÍGUEZ Physician: ATTPRE Address: [address] [place] [address] Room/Bed: [address] [place] [address], Zip: [place] [address] Admit Date: 02/03/17 Date of : 55 Height: 5 11 Weight: 178 81 3. CONTINUE TO ENCOURAGE ADEQUATE PO INTAKE 4. CONSIDER PSYCHOLOGIST CONSULT RE: FLAT AFFECT AND DEPRESSION RD WILL F/U PER PROTOCOL PT IS MILDLY COMPROMISED RESPECTFULLY, TAYA TUBBS MS, RD, LD [employer] [facility] [place] [facility] cc: client file
--- NOTE | ~2017-02-03 | CR72 ---
[facility] A Service of [facility] & [facility] RADIOLOGY TEXT RESULTS PATIENT: JOSUE RODRÍGUEZ LOCATION: [facility] [id number] : 55 UNIT #: [id number] AGE: [address]: Morenita Caballero MD SEX: M ORDER DR: [id number] [place] [id number] [facility]. [place], [place] [address] [id number] I MR#: [id number] Acc #: [id number] NAME: JOSUE RODRÍGUEZ : 1955 SEX: M STUDY DATE/TIME: 02/25/2017 5:43 UNIT: [facility] ROOM: [facility] STUDY DESCRIPTION: CR Chest Single View Portable Attending Physician: Morenita Caballero M.D. Ordering Physician: Rick Hernandes M.D. Primary Care Physician: No Primary Care Physician MEDICAL IMAGING REPORT This report is preliminary unless electronic signature is present EXAM Portable AP view of the chest COMPARISON February 24, 2017, February 23, 2017, February 22, 2017. INDICATIONS 61-year-old male with respiratory failure for 22 days after an acute myocardial infarction and stent placement. History of hypertension and atrial fibrillation. FINDINGS AND IMPRESSION Feeding tube has been advanced, the tip of which is not seen. The tip is at least within the stomach. Right arm PICC is again noted with the tip terminating near the cavoatrial junction. Cardiomegaly is grossly stable. There is improved right basilar atelectasis and/or small right pleural effusion. No current evidence of pleural effusion, pneumothorax or acute airspace disease. There is mild stable pulmonary vascular congestion. Dictated by... Terence Borden M.D. THIS IS AN ELECTRONICALLY VERIFIED REPORT Terence Borden M.D. at 02/28/2017 10:37 PM BLM/df TD: 02/25/2017 08:17 JOB #: [id number] MEDICAL IMAGING REPORT Page 1 of 1 COPY
--- NOTE | ~2017-02-03 | CR7 ---
[facility] A Service of [facility] & [facility] RADIOLOGY TEXT RESULTS PATIENT: JOSUE RODRÍGUEZ LOCATION: [address] 548[address]01 : 55 UNIT #: [id number] AGE: [address]: Morenita Caballero MD SEX: M ORDER DR: [id number] [facility] [address] [facility]. [place], [place] [address] [id number] I MR#: [id number] Acc #: [id number] NAME: JOSUE RODRÍGUEZ : 1955 SEX: M STUDY DATE/TIME: 03/02/2017 8:08 UNIT: [facility] ROOM: [facility] STUDY DESCRIPTION: CR Abdomen Single AP View Attending Physician: Morenita Caballero M.D. Ordering Physician: Gasper Payne M.D. Primary Care Physician: Primary Care Physician No MEDICAL IMAGING REPORT This report is preliminary unless electronic signature is present EXAM AP view of the abdomen COMPARISON February 25, 2017 and February 24, 2017 INDICATION 61-year-old male with diffuse abdominal pain for 3 days. FINDINGS The right abdomen is minimally excluded from field of view. Residual contrast versus barium seen throughout the colon. There is a calcium density in the right pelvis consistent with a phlebolith seen on CT of February 14, 2017. There is a single gas-distended small bowel loop in the left upper quadrant of the abdomen which has upper limits of normal caliber measuring 3.1 cm. This is actually improved from five days ago and there has been reduction of the number of gas distended small bowel loops since that time in the upper abdomen. IMPRESSION Single mildly distended small bowel loop in the left upper quadrant of the abdomen measuring up to 3.1 cm. This has diminished in caliber from five days ago and there is overall diminished number of gas distended bowel loops. Findings may reflect resolving ileus, less likely resolving mechanical obstruction. There is residual barium versus contrast seen in the colon as compared to five days ago suggesting bowel stasis. Dictated by... Terence Borden M.D. THIS IS AN ELECTRONICALLY VERIFIED REPORT Terence Borden M.D. at 03/07/2017 6:31 PM WILVER/juan c [facility]. [facility] A Service of [facility] & [facility] RADIOLOGY TEXT RESULTS PATIENT: JOSUE RODRÍGUEZ LOCATION: [address] [id number] : 55 UNIT #: [id number] AGE: [address]: Morenita Caballero MD SEX: M ORDER DR: TD: 03/02/2017 13:30 JOB #: [id number] MEDICAL IMAGING REPORT Page 1 of 1 COPY
--- NOTE | ~2017-02-03 | EKG ---
PATIENT: JOSUE RODRÍGUEZ UNIT #: [id number] Ventricular Rate: 97 BPM Atrial Rate: 102 BPM QRS Duration: 94 ms Q-T Interval: 356 ms QTC Calculation(Bezet): 452 ms Calculated R [place]: 73 degrees Calculated T [place]: -56 degrees Diagnosis Line: Atrial fibrillation Diagnosis Line: Left ventricular hypertrophy Diagnosis Line: ST and T wave abnormality, consider inferolateral Diagnosis Line: ischemia or digitalis effect Diagnosis Line: Abnormal ECG Diagnosis Line: When compared with ECG of 05-FEB-2017 05:50, Diagnosis Line: (unconfirmed) Diagnosis Line: Vent. rate has increased BY 35 BPM Diagnosis Line: ST less elevated in Anterior leads Diagnosis Line: Inverted T waves have replaced nonspecific T wave Diagnosis Line: abnormality in Inferior leads Diagnosis Line: Confirmed by ORQUIDEA PAULSON MD ([id number]) on Diagnosis Line: 02/07/2017 7:12:51 AM INTERPRETING SHEEBA GILLIS
--- NOTE | ~2017-02-03 | EKG ---
PATIENT: JOSUE RODRÍGUEZ UNIT #: [id number] Ventricular Rate: 62 BPM Atrial Rate: 64 BPM QRS Duration: 102 ms Q-T Interval: 424 ms QTC Calculation(Bezet): 430 ms Calculated R [place]: 61 degrees Calculated T [place]: 68 degrees Diagnosis Line: Atrial fibrillation Diagnosis Line: Left ventricular hypertrophy Diagnosis Line: ST elevation, consider early repolarization, Diagnosis Line: pericarditis, or injury Diagnosis Line: T wave abnormality, consider lateral ischemia or Diagnosis Line: digitalis effect Diagnosis Line: Abnormal ECG Diagnosis Line: When compared with ECG of 04-FEB-2017 11:29, Diagnosis Line: No significant change was found Diagnosis Line: Confirmed by ORQUIDEA PAULSON MD ([id number]) on Diagnosis Line: 02/07/2017 7:08:31 AM INTERPRETING : CARLIN
[2017-02-03 14:50] LABS: BASOPHIL% 0.5 % (0-2.5); EOSINOPHIL# 0.1 X10e3 (0-0.7); EOSINOPHIL% 1.2 % (0.0-7.0); HEMATOCRIT 45.4 % (38.0-50.0); HEMOGLOBIN 15.5 gm/dL (13.0-16.0); LYMPHOCYTE# 2.2 X10e3 (1.0-3.5); LYMPHOCYTE% 29.8 % (17.0-45.0); MEAN CELL VOLUME 90.5 FL (83-96); MEAN CORPUSCULAR HEMOGLOBIN 30.8 PG (28-34); MEAN CORPUSCULAR HGB CONC 34.1 g/dL (30-36); MEAN PLATELET VOLUME 7.3 FL (6.5-11.5); MONOCYTE# 0.9 X10e3 (0-1.0); MONOCYTE% 11.8 % (3.0-12.0); NEUTROPHIL# 4.3 X10e3 (1.5-7.1); NEUTROPHIL% 56.7 % (40-75); PLATELET COUNT 251 X10e3 (140-420); RED BLOOD COUNT 5.01 X10e (3.90-5.60); RED CELL DISTRIBUTION WIDTH 13.8 % (11.0-15.5); WHITE BLOOD COUNT 7.5 X10e3 (4.0-10.5)
[2017-02-03 14:53] LABS: POC - CKMB 40.4 ng/mL (0.0-7.9); POC - TROPONIN 10.2 ng/mL (<=0.05)
[2017-02-03 14:55] LABS: DIFF IND NO
[2017-02-03 15:12] LABS: PROTHROMBIN TIME (PATIENT) 10.6 SECONDS (10.0-11.7)
[2017-02-03 15:17] LABS: ALBUMIN SERUM 4.5 g/dL (3.5-5.0); BILIRUBIN, DIRECT 0.3 mg/dL (0.0-0.2); BILIRUBIN,TOTAL 1.3 mg/dL (0.2-2.0); BUN/CREATININE RATIO 14.16; CALCIUM SERUM 9.4 mg/dL (8.4-10.2); CREATININE SERUM 1.2 mg/dL (0.6-1.4); GLOM FILT RATE Estimated 75.2 mL/min (>60); MAGNESIUM 1.8 mg/dL (1.6-3.0); PROTEIN TOTAL SERUM 8.4 g/dL (6.0-8.3)
[2017-02-03 15:18] LABS: POTASSIUM 2.9 mmol/L (3.5-5.1)
[2017-02-03 17:46] LABS: POC - CKMB 24.8 ng/mL (0.0-7.9); POC - TROPONIN 7.68 ng/mL (<=0.05)
[2017-02-04 00:47] LABS: BASOPHIL% 0.2 % (0-2.5); HEMATOCRIT 43.7 % (38.0-50.0); HEMOGLOBIN 14.6 gm/dL (13.0-16.0); LYMPHOCYTE# 1.9 X10e3 (1.0-3.5); LYMPHOCYTE% 15.3 % (17.0-45.0); MEAN CORPUSCULAR HEMOGLOBIN 30.7 PG (28-34); MEAN CORPUSCULAR HGB CONC 33.3 g/dL (30-36); MEAN PLATELET VOLUME 7.8 FL (6.5-11.5); MONOCYTE# 1.6 X10e3 (0-1.0); NEUTROPHIL# 8.9 X10e3 (1.5-7.1); NEUTROPHIL% 71.5 % (40-75); PLATELET COUNT 238 X10e3 (140-420); RED BLOOD COUNT 4.76 X10e (3.90-5.60); RED CELL DISTRIBUTION WIDTH 13.5 % (11.0-15.5)
[2017-02-04 00:54] LABS: DIFF IND NO; WHITE BLOOD COUNT 12.5 X10e3 (4.0-10.5)
[2017-02-04 05:55] LABS: BASOPHIL% 0.4 % (0-2.5); EOSINOPHIL% 0.1 % (0.0-7.0); HEMATOCRIT 40.6 % (38.0-50.0); HEMOGLOBIN 13.4 gm/dL (13.0-16.0); LYMPHOCYTE# 1.9 X10e3 (1.0-3.5); LYMPHOCYTE% 16.8 % (17.0-45.0); MEAN PLATELET VOLUME 7.5 FL (6.5-11.5); MONOCYTE# 1.6 X10e3 (0-1.0); MONOCYTE% 14.2 % (3.0-12.0); NEUTROPHIL# 7.8 X10e3 (1.5-7.1); NEUTROPHIL% 68.5 % (40-75); PLATELET COUNT 230 X10e3 (140-420); RED BLOOD COUNT 4.46 X10e (3.90-5.60); WHITE BLOOD COUNT 11.3 X10e3 (4.0-10.5)
[2017-02-04 06:01] LABS: DIFF IND NO
[2017-02-04 06:09] LABS: PARTIAL THROMBOPLASTIN TIME 51.8 SECONDS (23.5-31.3); PROTHROMBIN TIME (PATIENT) 11.3 SECONDS (10.0-11.7)
[2017-02-04 06:33] LABS: ALBUMIN SERUM 3.7 g/dL (3.5-5.0); BILIRUBIN,TOTAL 2.2 mg/dL (0.2-2.0); BUN/CREATININE RATIO 16.15; CALCIUM SERUM 8.7 mg/dL (8.4-10.2); CREATININE SERUM 1.3 mg/dL (0.6-1.4); GLOM FILT RATE Estimated 68.3 mL/min (>60); PROTEIN TOTAL SERUM 6.8 g/dL (6.0-8.3)
[2017-02-04 18:42] LABS: ANGIO %MB 3.8 % (0.0-4.0)
[2017-02-05 05:20] LABS: BASOPHIL% 0.2 % (0-2.5); EOSINOPHIL# 0.1 X10e3 (0-0.7); EOSINOPHIL% 0.6 % (0.0-7.0); HEMATOCRIT 34.4 % (38.0-50.0); HEMOGLOBIN 11.9 gm/dL (13.0-16.0); LYMPHOCYTE# 1.9 X10e3 (1.0-3.5); LYMPHOCYTE% 15.8 % (17.0-45.0); MEAN CELL VOLUME 90.3 FL (83-96); MEAN CORPUSCULAR HEMOGLOBIN 31.2 PG (28-34); MEAN CORPUSCULAR HGB CONC 34.5 g/dL (30-36); MEAN PLATELET VOLUME 7.6 FL (6.5-11.5); MONOCYTE# 1.5 X10e3 (0-1.0); MONOCYTE% 12.9 % (3.0-12.0); NEUTROPHIL# 8.3 X10e3 (1.5-7.1); NEUTROPHIL% 70.5 % (40-75); PLATELET COUNT 226 X10e3 (140-420); RED BLOOD COUNT 3.81 X10e (3.90-5.60); RED CELL DISTRIBUTION WIDTH 13.5 % (11.0-15.5); WHITE BLOOD COUNT 11.8 X10e3 (4.0-10.5)
[2017-02-05 05:27] LABS: DIFF IND NO
[2017-02-05 05:59] LABS: BUN/CREATININE RATIO 20.66; CALCIUM SERUM 8.6 mg/dL (8.4-10.2); CREATININE SERUM 1.5 mg/dL (0.6-1.4); GLOM FILT RATE Estimated 57.4 mL/min (>60); POTASSIUM 3.8 mmol/L (3.5-5.1)
[2017-02-05 06:15] LABS: ANGIO %MB 4.7 % (0.0-4.0); ANGIO MB 9.7 ng/ml
[2017-02-05 18:49] LABS: URINE SOURCE CLEAN CATCH
[2017-02-05 19:02] LABS: URINE APPEARANCE TURBID; URINE BILIRUBIN NEG (NEG); URINE BLOOD 3+ (NEG); URINE COLOR DK YELLOW; URINE GLUCOSE NEG (NEG); URINE KETONE NEG (NEG); URINE LEUKOCYTE ESTERASE NEG (NEG); URINE NITRATE NEG (NEG); URINE PROTEIN 2+ (NEG); URINE SPECIFIC GRAVITY 1.031 (1.003-1.035)
[2017-02-05 19:03] LABS: U HYALINE CASTS AUWI 0-2 /[LPF]; URBCS1 AUWI 50-100 /[HPF] (0-2); URINE BACTERIA AUWI NEG (NEGATIVE); URINE SQUAMOUS EPITHELIAL CELL NONE SEEN /[HPF]
[2017-02-06 06:35] LABS: BASOPHIL% 0.2 % (0-2.5); EOSINOPHIL% 0.2 % (0.0-7.0); HEMATOCRIT 36.8 % (38.0-50.0); HEMOGLOBIN 12.5 gm/dL (13.0-16.0); LYMPHOCYTE# 0.9 X10e3 (1.0-3.5); LYMPHOCYTE% 10.4 % (17.0-45.0); MEAN CELL VOLUME 90.7 FL (83-96); MEAN CORPUSCULAR HEMOGLOBIN 30.8 PG (28-34); MONOCYTE# 0.9 X10e3 (0-1.0); MONOCYTE% 10.4 % (3.0-12.0); NEUTROPHIL# 7.2 X10e3 (1.5-7.1); NEUTROPHIL% 78.8 % (40-75); PLATELET COUNT 249 X10e3 (140-420); RED BLOOD COUNT 4.05 X10e (3.90-5.60); RED CELL DISTRIBUTION WIDTH 13.2 % (11.0-15.5); WHITE BLOOD COUNT 9.1 X10e3 (4.0-10.5)
[2017-02-06 06:45] LABS: BUN/CREATININE RATIO 23.63; CALCIUM SERUM 8.7 mg/dL (8.4-10.2); CREATININE SERUM 1.1 mg/dL (0.6-1.4); GLOM FILT RATE Estimated 83.5 mL/min (>60); POTASSIUM 3.5 mmol/L (3.5-5.1)
[2017-02-06 06:54] LABS: DIFF IND NO
[2017-02-07 08:51] LABS: BASOPHIL% 0.1 % (0-2.5); DIFF IND NO; EOSINOPHIL% 0.1 % (0.0-7.0); HEMATOCRIT 34.4 % (38.0-50.0); HEMOGLOBIN 12.1 gm/dL (13.0-16.0); LYMPHOCYTE# 0.5 X10e3 (1.0-3.5); LYMPHOCYTE% 5.8 % (17.0-45.0); MEAN CELL VOLUME 89.8 FL (83-96); MEAN CORPUSCULAR HEMOGLOBIN 31.6 PG (28-34); MEAN CORPUSCULAR HGB CONC 35.2 g/dL (30-36); MEAN PLATELET VOLUME 7.3 FL (6.5-11.5); MONOCYTE# 1.1 X10e3 (0-1.0); MONOCYTE% 11.2 % (3.0-12.0); NEUTROPHIL# 7.9 X10e3 (1.5-7.1); NEUTROPHIL% 82.8 % (40-75); PLATELET COUNT 330 X10e3 (140-420); RED BLOOD COUNT 3.83 X10e (3.90-5.60); RED CELL DISTRIBUTION WIDTH 13.7 % (11.0-15.5); WHITE BLOOD COUNT 9.5 X10e3 (4.0-10.5)
[2017-02-07 09:25] LABS: BUN/CREATININE RATIO 22.14; CALCIUM SERUM 8.8 mg/dL (8.4-10.2); CREATININE SERUM 1.4 mg/dL (0.6-1.4); GLOM FILT RATE Estimated 62.4 mL/min (>60); POTASSIUM 3.2 mmol/L (3.5-5.1)
[2017-02-07 10:15] LABS: ARTERIAL BLD GAS O2 SATURATION 94.6 % (90.0-100.0); ARTERIAL BLOOD GAS CARBOXY HB 0.8 %sat (0.0-9.0); ARTERIAL BLOOD GAS HCO3 23.5 mmol/L; ARTERIAL BLOOD GAS MET HB 0.4 %sat (0.0-2.0); ARTERIAL BLOOD GAS PCO2 27.7 mmHg (35.0-45.0); ARTERIAL BLOOD GAS pH 7.537 (7.350-7.450)
[2017-02-07 10:16] LABS: ARTERIAL BLOOD GAS ART SITE LEFT BRACHIAL; ARTERIAL BLOOD GAS PO2 72.1 mmHg (80.0-100); ARTERIAL DRAW? YES
[2017-02-08 05:28] LABS: BASOPHIL% 0.2 % (0-2.5); EOSINOPHIL% 0.3 % (0.0-7.0); HEMATOCRIT 33.3 % (38.0-50.0); HEMOGLOBIN 11.7 gm/dL (13.0-16.0); LYMPHOCYTE# 0.6 X10e3 (1.0-3.5); LYMPHOCYTE% 7.6 % (17.0-45.0); MEAN CELL VOLUME 90.3 FL (83-96); MEAN CORPUSCULAR HEMOGLOBIN 31.8 PG (28-34); MEAN CORPUSCULAR HGB CONC 35.2 g/dL (30-36); MEAN PLATELET VOLUME 7.2 FL (6.5-11.5); MONOCYTE% 13.3 % (3.0-12.0); NEUTROPHIL% 78.6 % (40-75); PLATELET COUNT 340 X10e3 (140-420); RED BLOOD COUNT 3.68 X10e (3.90-5.60); RED CELL DISTRIBUTION WIDTH 13.8 % (11.0-15.5); WHITE BLOOD COUNT 7.6 X10e3 (4.0-10.5)
[2017-02-08 05:33] LABS: DIFF IND NO
[2017-02-08 05:49] LABS: ALBUMIN SERUM 3.5 g/dL (3.5-5.0); BILIRUBIN,TOTAL 1.8 mg/dL (0.2-2.0); BUN/CREATININE RATIO 21.53; CALCIUM SERUM 8.7 mg/dL (8.4-10.2); CREATININE SERUM 1.3 mg/dL (0.6-1.4); GLOM FILT RATE Estimated 68.3 mL/min (>60); POTASSIUM 3.1 mmol/L (3.5-5.1); PROTEIN TOTAL SERUM 7.1 g/dL (6.0-8.3)
[2017-02-08 06:56] LABS: ARTERIAL BLD GAS O2 SATURATION 92.6 % (90.0-100.0); ARTERIAL BLOOD GAS CARBOXY HB 0.9 %sat (0.0-9.0); ARTERIAL BLOOD GAS HCO3 22.8 mmol/L; ARTERIAL BLOOD GAS MET HB 0.5 %sat (0.0-2.0); ARTERIAL BLOOD GAS PCO2 28.6 mmHg (35.0-45.0)
[2017-02-08 06:57] LABS: ARTERIAL BLOOD GAS ALLEN TEST NORMAL; ARTERIAL BLOOD GAS ART SITE RIGHT RADIAL; ARTERIAL BLOOD GAS DELIVERY NASAL CANNULA; ARTERIAL BLOOD GAS PO2 65.9 mmHg (80.0-100); ARTERIAL DRAW? YES
[2017-02-08 15:00] LABS: BASOPHIL% 0.3 % (0-2.5); EOSINOPHIL# 0.1 X10e3 (0-0.7); HEMATOCRIT 32.2 % (38.0-50.0); HEMOGLOBIN 11.1 gm/dL (13.0-16.0); LYMPHOCYTE# 0.6 X10e3 (1.0-3.5); LYMPHOCYTE% 7.8 % (17.0-45.0); MEAN CELL VOLUME 90.8 FL (83-96); MEAN CORPUSCULAR HEMOGLOBIN 31.3 PG (28-34); MEAN CORPUSCULAR HGB CONC 34.5 g/dL (30-36); MONOCYTE# 1.2 X10e3 (0-1.0); MONOCYTE% 14.9 % (3.0-12.0); NEUTROPHIL# 6.3 X10e3 (1.5-7.1); PLATELET COUNT 303 X10e3 (140-420); RED BLOOD COUNT 3.54 X10e (3.90-5.60); RED CELL DISTRIBUTION WIDTH 13.7 % (11.0-15.5); WHITE BLOOD COUNT 8.2 X10e3 (4.0-10.5)
[2017-02-08 15:01] LABS: DIFF IND NO
[2017-02-08 15:13] LABS: INR 1.1; PARTIAL THROMBOPLASTIN TIME 32.2 SECONDS (23.5-31.3)
[2017-02-08 15:34] LABS: BUN/CREATININE RATIO 23.07; CALCIUM SERUM 8.3 mg/dL (8.4-10.2); CREATININE SERUM 1.3 mg/dL (0.6-1.4); GLOM FILT RATE Estimated 68.3 mL/min (>60); MAGNESIUM 2.3 mg/dL (1.6-3.0)
[2017-02-08 16:09] LABS: ARTERIAL BLD GAS O2 SATURATION 98.8 % (90.0-100.0); ARTERIAL BLOOD GAS CARBOXY HB 0.4 %sat (0.0-9.0); ARTERIAL BLOOD GAS MET HB 0.7 %sat (0.0-2.0); ARTERIAL BLOOD GAS PCO2 36.3 mmHg (35.0-45.0)
[2017-02-08 16:10] LABS: ARTERIAL DRAW? YES
[2017-02-08 16:11] LABS: ARTERIAL BLOOD GAS ALLEN TEST NORMAL; ARTERIAL BLOOD GAS ART SITE RIGHT RADIAL; ARTERIAL BLOOD GAS DELIVERY VENT; ARTERIAL BLOOD GAS VENT MODE A/C
[2017-02-08 16:30] LABS: %MB 0.9 % (0.0-4.0); MB 5.2 ng/ml
[2017-02-08 20:33] LABS: URINE APPEARANCE CLOUDY; URINE BILIRUBIN NEG (NEG); URINE BLOOD 4+ (NEG); URINE COLOR RED; URINE GLUCOSE NORM (NORM); URINE KETONE NEG (NEG); URINE LEUKOCYTE ESTERASE 1+ (NEG); URINE NITRATE NEG (NEG); URINE PROTEIN 2+ (NEG); URINE SPECIFIC GRAVITY 1.015 (1.003-1.035); URINE UROBILINOGEN NORM (NORM)
[2017-02-08 20:40] LABS: URBCS1 AUWI 100-200 /[HPF] (0-2)
[2017-02-08 20:43] LABS: URINE BACTERIA AUWI NEG (NEGATIVE)
[2017-02-08 21:13] LABS: MB 4.7 ng/ml
[2017-02-09 03:54] LABS: ARTERIAL BLD GAS O2 SATURATION 97.9 % (90.0-100.0); ARTERIAL BLOOD GAS CARBOXY HB 0.4 %sat (0.0-9.0); ARTERIAL BLOOD GAS HCO3 22.2 mmol/L; ARTERIAL BLOOD GAS MET HB 0.5 %sat (0.0-2.0); ARTERIAL BLOOD GAS PCO2 32.6 mmHg (35.0-45.0); ARTERIAL BLOOD GAS pH 7.443 (7.350-7.450)
[2017-02-09 04:00] LABS: ARTERIAL BLOOD GAS ALLEN TEST NORMAL; ARTERIAL BLOOD GAS ART SITE LEFT RADIAL; ARTERIAL BLOOD GAS DELIVERY VENT; ARTERIAL BLOOD GAS VENT MODE AC; ARTERIAL DRAW? YES
[2017-02-09 04:36] LABS: BASOPHIL% 0.4 % (0-2.5); EOSINOPHIL# 0.2 X10e3 (0-0.7); EOSINOPHIL% 2.2 % (0.0-7.0); HEMATOCRIT 33.6 % (38.0-50.0); HEMOGLOBIN 11.4 gm/dL (13.0-16.0); LYMPHOCYTE% 11.6 % (17.0-45.0); MEAN CELL VOLUME 91.5 FL (83-96); MEAN CORPUSCULAR HGB CONC 33.9 g/dL (30-36); MEAN PLATELET VOLUME 7.1 FL (6.5-11.5); MONOCYTE# 1.1 X10e3 (0-1.0); MONOCYTE% 13.5 % (3.0-12.0); NEUTROPHIL# 6.1 X10e3 (1.5-7.1); NEUTROPHIL% 72.3 % (40-75); PLATELET COUNT 311 X10e3 (140-420); RED BLOOD COUNT 3.67 X10e (3.90-5.60); WHITE BLOOD COUNT 8.4 X10e3 (4.0-10.5)
[2017-02-09 04:39] LABS: DIFF IND NO
[2017-02-09 04:50] LABS: INR 1.1; PARTIAL THROMBOPLASTIN TIME 30.3 SECONDS (23.5-31.3); PROTHROMBIN TIME (PATIENT) 11.4 SECONDS (10.0-11.7)
[2017-02-09 05:07] LABS: BUN/CREATININE RATIO 19.33; CALCIUM SERUM 8.7 mg/dL (8.4-10.2); CREATININE SERUM 1.5 mg/dL (0.6-1.4); GLOM FILT RATE Estimated 57.4 mL/min (>60); POTASSIUM 3.7 mmol/L (3.5-5.1)
[2017-02-09 05:11] LABS: %MB 1.2 % (0.0-4.0); MB 4.3 ng/ml
[2017-02-09 13:12] LABS: AMPHETAMINE NEG (NEG); BARBITURATES NEG (NEG); BENZODIAZEPINES POS (NEG); COCAINE NEG (NEG); MARIJUANA NEG (NEG); OPIATES NEG (NEG); TRICYCLIC ANTIDEPRESSANTS NEG (NEG); U METHADONE NEG (NEG)
[2017-02-09 14:58] LABS: %MB 1.8 % (0.0-4.0); MB 4.3 ng/ml
[2017-02-09 17:41] LABS: THYROID STIMULATING HORMONE 0.81 uIU/ml (0.34-5.60)
[2017-02-09 17:46] LABS: FREE T3 2.5 pg/mL (2.5-3.9)
[2017-02-09 21:24] LABS: %MB 1.8 % (0.0-4.0); MB 3.7 ng/ml
[2017-02-10 01:59] LABS: BASOPHIL% 0.5 % (0-2.5); DIFF IND NO; EOSINOPHIL# 0.3 X10e3 (0-0.7); EOSINOPHIL% 3.2 % (0.0-7.0); HEMATOCRIT 31.6 % (38.0-50.0); HEMOGLOBIN 10.5 gm/dL (13.0-16.0); LYMPHOCYTE# 1.3 X10e3 (1.0-3.5); LYMPHOCYTE% 13.9 % (17.0-45.0); MEAN CELL VOLUME 92.5 FL (83-96); MEAN CORPUSCULAR HEMOGLOBIN 30.8 PG (28-34); MEAN CORPUSCULAR HGB CONC 33.4 g/dL (30-36); MEAN PLATELET VOLUME 6.9 FL (6.5-11.5); MONOCYTE# 1.5 X10e3 (0-1.0); MONOCYTE% 15.3 % (3.0-12.0); NEUTROPHIL# 6.4 X10e3 (1.5-7.1); NEUTROPHIL% 67.1 % (40-75); PLATELET COUNT 336 X10e3 (140-420); RED BLOOD COUNT 3.41 X10e (3.90-5.60); WHITE BLOOD COUNT 9.6 X10e3 (4.0-10.5)
[2017-02-10 02:10] LABS: ALBUMIN SERUM 3.1 g/dL (3.5-5.0); BILIRUBIN,TOTAL 0.8 mg/dL (0.2-2.0); BUN/CREATININE RATIO 20.76; CALCIUM SERUM 8.3 mg/dL (8.4-10.2); CREATININE SERUM 1.3 mg/dL (0.6-1.4); GLOM FILT RATE Estimated 68.3 mL/min (>60); POTASSIUM 3.6 mmol/L (3.5-5.1); PROTEIN TOTAL SERUM 6.6 g/dL (6.0-8.3)
[2017-02-10 02:34] LABS: %MB 1.4 % (0.0-4.0); MB 2.5 ng/ml
[2017-02-10 04:37] LABS: ARTERIAL BLD GAS O2 SATURATION 95.5 % (90.0-100.0); ARTERIAL BLOOD GAS CARBOXY HB 0.5 %sat (0.0-9.0); ARTERIAL BLOOD GAS HCO3 21.9 mmol/L; ARTERIAL BLOOD GAS MET HB 0.5 %sat (0.0-2.0); ARTERIAL BLOOD GAS PCO2 35.9 mmHg (35.0-45.0); ARTERIAL BLOOD GAS PO2 82.8 mmHg (80.0-100); ARTERIAL BLOOD GAS pH 7.395 (7.350-7.450)
[2017-02-10 05:00] LABS: ARTERIAL BLOOD GAS ALLEN TEST NORMAL; ARTERIAL BLOOD GAS ART SITE RIGHT RADIAL; ARTERIAL BLOOD GAS DELIVERY VENT; ARTERIAL BLOOD GAS VENT MODE AC; ARTERIAL DRAW? YES
[2017-02-11 04:08] LABS: ARTERIAL BLD GAS O2 SATURATION 95.9 % (90.0-100.0); ARTERIAL BLOOD GAS CARBOXY HB 0.6 %sat (0.0-9.0); ARTERIAL BLOOD GAS HCO3 22.1 mmol/L; ARTERIAL BLOOD GAS MET HB 0.9 %sat (0.0-2.0); ARTERIAL BLOOD GAS PCO2 32.3 mmHg (35.0-45.0); ARTERIAL BLOOD GAS PO2 83.2 mmHg (80.0-100); ARTERIAL BLOOD GAS pH 7.443 (7.350-7.450)
[2017-02-11 04:12] LABS: ARTERIAL BLOOD GAS ALLEN TEST NORMAL; ARTERIAL BLOOD GAS ART SITE LEFT RADIAL; ARTERIAL BLOOD GAS DELIVERY VENT; ARTERIAL BLOOD GAS VENT MODE AC; ARTERIAL DRAW? YES
[2017-02-11 05:11] LABS: BASOPHIL% 0.3 % (0-2.5); EOSINOPHIL# 0.4 X10e3 (0-0.7); EOSINOPHIL% 4.2 % (0.0-7.0); HEMATOCRIT 30.3 % (38.0-50.0); HEMOGLOBIN 10.5 gm/dL (13.0-16.0); LYMPHOCYTE# 0.9 X10e3 (1.0-3.5); LYMPHOCYTE% 9.9 % (17.0-45.0); MEAN CELL VOLUME 92.1 FL (83-96); MEAN CORPUSCULAR HEMOGLOBIN 31.8 PG (28-34); MEAN CORPUSCULAR HGB CONC 34.6 g/dL (30-36); MEAN PLATELET VOLUME 6.8 FL (6.5-11.5); MONOCYTE# 1.6 X10e3 (0-1.0); MONOCYTE% 16.7 % (3.0-12.0); NEUTROPHIL# 6.5 X10e3 (1.5-7.1); NEUTROPHIL% 68.9 % (40-75); PLATELET COUNT 354 X10e3 (140-420); RED BLOOD COUNT 3.29 X10e (3.90-5.60); RED CELL DISTRIBUTION WIDTH 14.4 % (11.0-15.5); WHITE BLOOD COUNT 9.4 X10e3 (4.0-10.5)
[2017-02-11 05:14] LABS: DIFF IND NO
[2017-02-11 06:20] LABS: BUN/CREATININE RATIO 21.42; CALCIUM SERUM 8.6 mg/dL (8.4-10.2); CREATININE SERUM 1.4 mg/dL (0.6-1.4); GLOM FILT RATE Estimated 62.4 mL/min (>60); MAGNESIUM 2.5 mg/dL (1.6-3.0); POTASSIUM 3.7 mmol/L (3.5-5.1)
[2017-02-11 07:00] LABS: %MB 1.1 % (0.0-4.0); MB 1.3 ng/ml
[2017-02-12 04:22] LABS: BASOPHIL% 0.3 % (0-2.5); EOSINOPHIL# 0.2 X10e3 (0-0.7); EOSINOPHIL% 1.7 % (0.0-7.0); HEMATOCRIT 32.4 % (38.0-50.0); HEMOGLOBIN 10.6 gm/dL (13.0-16.0); LYMPHOCYTE% 9.2 % (17.0-45.0); MEAN CELL VOLUME 92.4 FL (83-96); MEAN CORPUSCULAR HEMOGLOBIN 30.3 PG (28-34); MEAN CORPUSCULAR HGB CONC 32.8 g/dL (30-36); MEAN PLATELET VOLUME 6.7 FL (6.5-11.5); MONOCYTE# 1.6 X10e3 (0-1.0); NEUTROPHIL# 8.5 X10e3 (1.5-7.1); NEUTROPHIL% 74.8 % (40-75); PLATELET COUNT 384 X10e3 (140-420); RED CELL DISTRIBUTION WIDTH 14.4 % (11.0-15.5); WHITE BLOOD COUNT 11.3 X10e3 (4.0-10.5)
[2017-02-12 04:26] LABS: DIFF IND NO
[2017-02-12 04:31] LABS: ARTERIAL BLD GAS O2 SATURATION 94.9 % (90.0-100.0); ARTERIAL BLOOD GAS CARBOXY HB 0.5 %sat (0.0-9.0); ARTERIAL BLOOD GAS HCO3 22.3 mmol/L; ARTERIAL BLOOD GAS PCO2 37.9 mmHg (35.0-45.0); ARTERIAL BLOOD GAS pH 7.379 (7.350-7.450)
[2017-02-12 04:39] LABS: ARTERIAL BLOOD GAS PO2 76.8 mmHg (80.0-100)
[2017-02-12 04:40] LABS: ARTERIAL BLOOD GAS ALLEN TEST NORMAL; ARTERIAL BLOOD GAS ART SITE LEFT RADIAL; ARTERIAL BLOOD GAS DELIVERY VENT; ARTERIAL BLOOD GAS VENT MODE AC; ARTERIAL DRAW? YES
[2017-02-12 05:07] LABS: ALBUMIN SERUM 3.2 g/dL (3.5-5.0); BILIRUBIN,TOTAL 0.7 mg/dL (0.2-2.0); BUN/CREATININE RATIO 22.66; CALCIUM SERUM 8.6 mg/dL (8.4-10.2); CREATININE SERUM 1.5 mg/dL (0.6-1.4); GLOM FILT RATE Estimated 57.4 mL/min (>60); MAGNESIUM 2.6 mg/dL (1.6-3.0); POTASSIUM 3.8 mmol/L (3.5-5.1); PROTEIN TOTAL SERUM 7.2 g/dL (6.0-8.3)
[2017-02-13 04:08] LABS: ARTERIAL BLOOD GAS CARBOXY HB 0.8 %sat (0.0-9.0); ARTERIAL BLOOD GAS HCO3 20.3 mmol/L; ARTERIAL BLOOD GAS MET HB 0.7 %sat (0.0-2.0); ARTERIAL BLOOD GAS PCO2 32.8 mmHg (35.0-45.0); ARTERIAL BLOOD GAS pH 7.399 (7.350-7.450)
[2017-02-13 04:10] LABS: ARTERIAL BLOOD GAS ALLEN TEST NORMAL; ARTERIAL BLOOD GAS ART SITE LEFT RADIAL; ARTERIAL BLOOD GAS DELIVERY VENT; ARTERIAL BLOOD GAS PO2 67.1 mmHg (80.0-100); ARTERIAL BLOOD GAS VENT MODE AC; ARTERIAL DRAW? YES
[2017-02-13 06:21] LABS: BASOPHIL% 0.3 % (0-2.5); EOSINOPHIL# 0.2 X10e3 (0-0.7); HEMATOCRIT 28.6 % (38.0-50.0); HEMOGLOBIN 9.7 gm/dL (13.0-16.0); LYMPHOCYTE# 0.6 X10e3 (1.0-3.5); LYMPHOCYTE% 6.3 % (17.0-45.0); MEAN CELL VOLUME 92.8 FL (83-96); MEAN CORPUSCULAR HEMOGLOBIN 31.5 PG (28-34); MEAN CORPUSCULAR HGB CONC 33.9 g/dL (30-36); MEAN PLATELET VOLUME 7.1 FL (6.5-11.5); MONOCYTE# 1.3 X10e3 (0-1.0); MONOCYTE% 12.9 % (3.0-12.0); NEUTROPHIL# 7.8 X10e3 (1.5-7.1); NEUTROPHIL% 78.5 % (40-75); PLATELET COUNT 351 X10e3 (140-420); RED BLOOD COUNT 3.08 X10e (3.90-5.60); RED CELL DISTRIBUTION WIDTH 14.4 % (11.0-15.5)
[2017-02-13 06:24] LABS: DIFF IND NO
[2017-02-13 07:26] LABS: BUN/CREATININE RATIO 33.84; CALCIUM SERUM 8.3 mg/dL (8.4-10.2); CREATININE SERUM 1.3 mg/dL (0.6-1.4); GLOM FILT RATE Estimated 68.3 mL/min (>60); MAGNESIUM 2.8 mg/dL (1.6-3.0); POTASSIUM 3.8 mmol/L (3.5-5.1)
[2017-02-13 07:35] LABS: PROCALCITONIN 0.1 NG/ML
[2017-02-14 04:00] LABS: ARTERIAL BLD GAS O2 SATURATION 89.8 % (90.0-100.0); ARTERIAL BLOOD GAS CARBOXY HB 0.8 %sat (0.0-9.0); ARTERIAL BLOOD GAS HCO3 19.3 mmol/L; ARTERIAL BLOOD GAS MET HB 0.5 %sat (0.0-2.0); ARTERIAL BLOOD GAS PCO2 31.2 mmHg (35.0-45.0); ARTERIAL BLOOD GAS pH 7.399 (7.350-7.450)
[2017-02-14 04:11] LABS: ARTERIAL BLOOD GAS ART SITE LEFT BRACHIAL; ARTERIAL BLOOD GAS DELIVERY VENT; ARTERIAL BLOOD GAS PO2 63.4 mmHg (80.0-100); ARTERIAL BLOOD GAS VENT MODE AC; ARTERIAL DRAW? YES
[2017-02-14 05:35] LABS: BASOPHIL# 0.1 X10e3 (0-0.3); BASOPHIL% 0.5 % (0-2.5); EOSINOPHIL# 0.3 X10e3 (0-0.7); EOSINOPHIL% 2.4 % (0.0-7.0); HEMATOCRIT 28.8 % (38.0-50.0); HEMOGLOBIN 9.6 gm/dL (13.0-16.0); LYMPHOCYTE% 8.5 % (17.0-45.0); MEAN CELL VOLUME 92.5 FL (83-96); MEAN CORPUSCULAR HEMOGLOBIN 30.7 PG (28-34); MEAN CORPUSCULAR HGB CONC 33.2 g/dL (30-36); MEAN PLATELET VOLUME 7.1 FL (6.5-11.5); MONOCYTE# 1.5 X10e3 (0-1.0); MONOCYTE% 12.8 % (3.0-12.0); NEUTROPHIL# 9.1 X10e3 (1.5-7.1); NEUTROPHIL% 75.8 % (40-75); PLATELET COUNT 365 X10e3 (140-420); RED BLOOD COUNT 3.11 X10e (3.90-5.60); RED CELL DISTRIBUTION WIDTH 14.1 % (11.0-15.5); WHITE BLOOD COUNT 12.1 X10e3 (4.0-10.5)
[2017-02-14 06:17] LABS: BUN/CREATININE RATIO 32.22; CALCIUM SERUM 8.4 mg/dL (8.4-10.2); CREATININE SERUM 1.8 mg/dL (0.6-1.4); GLOM FILT RATE Estimated 46.1 mL/min (>60); POTASSIUM 3.3 mmol/L (3.5-5.1)
[2017-02-14 06:46] LABS: DIFF IND NO
[2017-02-14 09:03] LABS: AMYLASE 19 U/L (0-46); LIPASE 17 U/L (22-51)
[2017-02-14 13:11] LABS: URINE APPEARANCE CLEAR; URINE BILIRUBIN NEG (NEG); URINE BLOOD 2+ (NEG); URINE COLOR YELLOW; URINE GLUCOSE NORM (NORM); URINE KETONE NEG (NEG); URINE LEUKOCYTE ESTERASE NEG (NEG); URINE NITRATE NEG (NEG); URINE PROTEIN NEG (NEG); URINE UROBILINOGEN NORM (NORM)
[2017-02-14 13:28] LABS: URBCS1 AUWI 25-50 /[HPF] (0-2)
[2017-02-14 13:29] LABS: URINE SQUAMOUS EPITHELIAL CELL FEW /[HPF]; URINE YEAST PRESENT
[2017-02-14 13:30] LABS: CULTURE INDICATED? NO
[2017-02-14 14:34] LABS: HSV 1 DNA Not Detected (Not Detected); HSV 2 DNA Not Detected (Not Detected)
[2017-02-14 16:35] LABS: ARTERIAL BLD GAS O2 SATURATION 90.1 % (90.0-100.0); ARTERIAL BLOOD GAS CARBOXY HB 0.8 %sat (0.0-9.0); ARTERIAL BLOOD GAS HCO3 19.7 mmol/L; ARTERIAL BLOOD GAS MET HB 0.8 %sat (0.0-2.0); ARTERIAL BLOOD GAS PCO2 30.5 mmHg (35.0-45.0); ARTERIAL BLOOD GAS pH 7.419 (7.350-7.450)
[2017-02-14 16:36] LABS: ARTERIAL BLOOD GAS ALLEN TEST NORMAL; ARTERIAL BLOOD GAS ART SITE RIGHT RADIAL; ARTERIAL BLOOD GAS DELIVERY VENT; ARTERIAL BLOOD GAS PO2 62.4 mmHg (80.0-100); ARTERIAL BLOOD GAS VENT MODE AC; ARTERIAL DRAW? YES
[2017-02-14 18:08] LABS: BASOPHIL# 0.1 X10e3 (0-0.3); BASOPHIL% 0.5 % (0-2.5); EOSINOPHIL# 0.3 X10e3 (0-0.7); EOSINOPHIL% 1.9 % (0.0-7.0); HEMOGLOBIN 9.8 gm/dL (13.0-16.0); LYMPHOCYTE# 0.8 X10e3 (1.0-3.5); LYMPHOCYTE% 4.8 % (17.0-45.0); MEAN CELL VOLUME 92.3 FL (83-96); MEAN CORPUSCULAR HEMOGLOBIN 30.2 PG (28-34); MEAN CORPUSCULAR HGB CONC 32.7 g/dL (30-36); MEAN PLATELET VOLUME 6.9 FL (6.5-11.5); MONOCYTE# 2.4 X10e3 (0-1.0); MONOCYTE% 14.5 % (3.0-12.0); NEUTROPHIL# 12.9 X10e3 (1.5-7.1); NEUTROPHIL% 78.3 % (40-75); PLATELET COUNT 428 X10e3 (140-420); RED BLOOD COUNT 3.25 X10e (3.90-5.60); RED CELL DISTRIBUTION WIDTH 14.2 % (11.0-15.5); WHITE BLOOD COUNT 16.5 X10e3 (4.0-10.5)
[2017-02-14 18:11] LABS: DIFF IND YES
[2017-02-14 18:16] LABS: INR 1.1; PARTIAL THROMBOPLASTIN TIME 26.7 SECONDS (23.5-31.3); PROTHROMBIN TIME (PATIENT) 11.7 SECONDS (10.0-11.7)
[2017-02-14 18:41] LABS: ANISOCYTOSIS SL; PLATELET ESTIMATE NORMAL (NORMAL)
[2017-02-15 04:14] LABS: ARTERIAL BLD GAS O2 SATURATION 94.5 % (90.0-100.0); ARTERIAL BLOOD GAS HCO3 19.9 mmol/L; ARTERIAL BLOOD GAS MET HB 0.9 %sat (0.0-2.0); ARTERIAL BLOOD GAS PCO2 30.4 mmHg (35.0-45.0); ARTERIAL BLOOD GAS pH 7.424 (7.350-7.450)
[2017-02-15 04:16] LABS: ARTERIAL BLOOD GAS ALLEN TEST NORMAL; ARTERIAL BLOOD GAS ART SITE RIGHT RADIAL; ARTERIAL BLOOD GAS DELIVERY VENT; ARTERIAL BLOOD GAS PO2 79.6 mmHg (80.0-100); ARTERIAL BLOOD GAS VENT MODE AC; ARTERIAL DRAW? YES
[2017-02-15 05:44] LABS: BASOPHIL% 0.1 % (0-2.5); LYMPHOCYTE# 0.2 X10e3 (1.0-3.5); LYMPHOCYTE% 1.7 % (17.0-45.0); MEAN CELL VOLUME 92.5 FL (83-96); MEAN CORPUSCULAR HEMOGLOBIN 30.8 PG (28-34); MEAN CORPUSCULAR HGB CONC 33.3 g/dL (30-36); MEAN PLATELET VOLUME 7.3 FL (6.5-11.5); MONOCYTE# 0.3 X10e3 (0-1.0); MONOCYTE% 2.7 % (3.0-12.0); NEUTROPHIL% 95.5 % (40-75); PLATELET COUNT 376 X10e3 (140-420); RED BLOOD COUNT 2.92 X10e (3.90-5.60); RED CELL DISTRIBUTION WIDTH 14.7 % (11.0-15.5); WHITE BLOOD COUNT 10.4 X10e3 (4.0-10.5)
[2017-02-15 05:49] LABS: DIFF IND NO
[2017-02-15 06:24] LABS: ALBUMIN SERUM 2.9 g/dL (3.5-5.0); BILIRUBIN,TOTAL 0.7 mg/dL (0.2-2.0); BUN/CREATININE RATIO 28.26; CALCIUM SERUM 8.3 mg/dL (8.4-10.2); CREATININE SERUM 2.3 mg/dL (0.6-1.4); GLOM FILT RATE Estimated 34.2 mL/min (>60); MAGNESIUM 2.4 mg/dL (1.6-3.0); PHOSPHOROUS 4.7 mg/dL (2.5-4.6); POTASSIUM 3.4 mmol/L (3.5-5.1)
[2017-02-15 10:59] LABS: HEMATOCRIT 28.8 % (38.0-50.0); HEMOGLOBIN 9.4 gm/dL (13.0-16.0); MEAN CELL VOLUME 92.2 FL (83-96); MEAN CORPUSCULAR HEMOGLOBIN 30.3 PG (28-34); MEAN CORPUSCULAR HGB CONC 32.8 g/dL (30-36); MEAN PLATELET VOLUME 7.4 FL (6.5-11.5); RED BLOOD COUNT 3.12 X10e (3.90-5.60); RED CELL DISTRIBUTION WIDTH 14.5 % (11.0-15.5); WHITE BLOOD COUNT 12.4 X10e3 (4.0-10.5)
[2017-02-15 17:03] LABS: HEMATOCRIT 26.2 % (38.0-50.0)
[2017-02-16 03:59] LABS: ARTERIAL BLD GAS O2 SATURATION 98.7 % (90.0-100.0); ARTERIAL BLOOD GAS CARBOXY HB 0.3 %sat (0.0-9.0); ARTERIAL BLOOD GAS HCO3 24.7 mmol/L; ARTERIAL BLOOD GAS MET HB 0.9 %sat (0.0-2.0); ARTERIAL BLOOD GAS PCO2 36.4 mmHg (35.0-45.0)
[2017-02-16 04:02] LABS: ARTERIAL BLOOD GAS ALLEN TEST NORMAL; ARTERIAL BLOOD GAS ART SITE LEFT RADIAL; ARTERIAL BLOOD GAS DELIVERY VENT; ARTERIAL BLOOD GAS VENT MODE A/C; ARTERIAL DRAW? YES
[2017-02-16 05:17] LABS: BASOPHIL% 0.1 % (0-2.5); DIFF IND NO; HEMATOCRIT 26.2 % (38.0-50.0); HEMOGLOBIN 8.9 gm/dL (13.0-16.0); LYMPHOCYTE# 0.3 X10e3 (1.0-3.5); LYMPHOCYTE% 2.6 % (17.0-45.0); MEAN CELL VOLUME 91.4 FL (83-96); MEAN PLATELET VOLUME 6.8 FL (6.5-11.5); MONOCYTE# 0.8 X10e3 (0-1.0); NEUTROPHIL# 9.8 X10e3 (1.5-7.1); NEUTROPHIL% 90.3 % (40-75); PLATELET COUNT 393 X10e3 (140-420); RED BLOOD COUNT 2.87 X10e (3.90-5.60); RED CELL DISTRIBUTION WIDTH 14.1 % (11.0-15.5); WHITE BLOOD COUNT 10.9 X10e3 (4.0-10.5)
[2017-02-16 06:55] LABS: ALBUMIN SERUM 2.7 g/dL (3.5-5.0); BILIRUBIN,TOTAL 0.6 mg/dL (0.2-2.0); BUN/CREATININE RATIO 31.2; CALCIUM SERUM 8.3 mg/dL (8.4-10.2); CREATININE SERUM 2.5 mg/dL (0.6-1.4); MAGNESIUM 2.1 mg/dL (1.6-3.0); PHOSPHOROUS 6.1 mg/dL (2.5-4.6); PROTEIN TOTAL SERUM 6.7 g/dL (6.0-8.3)
[2017-02-16 09:49] LABS: ARTERIAL BLD GAS O2 SATURATION 97.2 % (90.0-100.0); ARTERIAL BLOOD GAS CARBOXY HB 0.4 %sat (0.0-9.0); ARTERIAL BLOOD GAS HCO3 24.9 mmol/L; ARTERIAL BLOOD GAS MET HB 0.6 %sat (0.0-2.0); ARTERIAL BLOOD GAS PCO2 30.4 mmHg (35.0-45.0); ARTERIAL BLOOD GAS pH 7.521 (7.350-7.450)
[2017-02-16 09:50] LABS: ARTERIAL BLOOD GAS ART SITE RIGHT RADIAL; ARTERIAL BLOOD GAS DELIVERY VENT; ARTERIAL BLOOD GAS VENT MODE CPAP; ARTERIAL DRAW? YES
[2017-02-17 05:08] LABS: BASOPHIL% 0.1 % (0-2.5); DIFF IND NO; HEMOGLOBIN 9.7 gm/dL (13.0-16.0); LYMPHOCYTE# 0.4 X10e3 (1.0-3.5); LYMPHOCYTE% 2.5 % (17.0-45.0); MEAN CELL VOLUME 92.1 FL (83-96); MEAN CORPUSCULAR HEMOGLOBIN 30.7 PG (28-34); MEAN CORPUSCULAR HGB CONC 33.4 g/dL (30-36); MEAN PLATELET VOLUME 6.9 FL (6.5-11.5); MONOCYTE# 1.1 X10e3 (0-1.0); MONOCYTE% 7.6 % (3.0-12.0); NEUTROPHIL# 13.4 X10e3 (1.5-7.1); NEUTROPHIL% 89.8 % (40-75); PLATELET COUNT 454 X10e3 (140-420); RED BLOOD COUNT 3.15 X10e (3.90-5.60); RED CELL DISTRIBUTION WIDTH 14.4 % (11.0-15.5); WHITE BLOOD COUNT 14.9 X10e3 (4.0-10.5)
[2017-02-17 06:23] LABS: CALCIUM SERUM 8.8 mg/dL (8.4-10.2); CREATININE SERUM 2.5 mg/dL (0.6-1.4); MAGNESIUM 2.6 mg/dL (1.6-3.0)
[2017-02-17 12:05] LABS: ARTERIAL BLD GAS O2 SATURATION 96.3 % (90.0-100.0); ARTERIAL BLOOD GAS CARBOXY HB 0.6 %sat (0.0-9.0); ARTERIAL BLOOD GAS MET HB 0.7 %sat (0.0-2.0); ARTERIAL BLOOD GAS PO2 88.8 mmHg (80.0-100); ARTERIAL BLOOD GAS pH 7.495 (7.350-7.450)
[2017-02-17 12:07] LABS: ARTERIAL BLOOD GAS ART SITE RIGHT RADIAL; ARTERIAL BLOOD GAS DELIVERY VENT; ARTERIAL BLOOD GAS VENT MODE CPAP; ARTERIAL DRAW? YES
[2017-02-17 19:09] LABS: ARTERIAL BLD GAS O2 SATURATION 89.2 % (90.0-100.0); ARTERIAL BLOOD GAS CARBOXY HB 0.8 %sat (0.0-9.0); ARTERIAL BLOOD GAS HCO3 26.9 mmol/L; ARTERIAL BLOOD GAS MET HB 0.8 %sat (0.0-2.0); ARTERIAL BLOOD GAS PCO2 37.7 mmHg (35.0-45.0); ARTERIAL BLOOD GAS pH 7.463 (7.350-7.450)
[2017-02-17 19:10] LABS: ARTERIAL BLOOD GAS ALLEN TEST NORMAL; ARTERIAL BLOOD GAS ART SITE LEFT RADIAL; ARTERIAL BLOOD GAS DELIVERY BIPAP 14/5; ARTERIAL BLOOD GAS PO2 60.2 mmHg (80.0-100); ARTERIAL DRAW? YES
[2017-02-18 05:14] LABS: BASOPHIL% 0.1 % (0-2.5); HEMATOCRIT 28.8 % (38.0-50.0); HEMOGLOBIN 9.4 gm/dL (13.0-16.0); LYMPHOCYTE# 0.4 X10e3 (1.0-3.5); LYMPHOCYTE% 3.3 % (17.0-45.0); MEAN CELL VOLUME 93.3 FL (83-96); MEAN CORPUSCULAR HEMOGLOBIN 30.6 PG (28-34); MEAN CORPUSCULAR HGB CONC 32.7 g/dL (30-36); MONOCYTE# 0.8 X10e3 (0-1.0); MONOCYTE% 6.3 % (3.0-12.0); NEUTROPHIL# 11.1 X10e3 (1.5-7.1); NEUTROPHIL% 90.3 % (40-75); PLATELET COUNT 423 X10e3 (140-420); RED BLOOD COUNT 3.09 X10e (3.90-5.60); WHITE BLOOD COUNT 12.3 X10e3 (4.0-10.5)
[2017-02-18 05:40] LABS: ALBUMIN SERUM 2.6 g/dL (3.5-5.0); BILIRUBIN,TOTAL 0.6 mg/dL (0.2-2.0); BUN/CREATININE RATIO 41.05; CALCIUM SERUM 8.9 mg/dL (8.4-10.2); CREATININE SERUM 1.9 mg/dL (0.6-1.4); GLOM FILT RATE Estimated 43.1 mL/min (>60); POTASSIUM 4.2 mmol/L (3.5-5.1); PROTEIN TOTAL SERUM 5.9 g/dL (6.0-8.3)
[2017-02-18 05:43] LABS: DIFF IND NO
[2017-02-18 08:11] LABS: ARTERIAL BLD GAS O2 SATURATION 96.7 % (90.0-100.0); ARTERIAL BLOOD GAS CARBOXY HB 0.7 %sat (0.0-9.0); ARTERIAL BLOOD GAS HCO3 26.5 mmol/L; ARTERIAL BLOOD GAS MET HB 0.7 %sat (0.0-2.0); ARTERIAL BLOOD GAS PCO2 38.5 mmHg (35.0-45.0); ARTERIAL BLOOD GAS PO2 98.3 mmHg (80.0-100); ARTERIAL BLOOD GAS pH 7.447 (7.350-7.450)
[2017-02-18 08:12] LABS: ARTERIAL BLOOD GAS ALLEN TEST NORMAL; ARTERIAL BLOOD GAS ART SITE RIGHT RADIAL; ARTERIAL BLOOD GAS DELIVERY BIPAP; ARTERIAL DRAW? YES
[2017-02-18] MEDS ORDERED: MR (14:52)
[2017-02-19 06:14] LABS: EOSINOPHIL% 0.1 % (0.0-7.0); LYMPHOCYTE# 0.8 X10e3 (1.0-3.5); LYMPHOCYTE% 4.5 % (17.0-45.0); MEAN CELL VOLUME 93.6 FL (83-96); MEAN CORPUSCULAR HGB CONC 32.1 g/dL (30-36); MEAN PLATELET VOLUME 7.3 FL (6.5-11.5); MONOCYTE# 1.2 X10e3 (0-1.0); MONOCYTE% 6.8 % (3.0-12.0); NEUTROPHIL# 15.3 X10e3 (1.5-7.1); NEUTROPHIL% 88.6 % (40-75); PLATELET COUNT 421 X10e3 (140-420); RED BLOOD COUNT 3.32 X10e (3.90-5.60); RED CELL DISTRIBUTION WIDTH 14.8 % (11.0-15.5); WHITE BLOOD COUNT 17.3 X10e3 (4.0-10.5)
[2017-02-19 06:21] LABS: DIFF IND YES
[2017-02-19 06:38] LABS: ALBUMIN SERUM 2.5 g/dL (3.5-5.0); BILIRUBIN,TOTAL 0.7 mg/dL (0.2-2.0); BUN/CREATININE RATIO 37.05; CALCIUM SERUM 8.4 mg/dL (8.4-10.2); CREATININE SERUM 1.7 mg/dL (0.6-1.4); GLOM FILT RATE Estimated 49.4 mL/min (>60); MAGNESIUM 2.3 mg/dL (1.6-3.0); PHOSPHOROUS 2.6 mg/dL (2.5-4.6); PROTEIN TOTAL SERUM 6.2 g/dL (6.0-8.3)
[2017-02-19 06:43] LABS: POTASSIUM 2.7 mmol/L (3.5-5.1)
[2017-02-19 07:16] LABS: ANISOCYTOSIS SL; PLATELET ESTIMATE NORMAL (NORMAL)
[2017-02-19 08:46] LABS: ARTERIAL BLD GAS O2 SATURATION 85.2 % (90.0-100.0); ARTERIAL BLOOD GAS HCO3 28.3 mmol/L; ARTERIAL BLOOD GAS MET HB 0.9 %sat (0.0-2.0); ARTERIAL BLOOD GAS PCO2 35.2 mmHg (35.0-45.0); ARTERIAL BLOOD GAS PO2 49.5 mmHg (80.0-100); ARTERIAL BLOOD GAS pH 7.513 (7.350-7.450); ARTERIAL DRAW? YES
[2017-02-19 08:47] LABS: ARTERIAL BLOOD GAS ALLEN TEST NORMAL; ARTERIAL BLOOD GAS ART SITE RIGHT RADIAL; ARTERIAL BLOOD GAS DELIVERY BIPAP 14/5
[2017-02-20 04:21] LABS: ARTERIAL BLD GAS O2 SATURATION 97.6 % (90.0-100.0); ARTERIAL BLOOD GAS CARBOXY HB 0.7 %sat (0.0-9.0); ARTERIAL BLOOD GAS HCO3 31.2 mmol/L; ARTERIAL BLOOD GAS MET HB 0.9 %sat (0.0-2.0); ARTERIAL BLOOD GAS PCO2 39.1 mmHg (35.0-45.0)
[2017-02-20 04:31] LABS: ARTERIAL BLOOD GAS ALLEN TEST NORMAL; ARTERIAL BLOOD GAS ART SITE RIGHT RADIAL; ARTERIAL BLOOD GAS DELIVERY BIPAP 14/5; ARTERIAL DRAW? YES
[2017-02-20 05:12] LABS: BASOPHIL% 0.2 % (0-2.5); HEMATOCRIT 31.6 % (38.0-50.0); HEMOGLOBIN 10.3 gm/dL (13.0-16.0); LYMPHOCYTE# 0.4 X10e3 (1.0-3.5); LYMPHOCYTE% 2.1 % (17.0-45.0); MEAN CELL VOLUME 93.7 FL (83-96); MEAN CORPUSCULAR HEMOGLOBIN 30.7 PG (28-34); MEAN CORPUSCULAR HGB CONC 32.8 g/dL (30-36); MEAN PLATELET VOLUME 7.1 FL (6.5-11.5); MONOCYTE# 0.4 X10e3 (0-1.0); MONOCYTE% 2.4 % (3.0-12.0); NEUTROPHIL# 16.4 X10e3 (1.5-7.1); NEUTROPHIL% 95.3 % (40-75); PLATELET COUNT 363 X10e3 (140-420); RED BLOOD COUNT 3.37 X10e (3.90-5.60); RED CELL DISTRIBUTION WIDTH 14.4 % (11.0-15.5); WHITE BLOOD COUNT 17.2 X10e3 (4.0-10.5)
[2017-02-20 05:13] LABS: DIFF IND NO
[2017-02-20 05:44] LABS: ALBUMIN SERUM 2.6 g/dL (3.5-5.0); BILIRUBIN,TOTAL 0.6 mg/dL (0.2-2.0); BUN/CREATININE RATIO 37.77; CALCIUM SERUM 8.7 mg/dL (8.4-10.2); CREATININE SERUM 1.8 mg/dL (0.6-1.4); GLOM FILT RATE Estimated 46.1 mL/min (>60); MAGNESIUM 2.4 mg/dL (1.6-3.0); PHOSPHOROUS 4.1 mg/dL (2.5-4.6); POTASSIUM 3.4 mmol/L (3.5-5.1); PROTEIN TOTAL SERUM 6.4 g/dL (6.0-8.3)
[2017-02-20 16:04] LABS: BUN/CREATININE RATIO 37.22; CALCIUM SERUM 8.6 mg/dL (8.4-10.2); CREATININE SERUM 1.8 mg/dL (0.6-1.4); GLOM FILT RATE Estimated 46.1 mL/min (>60); POTASSIUM 3.4 mmol/L (3.5-5.1)
[2017-02-21 05:56] LABS: BASOPHIL% 0.2 % (0-2.5); HEMATOCRIT 30.7 % (38.0-50.0); HEMOGLOBIN 9.9 gm/dL (13.0-16.0); LYMPHOCYTE# 0.5 X10e3 (1.0-3.5); LYMPHOCYTE% 2.4 % (17.0-45.0); MEAN CELL VOLUME 93.2 FL (83-96); MEAN CORPUSCULAR HEMOGLOBIN 30.2 PG (28-34); MEAN CORPUSCULAR HGB CONC 32.4 g/dL (30-36); MEAN PLATELET VOLUME 7.7 FL (6.5-11.5); MONOCYTE# 0.4 X10e3 (0-1.0); MONOCYTE% 2.2 % (3.0-12.0); NEUTROPHIL# 19.1 X10e3 (1.5-7.1); NEUTROPHIL% 95.2 % (40-75); PLATELET COUNT 343 X10e3 (140-420); RED BLOOD COUNT 3.29 X10e (3.90-5.60); RED CELL DISTRIBUTION WIDTH 14.3 % (11.0-15.5); WHITE BLOOD COUNT 20.1 X10e3 (4.0-10.5)
[2017-02-21 05:58] LABS: DIFF IND NO
[2017-02-21 06:56] LABS: ALBUMIN SERUM 2.6 g/dL (3.5-5.0); BILIRUBIN,TOTAL 0.9 mg/dL (0.2-2.0); BUN/CREATININE RATIO 38.12; CALCIUM SERUM 8.5 mg/dL (8.4-10.2); CREATININE SERUM 1.6 mg/dL (0.6-1.4); GLOM FILT RATE Estimated 53.1 mL/min (>60); MAGNESIUM 2.2 mg/dL (1.6-3.0); PHOSPHOROUS 3.2 mg/dL (2.5-4.6); POTASSIUM 3.3 mmol/L (3.5-5.1); PROTEIN TOTAL SERUM 6.2 g/dL (6.0-8.3)
[2017-02-22 04:55] LABS: BASOPHIL% 0.1 % (0-2.5); HEMATOCRIT 28.3 % (38.0-50.0); HEMOGLOBIN 9.3 gm/dL (13.0-16.0); LYMPHOCYTE# 0.4 X10e3 (1.0-3.5); LYMPHOCYTE% 2.7 % (17.0-45.0); MEAN CORPUSCULAR HEMOGLOBIN 30.2 PG (28-34); MEAN CORPUSCULAR HGB CONC 32.8 g/dL (30-36); MEAN PLATELET VOLUME 7.2 FL (6.5-11.5); MONOCYTE# 0.3 X10e3 (0-1.0); MONOCYTE% 2.4 % (3.0-12.0); NEUTROPHIL# 13.9 X10e3 (1.5-7.1); NEUTROPHIL% 94.8 % (40-75); PLATELET COUNT 286 X10e3 (140-420); RED BLOOD COUNT 3.08 X10e (3.90-5.60); RED CELL DISTRIBUTION WIDTH 13.9 % (11.0-15.5); WHITE BLOOD COUNT 14.6 X10e3 (4.0-10.5)
[2017-02-22 05:07] LABS: DIFF IND NO
[2017-02-22 05:21] LABS: ALBUMIN SERUM 2.5 g/dL (3.5-5.0); BUN/CREATININE RATIO 37.5; CREATININE SERUM 1.6 mg/dL (0.6-1.4); GLOM FILT RATE Estimated 53.1 mL/min (>60); MAGNESIUM 2.2 mg/dL (1.6-3.0); PHOSPHOROUS 4.8 mg/dL (2.5-4.6); POTASSIUM 3.6 mmol/L (3.5-5.1); PROTEIN TOTAL SERUM 5.8 g/dL (6.0-8.3)
[2017-02-23 05:05] LABS: HEMATOCRIT 28.6 % (38.0-50.0); HEMOGLOBIN 9.5 gm/dL (13.0-16.0); LYMPHOCYTE# 0.8 X10e3 (1.0-3.5); LYMPHOCYTE% 4.9 % (17.0-45.0); MEAN CELL VOLUME 91.4 FL (83-96); MEAN CORPUSCULAR HEMOGLOBIN 30.4 PG (28-34); MEAN CORPUSCULAR HGB CONC 33.3 g/dL (30-36); MEAN PLATELET VOLUME 7.7 FL (6.5-11.5); MONOCYTE# 0.9 X10e3 (0-1.0); NEUTROPHIL# 15.5 X10e3 (1.5-7.1); NEUTROPHIL% 90.1 % (40-75); PLATELET COUNT 275 X10e3 (140-420); RED BLOOD COUNT 3.13 X10e (3.90-5.60); WHITE BLOOD COUNT 17.2 X10e3 (4.0-10.5)
[2017-02-23 05:06] LABS: DIFF IND YES
[2017-02-23 05:46] LABS: ANISOCYTOSIS SL; PLATELET ESTIMATE NORMAL (NORMAL)
[2017-02-23 06:06] LABS: ALBUMIN SERUM 2.4 g/dL (3.5-5.0); BILIRUBIN,TOTAL 0.6 mg/dL (0.2-2.0); CALCIUM SERUM 8.1 mg/dL (8.4-10.2); CREATININE SERUM 1.5 mg/dL (0.6-1.4); GLOM FILT RATE Estimated 57.4 mL/min (>60); MAGNESIUM 2.3 mg/dL (1.6-3.0); PHOSPHOROUS 4.4 mg/dL (2.5-4.6); POTASSIUM 3.4 mmol/L (3.5-5.1); PROTEIN TOTAL SERUM 5.7 g/dL (6.0-8.3)
[2017-02-24 04:26] LABS: BUN/CREATININE RATIO 38.57; CALCIUM SERUM 7.9 mg/dL (8.4-10.2); CREATININE SERUM 1.4 mg/dL (0.6-1.4); GLOM FILT RATE Estimated 62.4 mL/min (>60); MAGNESIUM 2.2 mg/dL (1.6-3.0); POTASSIUM 3.7 mmol/L (3.5-5.1)
[2017-02-25 06:03] LABS: HEMATOCRIT 26.8 % (38.0-50.0); HEMOGLOBIN 9.1 gm/dL (13.0-16.0); MEAN CELL VOLUME 89.9 FL (83-96); MEAN CORPUSCULAR HEMOGLOBIN 30.6 PG (28-34); MEAN PLATELET VOLUME 8.4 FL (6.5-11.5); RED BLOOD COUNT 2.98 X10e (3.90-5.60); RED CELL DISTRIBUTION WIDTH 13.6 % (11.0-15.5); WHITE BLOOD COUNT 16.6 X10e3 (4.0-10.5)
[2017-02-25 06:26] LABS: BUN/CREATININE RATIO 40.76; CALCIUM SERUM 7.9 mg/dL (8.4-10.2); CREATININE SERUM 1.3 mg/dL (0.6-1.4); GLOM FILT RATE Estimated 68.3 mL/min (>60); MAGNESIUM 2.2 mg/dL (1.6-3.0); PHOSPHOROUS 3.7 mg/dL (2.5-4.6); POTASSIUM 3.7 mmol/L (3.5-5.1)
[2017-02-26 04:47] LABS: HEMATOCRIT 28.1 % (38.0-50.0); HEMOGLOBIN 9.6 gm/dL (13.0-16.0); MEAN CELL VOLUME 89.6 FL (83-96); MEAN CORPUSCULAR HEMOGLOBIN 30.6 PG (28-34); MEAN CORPUSCULAR HGB CONC 34.2 g/dL (30-36); MEAN PLATELET VOLUME 8.5 FL (6.5-11.5); RED BLOOD COUNT 3.14 X10e (3.90-5.60); RED CELL DISTRIBUTION WIDTH 13.3 % (11.0-15.5); WHITE BLOOD COUNT 19.8 X10e3 (4.0-10.5)
[2017-02-26 05:14] LABS: ALBUMIN SERUM 2.5 g/dL (3.5-5.0); BILIRUBIN,TOTAL 0.6 mg/dL (0.2-2.0); BUN/CREATININE RATIO 36.15; CREATININE SERUM 1.3 mg/dL (0.6-1.4); GLOM FILT RATE Estimated 68.3 mL/min (>60); MAGNESIUM 2.2 mg/dL (1.6-3.0); PHOSPHOROUS 2.5 mg/dL (2.5-4.6); POTASSIUM 3.4 mmol/L (3.5-5.1); PROTEIN TOTAL SERUM 5.6 g/dL (6.0-8.3)
[2017-02-27 05:54] LABS: BASOPHIL% 0.2 % (0-2.5); HEMATOCRIT 30.8 % (38.0-50.0); HEMOGLOBIN 10.3 gm/dL (13.0-16.0); LYMPHOCYTE# 0.4 X10e3 (1.0-3.5); LYMPHOCYTE% 2.5 % (17.0-45.0); MEAN CELL VOLUME 89.6 FL (83-96); MEAN CORPUSCULAR HEMOGLOBIN 30.1 PG (28-34); MEAN CORPUSCULAR HGB CONC 33.6 g/dL (30-36); MEAN PLATELET VOLUME 8.5 FL (6.5-11.5); MONOCYTE# 0.6 X10e3 (0-1.0); MONOCYTE% 3.3 % (3.0-12.0); NEUTROPHIL# 16.8 X10e3 (1.5-7.1); PLATELET COUNT 285 X10e3 (140-420); RED BLOOD COUNT 3.43 X10e (3.90-5.60); RED CELL DISTRIBUTION WIDTH 13.4 % (11.0-15.5); WHITE BLOOD COUNT 17.9 X10e3 (4.0-10.5)
[2017-02-27 05:56] LABS: INR 1.2; PROTHROMBIN TIME (PATIENT) 12.8 SECONDS (10.0-11.7)
[2017-02-27 06:00] LABS: DIFF IND YES
[2017-02-27 06:12] LABS: BUN/CREATININE RATIO 32.3; CALCIUM SERUM 8.2 mg/dL (8.4-10.2); CREATININE SERUM 1.3 mg/dL (0.6-1.4); GLOM FILT RATE Estimated 68.3 mL/min (>60); POTASSIUM 3.6 mmol/L (3.5-5.1)
[2017-02-27 06:35] LABS: PLATELET ESTIMATE NORMAL (NORMAL)
[2017-02-28 11:10] LABS: INR 3.2
[2017-02-28 11:19] LABS: PROTHROMBIN TIME (PATIENT) 34.8 SECONDS (10.0-11.7)
[2017-02-28 11:20] LABS: BUN/CREATININE RATIO 25.38; CALCIUM SERUM 8.2 mg/dL (8.4-10.2); CREATININE SERUM 1.3 mg/dL (0.6-1.4); GLOM FILT RATE Estimated 68.3 mL/min (>60); MAGNESIUM 1.9 mg/dL (1.6-3.0)
[2017-03-01 07:06] LABS: HEMATOCRIT 33.3 % (38.0-50.0); HEMOGLOBIN 11.5 gm/dL (13.0-16.0); MEAN CELL VOLUME 89.4 FL (83-96); MEAN CORPUSCULAR HGB CONC 34.7 g/dL (30-36); RED BLOOD COUNT 3.72 X10e (3.90-5.60); RED CELL DISTRIBUTION WIDTH 13.5 % (11.0-15.5); WHITE BLOOD COUNT 12.3 X10e3 (4.0-10.5)
[2017-03-01 07:28] LABS: PROTHROMBIN TIME (PATIENT) 54.4 SECONDS (10.0-11.7)
[2017-03-01 07:40] LABS: BUN/CREATININE RATIO 25.38; CALCIUM SERUM 8.3 mg/dL (8.4-10.2); CREATININE SERUM 1.3 mg/dL (0.6-1.4); GLOM FILT RATE Estimated 68.3 mL/min (>60); MAGNESIUM 2.1 mg/dL (1.6-3.0); PHOSPHOROUS 3.9 mg/dL (2.5-4.6); POTASSIUM 3.9 mmol/L (3.5-5.1)
[2017-03-02 08:40] LABS: PROTHROMBIN TIME (PATIENT) 53.5 SECONDS (10.0-11.7)
[2017-03-02 08:53] LABS: INR 4.9
[2017-03-02 09:03] LABS: AMYLASE 48 U/L (0-46); LIPASE 38 U/L (22-51)
[2017-03-03 05:09] LABS: HEMATOCRIT 34.3 % (38.0-50.0); HEMOGLOBIN 11.3 gm/dL (13.0-16.0); MEAN CELL VOLUME 91.4 FL (83-96); MEAN CORPUSCULAR HEMOGLOBIN 30.2 PG (28-34); MEAN CORPUSCULAR HGB CONC 33.1 g/dL (30-36); MEAN PLATELET VOLUME 8.2 FL (6.5-11.5); RED BLOOD COUNT 3.75 X10e (3.90-5.60); RED CELL DISTRIBUTION WIDTH 14.2 % (11.0-15.5); WHITE BLOOD COUNT 10.6 X10e3 (4.0-10.5)
[2017-03-03 05:33] LABS: INR 4.2; PROTHROMBIN TIME (PATIENT) 45.5 SECONDS (10.0-11.7)
[2017-03-03 07:05] LABS: CREATININE SERUM 1.5 mg/dL (0.6-1.4); GLOM FILT RATE Estimated 57.4 mL/min (>60); POTASSIUM 3.7 mmol/L (3.5-5.1)
[2017-03-04 06:40] LABS: INR 2.8; PROTHROMBIN TIME (PATIENT) 30.8 SECONDS (10.0-11.7)
== END 2017-03-04 21:46 | DRG 246 ==
LOC: EDSEX 13:48 → CED 13:48 → CICCU3 15:35 → CEDOF 15:35 → CICCU2 15:35 → C5B 15:35 → CED 16:29 → CICCU2 16:29 → CEDOF 16:29 → CICCU3 16:29 → CEDOF 20:16 → C5B 02-06 18:00 → CICCU3 02-06 18:00 → CICCU2 02-07 09:03 → C5B 02-07 09:03 → CICCU2 02-07 09:03 → CICCU3 02-08 12:45 → CICCU2 02-22 02:44 → C5B 02-25 09:52
PROVIDERS: Emergency Medicine; Family Medicine; Family Medicine Sleep Medicine; Internal Medicine; Internal Medicine Cardiovascular Disease; Internal Medicine Nephrology; Nurse Practitioner; Urology
PROC: 027036Z Dilation of Coronary Artery, One Artery with Three Drug-eluting Intraluminal Devices, Percutaneous Approach (ICD-10-PCS; principal; 2017-02-04)
PROC: 4A023N7 Measurement of Cardiac Sampling and Pressure, Left Heart, Percutaneous Approach (ICD-10-PCS; 2017-02-04)
PROC: B211YZZ Fluoroscopy of Multiple Coronary Arteries using Other Contrast (ICD-10-PCS; 2017-02-04)
PROC: B215YZZ Fluoroscopy of Left Heart using Other Contrast (ICD-10-PCS; 2017-02-04)
PROC: B24BZZZ Ultrasonography of Heart with Aorta (ICD-10-PCS; 2017-02-04)
PROC: 0DH67UZ Insertion of Feeding Device into Stomach, Via Natural or Artificial Opening (ICD-10-PCS; 2017-02-07)
PROC: 5A1955Z Respiratory Ventilation, Greater than 96 Consecutive Hours (ICD-10-PCS; 2017-02-08)
PROC: 0BH17EZ Insertion of Endotracheal Airway into Trachea, Via Natural or Artificial Opening (ICD-10-PCS; 2017-02-08)
PROC: 02HV33Z Insertion of Infusion Device into Superior Vena Cava, Percutaneous Approach (ICD-10-PCS; 2017-02-08)
PROC: B24BZZZ Ultrasonography of Heart with Aorta (ICD-10-PCS; 2017-02-08)
PROC: 5A1223Z Performance of Cardiac Pacing, Continuous (ICD-10-PCS; 2017-02-13)
PROC: 05HB33Z Insertion of Infusion Device into Right Basilic Vein, Percutaneous Approach (ICD-10-PCS; 2017-02-14)
PROC: B24BZZZ Ultrasonography of Heart with Aorta (ICD-10-PCS; 2017-02-20)
DX: I21.4 Non-ST elevation (NSTEMI) myocardial infarction (principal); J96.01 Acute respiratory failure with hypoxia; I63.8 Other cerebral infarction; G92 Toxic encephalopathy; I47.2 Ventricular tachycardia; I50.31 Acute diastolic (congestive) heart failure; J44.0 Chronic obstructive pulmonary disease with (acute) lower respiratory infection; J18.9 Pneumonia, unspecified organism; N17.9 Acute kidney failure, unspecified; N18.3 Chronic kidney disease, stage 3 (moderate); I13.0 Hypertensive heart and chronic kidney disease with heart failure and stage 1 through stage 4 chronic kidney disease, or unspecified chronic kidney disease; J44.1 Chronic obstructive pulmonary disease with (acute) exacerbation; T83.83XA Hemorrhage due to genitourinary prosthetic devices, implants and grafts, initial encounter; E87.1 Hypo-osmolality and hyponatremia; F33.2 Major depressive disorder, recurrent severe without psychotic features; F05 Delirium due to known physiological condition; B37.49 Other urogenital candidiasis; I25.10 Atherosclerotic heart disease of native coronary artery without angina pectoris; I16.0 Hypertensive urgency; F17.210 Nicotine dependence, cigarettes, uncomplicated; I48.91 Unspecified atrial fibrillation; I49.5 Sick sinus syndrome; Y95 Nosocomial condition; N40.1 Benign prostatic hyperplasia with lower urinary tract symptoms; R33.8 Other retention of urine; D50.0 Iron deficiency anemia secondary to blood loss (chronic); Y73.1 Therapeutic (nonsurgical) and rehabilitative gastroenterology and urology devices associated with adverse incidents; Y92.239 Unspecified place in hospital as the place of occurrence of the external cause; E87.6 Hypokalemia; R13.10 Dysphagia, unspecified; F10.10 Alcohol abuse, uncomplicated; F29 Unspecified psychosis not due to a substance or known physiological condition; Z91.19 Patient's noncompliance with other medical treatment and regimen; Z80.42 Family history of malignant neoplasm of prostate; Z80.1 Family history of malignant neoplasm of trachea, bronchus and lung; R73.9 Hyperglycemia, unspecified; D64.9 Anemia, unspecified; E87.5 Hyperkalemia
CPT/HCPCS: 36415; 36600; 70450; 70544; 70547; 70551; 71010; 71250; 71275; 74000; 74176; 74178; 74230; 76000; 78226; 80048; 80053; 80061; 80076; 80202; 80307; 81003; 82140; 82150; 82274; 82308; 82550; 82553; 82607; 82693; 82803; 82943; 82947; 83036; 83605; 83690; 83735; 83880; 83935; 84100; 84132; 84300; 84439; 84443; 84481; 84484; 85014; 85018; 85025; 85027; 85347; 85610; 85730; 86140; 86695; 86696; 86850; 86900; 86901; 86923; 87040; 87045; 87070; 87086; 87205; 87305; 87427; 87449; 87493; 87529; 87806; 87899; 89190; 92526; 92610; 92611; 93005; 93306; 93307; 94002; 94003; 94640; 94660; 94760; 94761; 96361; 96374; 96375; 97110; 97116; 97163; 97167; 97530; 97535; 99285; A9537; C1725; C1769; C1874; C1887; C9113; G0480; G8978-GP; G8979-GP; G8980-GP; G8987-GO; G8988-GO; G8996-GN; G8997-GN; G8998-GN; J0133; J0282; J0330; J0360; J0456; J0461; J0515; J1160; J1265; J1327; J1450; J1630; J1644; J1650; J1815; J1940; J2060; J2250; J2270; J2405; J2543; J2920; J2930; J3010; J3370; J3411; J3475; J3480; J3486; J3490; J7042; J7060; Q9967

== ENCOUNTER → 2017-04-01 | Outpatient (CLI) | payer OTHER ==
[~2017-04-01] MED LIST: MR
[2017-04-01 17:08] LABS: INR 2.2; PROTHROMBIN TIME (PATIENT) 23.9 SECONDS (10.0-11.7)
== END | disposition home or self-care (01) ==
LOC: CLAB 16:17
PROVIDERS: Internal Medicine Cardiovascular Disease
DX: Z51.81 Encounter for therapeutic drug level monitoring (principal); Z79.01 Long term (current) use of anticoagulants
CPT/HCPCS: 36415; 85610